=== PATIENT | male | born 1965 | race Caucasian/White ===

== ENCOUNTER 2019-11-12 21:40 | Inpatient (IN) | payer OTHER ==
[~2019-11-12 21:40] MED LIST: SODIUM CHLORIDE 0.9% 1,000 ML IV STA
[2019-11-12] MEDS ORDERED: ACETAMINOPHEN TAB 500 MG TAB PO STA (21:55)
[2019-11-12] MEDS ORDERED: IBUPROFEN 600 MG TAB PO STA (21:55)
[2019-11-12] MEDS: SODIUM CHLORIDE 0.9% 1,000 ML IV SCH (22:06)
[2019-11-12] MEDS: SODIUM CHLORIDE 0.9% 500 ML 500 ML IV SCH ×2 (22:06→23:49)
[2019-11-12 22:10] LABS: INR 1.1 (<1.2); Partial Thromboplastin Time 23.2 sec (22.0-30.0); Prothrombin Time 11.1 sec (9.0-12.0)
[2019-11-12 22:11] LABS: Albumin 3.7 g/dL (3.5-5.0); Calcium 8.4 mg/dL (8.4-10.2); Potassium 4.7 mmol/L (3.5-5.1); Total Bilirubin 0.9 mg/dL (0.2-1.3); Total Protein 6.4 g/dL (6.3-8.2)
[2019-11-12 22:12] LABS: Basophils # (A) 0.1 k/uL (0-0.2); Basophils % (A) 1 %; Eosinophils # (A) 0.1 k/uL (0-0.7); Eosinophils % (A) 1 %; HCT 37.4 % (39.0-53.0); HGB 12.7 gm/dL (13.0-17.5); Lymphocytes # (A) 0.3 k/uL (1.0-4.8); Lymphocytes % (A) 3 %; MCH 31.7 pg (25.0-35.0); MCHC 33.9 g/dL (31.0-37.0); MCV 93.3 fL (80.0-100.0); Mean Platelet Volume 8.2; Monocytes # (A) 0.4 k/uL (0-1.0); Monocytes % (A) 5 %; Neutrophils # (A) 8.8 k/uL (1.3-7.7); Neutrophils % (A) 90 %; Platelet Count 258 k/uL (150-450); RDW 12.3 % (11.5-15.5); WBC 9.8 k/uL (3.8-10.6)
--- NOTE | 2019-11-12 22:20 | ED ---
General Adult HPI - General Chief complaint: Syncope Stated complaint: Syncope, Dizziness Time Seen by Provider: 11/12/19 21:40 Source: patient Mode of arrival: EMS Limitations: no limitations - History of Present Illness Initial comments: Weston is a 54-year-old [place] male who presents the ER today via EMS from the [facility] for evaluation of syncopal episode. Per [facility] staff the patient has been coughing for couple of days, today he was noted to have a syncopal episode and was evaluated by medical staff at the [facility] where he was noted did not have a fever or be tachycardic but developed hives over his body and appeared unwell so EMS was contacted. Patient denies headache or chest pain. - Related Data Allergies Allergy/AdvReac Type Severity Reaction Status Date / Time No Known Allergies Allergy Verified 11/12/19 22:17 Review of Systems ROS Statement: Those systems with pertinent positive or pertinent negative responses have been documented in the HPI. ROS Other: All systems not noted in ROS Statement are negative. Past Medical History Past Medical History: Unable to Obtain History of Any Multi-Drug Resistant Organisms: None Reported Past Surgical History: No Surgical Hx Reported Past Psychological History: No Psychological Hx Reported Smoking Status: Never smoker Past Alcohol Use History: None Reported Past Drug Use History: None Reported General Exam - General Exam Comments Initial Comments: Physical Exam GENERAL: Patient is well-developed and well-nourished. Patient is nontoxic and well- hydrated and is in no distress. HENT: Normocephalic, Atraumatic. EYES: PERRL, EOMI PULMONARY: Unlabored respirations. No audible rales rhonchi or wheezing was noted. CARDIOVASCULAR: There is a regular rate and rhythm without any murmurs gallops or rubs. ABDOMEN: Soft and nontender with normal bowel sounds. SKIN: Skin is clear with no lesions or rashes and otherwise unremarkable. : Deferred NEUROLOGIC: Patient is alert and oriented x3. Moving all extremities spontaneously MUSCULOSKELETAL: Normal extremities with adequate strength and full range of motion. No lower extremity swelling or edema. No calf tenderness. PSYCHIATRIC: Normal psychiatric evaluation. Limitations: no limitations Course Vital Signs 11/12/19 11/12/19 21:43 23:12 Temperature 101.3 F H 100 F H Pulse Rate 92 78 Respiratory 18 19 Rate Blood Pressure 105/57 95/57 O2 Sat by Pulse 95 97 Oximetry EKG Findings - EKG Comments: EKG Findings:: EKG was obtained as part sepsis workup, EKG was obtained at 2153, rate is 80 rhythm is sinus normal axis, normal intervals, CA 166, QRS 80, QTC 423, no acute ST elevations or depressions or evidence of acute ischemia or infarction. Medical Decision Making - Medical Decision Making Patient was seen and evaluated history is obtained from patient, EMS and she'll staff Upon arrival patient is tachycardia in the 90s, febrile with a productive cough Sepsis workup and influenza swabs were obtained EKG was obtained and is nonischemic Labs resulted with influenza A positive, elevated glucose, elevated BUN and creatinine, no leukocytosis, anemia of uncertain etiology Chest X her results with a left lower pneumonia, Rocephin and azithromycin were ordered for treatment Given the patient has Sirs criteria, left lower lobe pneumonia, influenza A, poorly controlled diabetes do not feel he will receive adequate medical care at the [facility] and would benefit from admission the hospital for IV fluid resuscitation, IV antibiotics and close monitoring. Patient agreeable to this. Patient care was discussed with medicine on-call Dr. Murray who presents with plan for admission. - Lab Data Result diagrams: 11/12/19 21:50 11/12/19 21:50 Lab Results 11/12/19 11/12/19 11/12/19 Range/Units 21:50 21:50 21:50 WBC 9.8 (3.8-10.6) k/uL RBC 4.00 L (4.30-5.90) m/uL Hgb 12.7 L (13.0-17.5) gm/dL Hct 37.4 L (39.0-53.0) % MCV 93.3 (80.0-100.0) fL MCH 31.7 (25.0-35.0) pg MCHC 33.9 (31.0-37.0) g/dL RDW 12.3 (11.5-15.5) % Plt Count 258 (150-450) k/uL Neutrophils % 90 % Lymphocytes % 3 % Monocytes % 5 % Eosinophils % 1 % Basophils % 1 % Neutrophils # 8.8 H (1.3-7.7) k/uL Lymphocytes # 0.3 L (1.0-4.8) k/uL Monocytes # 0.4 (0-1.0) k/uL Eosinophils # 0.1 (0-0.7) k/uL Basophils # 0.1 (0-0.2) k/uL PT 11.1 (9.0-12.0) sec INR 1.1 (<1.2) APTT 23.2 (22.0-30.0) sec Sodium 138 (137-145) mmol/L Potassium 4.7 (3.5-5.1) mmol/L Chloride 100 (98-107) mmol/L Carbon Dioxide 23 (22-30) mmol/L Anion Gap 15 mmol/L BUN 36 H (9-20) mg/dL Creatinine 1.62 H (0.66-1.25) mg/dL Est GFR (CKD-EPI)AfAm 54 (>60 ml/min/1.73 sqM) Est GFR (CKD-EPI)NonAf 47 (>60 ml/min/1.73 sqM) Glucose 299 H (74-99) mg/dL Plasma Lactic Acid Luis (0.7-2.0) mmol/L Calcium 8.4 (8.4-10.2) mg/dL Total Bilirubin 0.9 (0.2-1.3) mg/dL AST 26 (17-59) U/L ALT 22 (4-49) U/L Alkaline Phosphatase 86 (38-126) U/L Troponin I (0.000-0.034) ng/mL Total Protein 6.4 (6.3-8.2) g/dL Albumin 3.7 (3.5-5.0) g/dL Influenza Type A RNA (Not Detectd) Influenza Type B (PCR) (Not Detectd) 11/12/19 11/12/19 11/12/19 Range/Units 21:50 21:50 21:50 WBC (3.8-10.6) k/uL RBC (4.30-5.90) m/uL Hgb (13.0-17.5) gm/dL Hct (39.0-53.0) % MCV (80.0-100.0) fL MCH (25.0-35.0) pg MCHC (31.0-37.0) g/dL RDW (11.5-15.5) % Plt Count (150-450) k/uL Neutrophils % % Lymphocytes % % Monocytes % % Eosinophils % % Basophils % % Neutrophils # (1.3-7.7) k/uL Lymphocytes # (1.0-4.8) k/uL Monocytes # (0-1.0) k/uL Eosinophils # (0-0.7) k/uL Basophils # (0-0.2) k/uL PT (9.0-12.0) sec INR (<1.2) APTT (22.0-30.0) sec Sodium (137-145) mmol/L Potassium (3.5-5.1) mmol/L Chloride (98-107) mmol/L Carbon Dioxide (22-30) mmol/L Anion Gap mmol/L BUN (9-20) mg/dL Creatinine (0.66-1.25) mg/dL Est GFR (CKD-EPI)AfAm (>60 ml/min/1.73 sqM) Est GFR (CKD-EPI)NonAf (>60 ml/min/1.73 sqM) Glucose (74-99) mg/dL Plasma Lactic Acid Luis 3.4 H* (0.7-2.0) mmol/L Calcium (8.4-10.2) mg/dL Total Bilirubin (0.2-1.3) mg/dL AST (17-59) U/L ALT (4-49) U/L Alkaline Phosphatase (38-126) U/L Troponin I <0.012 (0.000-0.034) ng/mL Total Protein (6.3-8.2) g/dL Albumin (3.5-5.0) g/dL Influenza Type A RNA Detected H (Not Detectd) Influenza Type B (PCR) Not Detected (Not Detectd) Disposition Clinical Impression: Pneumonia, Influenza A, Sepsis, Uncontrolled diabetes mellitus, MIGUEL (acute k idney injury) Disposition: ADMITTED IP TO THIS HOSP Condition: Serious Is patient prescribed a controlled substance at d/c from ED?: No Referrals: None,Stated [Primary Care Provider] - 1-2 days
--- NOTE | 2019-11-12 22:46 | XR ---
EXAMINATION TYPE: XR chest 2V DATE OF EXAM: 11/12/2019 COMPARISON: NONE HISTORY: Syncope TECHNIQUE: 2 views FINDINGS: There is some patchy airspace infiltrate left lower lobe. Right lung is clear. There is no heart failure. There are sternal wires. IMPRESSION: Left lower lobe pneumonia. Normal heart.
[2019-11-12] MEDS ORDERED: AZITHROMYCIN 500 MG in SODIUM CHLORIDE 0.9% 250 ML IVPB STA (23:38)
[2019-11-12] MEDS ORDERED: NALOXONE 0.4 MG/ML 1 ML VIAL IV PRN (23:43)
[2019-11-13 00:22] LABS: Glucose,Whole Blood 249 mg/dL (75-99)
[2019-11-13 06:59] LABS: Glucose,Whole Blood 311 mg/dL (75-99)
[2019-11-13] MEDS: SODIUM CHLORIDE 0.9% 1,000 ML IV SCH ×3 (07:04→23:28)
[2019-11-13] MEDS: ACETAMINOPHEN TAB 325 MG TAB PO PRN ×2 (08:06→21:28)
[2019-11-13] MEDS: INSULIN ASPART (NovoLOG) 100 UNIT/ML VIAL SQ SCH ×4 (08:06→20:44)
[2019-11-13] MEDS: OSELTAMIVIR 75 MG CAP PO SCH ×2 (08:07→20:43)
[2019-11-13] MEDS: IBUPROFEN 400 MG TAB PO PRN ×2 (08:07→19:35)
[2019-11-13 11:39] LABS: Glucose,Whole Blood 266 mg/dL (75-99)
[2019-11-13] MEDS: guaiFENesin 600 MG TABLET.ER PO PRN ×2 (12:54→23:28)
[2019-11-13 16:47] LABS: Glucose,Whole Blood 283 mg/dL (75-99)
[2019-11-13] MEDS ORDERED: ALBUTEROL NEBULIZED 2.5 MG/3 ML INHALATION PRN (17:57)
[2019-11-13] MEDS ORDERED: IPRATROPIUM-ALBUTEROL 3 ML NEB INHALATION PRN (18:31)
[2019-11-13 19:24] LABS: HCT 36.1 % (39.0-53.0); MCH 31.8 pg (25.0-35.0); MCHC 33.3 g/dL (31.0-37.0); MCV 95.5 fL (80.0-100.0); Mean Platelet Volume 8.3; Platelet Count 183 k/uL (150-450); RBC 3.78 m/uL (4.30-5.90); RDW 12.5 % (11.5-15.5); WBC 13.9 k/uL (3.8-10.6)
[2019-11-13] MEDS: ATORVASTATIN 20 MG TAB PO SCH (19:31)
[2019-11-13 19:35] LABS: ALT 18 U/L (4-49); AST 23 U/L (17-59); African American GFR (CKD) >90 (>60 ml/min/1.73 sqM); Albumin 2.8 g/dL (3.5-5.0); Alkaline Phosphatase 80 U/L (38-126); Anion Gap 9 mmol/L; Blood Urea Nitrogen 25 mg/dL (9-20); Carbon Dioxide 20 mmol/L (22-30); Chloride 108 mmol/L (98-107); Glucose 288 mg/dL (74-99); Non-African American GFR(CKD) >90 (>60 ml/min/1.73 sqM); Potassium 4.3 mmol/L (3.5-5.1); Sodium 137 mmol/L (137-145); Total Bilirubin 0.7 mg/dL (0.2-1.3); Total Protein 5.4 g/dL (6.3-8.2)
[2019-11-13 19:46] LABS: Band Neutrophils % 31 %; Lymphocytes # (M) 0.97 k/uL (1.0-4.8); Metamyelocytes # (M) 1.11 k/uL (0); Metamyelocytes % 8 %; Monocytes # (M) 0.42 k/uL (0-1.0); Myelocytes # (M) 0.14 k/uL (0); Myelocytes % 1 %; Neutrophils % (M) 51 %; Nucleated Red Blood Cells 0 /100 WBC (0-0); Total Cells Counted 200
--- NOTE | 2019-11-13 19:46 | PN ---
PROGRESS NOTE DATE OF SERVICE: 11/13/2019 CHIEF COMPLAINT: Pneumonitis and uncontrolled diabetes. HISTORY OF PRESENT ILLNESS: This gentleman is doing a bit better, but he is still febrile and is still very congested, short of breath. Blood sugars are still elevated. PHYSICAL EXAMINATION: He is slightly diaphoretic. Head, ears, eyes, nose, mouth, and throat were normal. Chest demonstrates decreased breath sounds bilaterally, anteriorly and posteriorly with rales, rhonchi and productive cough. Cardiac exam demonstrates tachycardia. Abdomen is soft, nontender. IMPRESSION: 1. Bilateral bronchopneumonia. 2. Uncontrolled diabetes mellitus. PLAN: Continue with IV fluids and antibiotics. MMODL / IJN: [id number] /
[2019-11-13 19:55] LABS: Glucose,Whole Blood 274 mg/dL (75-99)
[2019-11-13] MEDS: IPRATROPIUM-ALBUTEROL 3 ML NEB INHALATION PRN (20:19)
--- NOTE | 2019-11-13 20:31 | HP ---
HISTORY AND PHYSICAL CHIEF COMPLAINT: Sepsis and pneumonitis. HISTORY OF PRESENT ILLNESS: This is the first admission for this 55-year-old Latin-Pak[place] male, brought in from the [facility]. He developed a URI with fever, cough, and chills and came to the emergency room, where he was found to be influenza positive and had bilateral bronchopneumonia. He was admitted for treatment. REVIEW OF SYSTEMS: He does have a history of diabetes and is on insulin in the [facility]. Review of systems is otherwise unremarkable. He has had no neurologic problems, heart disease, hemoptysis, abdominal pain, vomiting, diarrhea, renal failure, dysuria, hematuria, frequency. He does not smoke. In the [facility] he is on regular insulin, albuterol, aspirin, atorvastatin, lisinopril, and omeprazole. He also uses NPH 15 units twice a day. PHYSICAL EXAMINATION: Blood pressure is 145/85 with a pulse of 87, respirations 34, and his temperature is 99. In general, he appeared to be well developed and in no acute distress. He was somewhat diaphoretic. Head, ears, eyes, nose, mouth, and throat were normal. The chest demonstrates bilateral rales and rhonchi. The cardiac exam demonstrates tachycardia. The abdomen is soft and nontender. The extremities are normal. Neurologically, he is intact. IMPRESSION: 1. Influenza A. 2. Bronchopneumonia. 3. Type 2 insulin-dependent diabetes mellitus. PLAN: 1. Bed rest. 2. IV fluids. 3. Updrafts. 4. IV antibiotics. MMAMINTAL / PRIETON: [id number] /
[2019-11-13] MEDS: INSULIN NPH 300 UNIT/3 ML VIAL SQ SCH (20:44)
[2019-11-13] MEDS ORDERED: INSULIN REGULAR 100 UNIT/ML VIAL SQ SCH (21:00)
[2019-11-14] MEDS: IBUPROFEN 400 MG TAB PO PRN ×2 (03:48→16:59)
[2019-11-14] MEDS: SODIUM CHLORIDE 0.9% 1,000 ML IV SCH ×3 (03:49→17:02)
[2019-11-14 06:59] LABS: Glucose,Whole Blood 196 mg/dL (75-99)
[2019-11-14] MEDS: INSULIN NPH 300 UNIT/3 ML VIAL SQ SCH ×2 (07:12→21:07)
[2019-11-14] MEDS: INSULIN ASPART (NovoLOG) 100 UNIT/ML VIAL SQ SCH ×4 (07:12→21:06)
[2019-11-14] MEDS: OSELTAMIVIR 75 MG CAP PO SCH ×2 (07:13→21:06)
[2019-11-14] MEDS: LISINOPRIL 5 MG TAB PO SCH (07:13)
[2019-11-14] MEDS: ACETAMINOPHEN TAB 325 MG TAB PO PRN ×2 (07:13→17:00)
[2019-11-14] MEDS: ASPIRIN 81 MG PO SCH (07:13)
[2019-11-14] MEDS: PANTOPRAZOLE 40 MG TABLET PO SCH (07:14)
[2019-11-14] MEDS: IPRATROPIUM-ALBUTEROL 3 ML NEB INHALATION PRN (08:28)
--- NOTE | 2019-11-14 10:30 | CT ---
EXAMINATION TYPE: CT angio chest DATE OF EXAM: 11/14/2019 COMPARISON: None HISTORY: Influenza A, Pneumonia, Hemoptysis CT DLP: 371.8 mGycm CONTRAST: CT chest with contrast and 3D reconstruction with MIP imaging is performed without and with IV Contra st, patient injected with 100 ml mL of Isovue 370. Contrast-enhanced CT of the chest was performed through the course of the pulmonary arteries with liliana g and mediastinal window settings submitted. 3D reconstruction with MIP imaging was also performed. PULMONARY ARTERIES: The pulmonary arteries and their major tributaries are patent. I do not see amelie dence for sizable filling defect to suggest pulmonary embolic process. LUNGS: Left lower lobe infiltrate with associated pleural effusion. The remainder of the lungs are cl ear. MEDIASTINUM: Thoracic aorta is of normal caliber,however, evaluation is limited given timing of the contrast bolus. If there is concern for thoracic aortic pathology consider FRED. Correlate clinicall y . The heart is moderately enlarged. No evidence for mediastinal mass. No mediastinal lymph nodes greater than 1cm. HILAR STRUCTURES: No evidence for mass. No hilar lymph nodes greater than 1 cm. UPPER ABDOMEN: No significant abnormality is seen. IMPRESSION: 1. No evidence for Pulmonary embolism at this time. 2. Left lower lobe infiltrate and pleural effusion. Correlate for pneumonia.
[2019-11-14 11:40] LABS: Glucose,Whole Blood 266 mg/dL (75-99)
[2019-11-14 11:41] LABS: Hemoglobin A1C 8.3 % (4.0-6.0)
[2019-11-14] MEDS ORDERED: LEVOFLOXACIN 500 MG TAB PO SCH (13:00)
[2019-11-14] MEDS: guaiFENesin 600 MG TABLET.ER PO PRN (17:00)
[2019-11-14 17:03] LABS: Glucose,Whole Blood 206 mg/dL (75-99)
[2019-11-14] MEDS ORDERED: AMPICILLIN-SULBACTAM 1.5 GM in SODIUM CHLORIDE 0.9% 50 ML IVPB SCH (18:00)
--- NOTE | 2019-11-14 19:44 | PN ---
PROGRESS NOTE CHIEF COMPLAINT: Pneumonitis and fever. HISTORY OF PRESENT ILLNESS: This gentleman is still not feeling well. He is still running a temp. Blood sugars are elevated. He is also now coughing up blood. PHYSICAL EXAM: Head ears, eyes, nose, mouth, and throat are normal. Chest demonstrates bilateral rales and rhonchi in both lung guaman. Cardiac exam remains normal. Abdomen is soft, nontender. IMPRESSION: 1. Pneumonitis. 2. Uncontrolled diabetes. 3. Hemoptysis. PLAN: 1. Obtain results of TB skin test done from the [facility] when he was admitted there: Nonreactive. 2. Consult with Infectious Disease and Pulmonology. 3. CTA of the chest and continue IV fluids, antibiotics and updrafts. MMODL / IJN: [id number] /
[2019-11-14 20:59] LABS: Glucose,Whole Blood 227 mg/dL (75-99)
[2019-11-14] MEDS: AMPICILLIN-SULBACTAM 3 GM in SODIUM CHLORIDE 0.9% 100 ML IVPB SCH (21:05)
[2019-11-14] MEDS: ATORVASTATIN 20 MG TAB PO SCH (21:06)
[2019-11-14] MEDS: HEPARIN SODIUM,PORCINE 5,000 UNIT/ML 1 ML VIAL SQ SCH (21:08)
--- NOTE | 2019-11-14 23:34 | P.CONS ---
History of Present Illness - Reason for Consult Consult date: 11/14/19 Acute influenza pneumonia Requesting physician: Harinder Murray - Chief Complaint Shortness of breath or cough x few days - History of Present Illness Patient is a 54-year-old male currently at [facility] patient currently seem to have any symptoms of shortness of breath and cough that have been going on for the last few days on the day of presentation to the hospital the patient did have severe coughing episode and subsequently did have a syncopal episode EMS was called and patient was noticed to be unwell did have a fever and tachycardia subsequently the patient was brought to [facility] ER for further management of the same, on arrival to the ER the patient did have a fever of 101F. He did have mild tachycardia with heart rate of 92 initial white count was normal subsequently did have elevated white count 13.8 chest x- ray was left lower lobe pneumonia influenza PCR came back positive patient has been started on Tamiflu along with IV cefazolin he did have a CT angiogram completed this morning that was negative for PE however did shows left lower lobe pneumonia with some parapneumonic effusion infectious disease was consulted for further recommendation regarding antibiotic therapy the patient continued to be not feeling well though no fever has been recorded in the last 2 days the patient denies having any chest pain he continued to have a cough which is moderate in intensity and ending up some sputum with minimal hemoptysis no pleuritic chest pain no nausea no vomiting no shortness of for no bone pain and no diarrhea, patient did have a TB test Done at the [facility] emergency room 2 weeks ago that has been negative Review of Systems Positive point has been mentioned in the HPI rest of the systems are negative Past Medical History Past Medical History: Diabetes Mellitus, Eye Disorder, Pneumonia Additional Past Medical History / Comment(s): cataracts unable to see with his left eye and only able to see shapes peripherally in the right eye, no teeth on top and missing a few on the bottom. History of Any Multi-Drug Resistant Organisms: None Reported Past Surgical History: Appendectomy, Cardiac Valve Replacement, Orthopedic Surgery Additional Past Surgical History / Comment(s): appendix removed in 1991, heart valve replaced in 2013, and elbow surgery in 2014. Past Anesthesia/Blood Transfusion Reactions: No Reported Reaction Past Psychological History: No Psychological Hx Reported Smoking Status: Former smoker Additional Past Alcohol Use History / Comment(s): States quit smoking 20-25 years ago and stopped drinking about 10 years ago. Past Drug Use History: None Reported Medications and Allergies Home Medications Medication Instructions Recorded Confirmed Type Albuterol Nebulized [Ventolin 2.5 mg INHALATION RT-QID PRN 11/13/19 11/13/19 History Nebulized] Aspirin EC [Ecotrin Low Dose] 81 mg PO DAILY 11/13/19 11/13/19 History Atorvastatin [Lipitor] 20 mg PO HS 11/13/19 11/13/19 History Azithromycin [Zithromax Z-pack] See Taper PO DAILY 11/13/19 11/13/19 History Insulin NPH Human Isophane 15 unit SQ BID 11/13/19 11/13/19 History [humuLIN N] Insulin Regular [HumuLIN R] See Protocol SQ ACHS 11/13/19 11/13/19 History Lisinopril [Zestril] 5 mg PO DAILY 11/13/19 11/13/19 History Omeprazole 20 mg PO DAILY 11/13/19 11/13/19 History Allergies Allergy/AdvReac Type Severity Reaction Status Date / Time No Known Allergies Allergy Verified 11/13/19 12:07 Physical Exam Vitals: Vital Signs Temp Pulse Pulse Resp BP Pulse Ox 11/14/19 18:55 98.4 F 70 128/72 97 11/14/19 15:00 99.6 F 74 17 131/68 95 11/14/19 08:42 86 11/14/19 08:32 80 11/14/19 07:00 98.1 F 76 17 125/61 95 11/14/19 02:49 98.5 F 71 18 109/66 92 L Intake and Output 11/14/19 11/14/19 11/15/19 14:59 22:59 06:59 Intake Total 2079 Balance 2079 Intake: Intake, IV Titration 440 Amount Sodium Chloride 0.9% 1, 390 000 ml @ 130 mls/hr IV . Q7H42M [facility]OLO Rx#:[id number] ceFAZolin 1,000 mg In 50 Sodium Chloride 0.9% 50 ml @ 100 mls/hr IVPB Q8HR [facility]OLO Rx#:[id number] Oral 1640 Other: Voiding Method Toilet # Voids 3 # Bowel Movements 1 GENERAL DESCRIPTION: Middle-aged male lying in bed, no distress. No tachypnea or accessory muscle of respiration use. HEENT: Shows Pallor , no scleral icterus. Oral mucous membrane is dry. No pharyngeal erythema or thrush NECK: Trachea central, no thyromegaly. LUNGS: Unlabored breathing. Coarse breath sounds at bases bilaterally No wheeze or crackle. HEART: S1, S2, regular rate and rhythm. No loud murmur ABDOMEN: Soft, no tenderness , guarding or rigidity, no organomegaly EXTREMITIES: No edema of feet. SKIN: No rash, no masses palpable. NEUROLOGICAL: The patient is awake, alert, oriented x3, mood and affect normal. Results CBC & Chem 7: 11/13/19 18:58 11/13/19 18:58 Labs: Abnormal Lab Results - Last 24 Hours (Table) 11/13/19 11/14/19 11/14/19 Range/Units 18:58 06:57 11:38 POC Glucose (mg/dL) 196 H 266 H (75-99) mg/dL Hemoglobin A1c 8.3 H (4.0-6.0) % 11/14/19 11/14/19 Range/Units 17:01 20:57 POC Glucose (mg/dL) 206 H 227 H (75-99) mg/dL Hemoglobin A1c (4.0-6.0) % Microbiology - Last 24 Hours (Table) 11/14/19 11:00 Acid Fast Bacilli Culture - Preliminary Sputum 11/12/19 22:05 Blood Culture - Preliminary Blood No Growth after 24 hours Assessment and Plan Assessment: 1-patient presented to hospital with increasing shortness of breath or cough condition and did have a syncopal episode in this patient who was febrile on presentation along with tachycardia meeting criteria for sepsis source likely acute influenza with secondary bacterial pneumonia in view of for resolution of the fever with cefazolin could be community acquired pathogen, clinical suspicion for underlying tuberculosis in this patient who did have a short history and recently tested for TB antigen that was negative (1) Influenza A Current Visit: Yes Status: Acute Code(s): J10.1 - FLU DUE TO OTH IDENT INFLUENZA VIRUS W OTH RESP MANIFEST SNOMED Code(s): 266636298 (2) Pneumonia Current Visit: Yes Status: Acute Code(s): J18.9 - PNEUMONIA, UNSPECIFIED ORGANISM SNOMED Code(s): 948888170 (3) Sepsis Current Visit: Yes Status: Acute Code(s): A41.9 - SEPSIS, UNSPECIFIED ORGANISM SNOMED Code(s): 30453162 Plan: 1-obtain sputum for Gram stain and culture 2 Tamiflu 75 mg by mouth twice a day for 5 days 3-discontinue cefazolin 4-start the patient on Rocephin 2 g daily and Levaquin 500 daily We will follow on clinical condition and cultures to further adjust medication if needed Thank you for this consultation will follow this patient with you Time with Patient: Greater than 30
[2019-11-14 23:37] LABS: RBC,Urine 1 /hpf (0-5); WBC,Urine 1 /hpf (0-5)
[2019-11-14 23:41] LABS: Appearance,Urine Clear (Clear); Bilirubin,Urine Negative (Negative); Blood,Urine Small (Negative); Color,Urine Yellow; Glucose,Urine (UA) 3+ (Negative); Ketones,Urine 1+ (Negative); Protein,Urine 2+ (Negative); Urobilinogen,Urine <2.0 mg/dL (<2.0)
[2019-11-14 23:42] LABS: Leukocyte Esterase,Urine Negative (Negative)
[2019-11-14 23:45] LABS: Nitrite,Urine Negative (Negative)
[2019-11-15] MEDS: AMPICILLIN-SULBACTAM 3 GM in SODIUM CHLORIDE 0.9% 100 ML IVPB SCH ×4 (00:26→19:50)
[2019-11-15] MEDS: IPRATROPIUM-ALBUTEROL 3 ML NEB INHALATION PRN ×2 (01:17→08:44)
[2019-11-15] MEDS: IBUPROFEN 400 MG TAB PO PRN ×2 (01:34→12:55)
[2019-11-15] MEDS: ACETAMINOPHEN TAB 325 MG TAB PO PRN ×3 (01:34→23:43)
[2019-11-15] MEDS: SODIUM CHLORIDE 0.9% 1,000 ML IV SCH ×3 (03:47→22:55)
--- NOTE | 2019-11-15 06:08 | CONS ---
CONSULTATION Weston Cespedes is a 54-year-old male who presented to the ED when he was transferred from the [facility]. He had a syncopal episode and had been coughing for a few days. He complained of pain in the left side of his chest that is pleuritic in nature. He has been bringing up some grayish phlegm as well. He was seen in the ER and admitted for further evaluation and management. PAST MEDICAL HISTORY: Apparently negative for COPD, possibly positive for asthma. Positive for diabetes mellitus. Positive hypertension. SOCIAL HISTORY: He is a never smoker. He is in [facility] at this time. MEDICATIONS: His medications prior to admission were omeprazole, Zestril, insulin, Zithromax, Lipitor, Ecotrin, and Ventolin. ALLERGIES: Patient has no known drug allergies. PHYSICAL EXAMINATION: On physical examination, he was short of breath. His respiratory rate is 17, pulse rate of 74, temperature 99.6, blood pressure 131/68. His temperature when he came to the ER was 101.3 degrees Fahrenheit, blood pressure was 105/57, pulse rate of 92. HEENT reveals pupils are equal. Chest reveals decreased breath sounds in the left hemithorax. No clear wheeze. Prolonged exhalation. Right side is relatively clear. Cardiovascular system reveals an S1, S2. No S3, no S4. No murmurs. Abdomen is soft. There is no pedal edema. CT scan of the chest showed a left lower zone infiltrate. There is a pleural effusion that tracks all the way to the apex and seems somewhat loculated and is compressing the lung at the apex as well. LABS: Labs revealed a white blood cell count of 9.8, that increased to 13.9 yesterday, hemoglobin of 12 with 11.3 thousand neutrophils. Influenza type A is positive. Plasma lactic acid was 3.4 when he came in and it has come down to 1.5. Albumin is 2.8. IMPRESSION AT THIS TIME: 1. Left-sided pneumonia with possible left-sided empyema. 2. Diabetes mellitus type 2. 3. Possible asthma. At this point in time would change his antibiotic coverage to include coverage for anaerobes with Unasyn at 3 grams IV piggyback q.6. Continue him on other antibiotics per ID and keep him on GI and DVT prophylaxis. Keep his sugars under control using insulin. His prognosis at this time is guarded. We would set him up for an interventional radiology ultrasound-guided thoracentesis partly to obtain cultures and diagnosis. He may require further intervention depending on what the fluid shows. His prognosis is guarded. MMODL / IJN: [id number] /
[2019-11-15 06:51] LABS: Glucose,Whole Blood 379 mg/dL (75-99)
[2019-11-15] MEDS: HEPARIN SODIUM,PORCINE 5,000 UNIT/ML 1 ML VIAL SQ SCH ×2 (07:42→21:06)
[2019-11-15] MEDS: PANTOPRAZOLE 40 MG TABLET PO SCH (07:43)
[2019-11-15] MEDS: INSULIN ASPART (NovoLOG) 100 UNIT/ML VIAL SQ SCH ×4 (07:43→21:07)
[2019-11-15] MEDS: LISINOPRIL 5 MG TAB PO SCH (07:43)
[2019-11-15] MEDS: ASPIRIN 81 MG PO SCH (07:43)
[2019-11-15] MEDS: INSULIN NPH 300 UNIT/3 ML VIAL SQ SCH ×2 (07:43→21:06)
[2019-11-15] MEDS: OSELTAMIVIR 75 MG CAP PO SCH ×2 (07:43→21:07)
[2019-11-15] MEDS ORDERED: INSULIN NPH 300 UNIT/3 ML VIAL SQ ONE (10:30)
[2019-11-15 12:07] LABS: Glucose,Whole Blood 147 mg/dL (75-99)
[2019-11-15] MEDS: guaiFENesin 600 MG TABLET.ER PO PRN (12:56)
--- NOTE | 2019-11-15 13:18 | PN ---
PROGRESS NOTE DATE OF SERVICE: 11/15/2019 Patient is a 54-year-old male seen sitting up in bed. He Is awake and alert. Continues to complain of cough ongoing with intermittent sputum production with bloody sputum. The patient is hemodynamically stable, afebrile, in no acute distress. ON PHYSICAL EXAM: VITAL SIGNS: Temp 98.2, heart rate is 80, respiratory rate is 18, blood pressure is 146/70, O2 sats 95% on room air. HEENT. Head is normocephalic, atraumatic. Neck is supple. Trachea is midline. Lungs are decreased with end-expiratory wheeze. HEART: S1, S2 are heard. Not tachycardic. ABDOMEN: Soft. Bowel sounds heard. EXTREMITIES: With no edema. NEUROLOGIC: Patient is awake and alert. LABS: No new labs to review. IMAGING: No new imaging to review. IMPRESSION AT THIS TIME: 1. Left-sided pneumonia with possible left-sided empyema. 2. Diabetes mellitus type 2. 3. Possible asthma. PLAN: Continue current medications, which have been reviewed. Continue antibiotics per Infectious Disease. Continue GI and DVT prophylaxis. Continue insulin for control of hyperglycemia. Interventional Radiology has been consulted for ultrasound-guided thoracentesis per nursing that will be done probably tomorrow. Will add budesonide 0.5 mg via nebulizer b.i.d. to see if that will help with decreased airway inflammation and continue to follow patient closely with you making further changes as necessary. MMODL / IJN: [id number] /
--- NOTE | 2019-11-15 13:32 | PN ---
PROGRESS NOTE CHIEF COMPLAINT: Pneumonitis and diabetes. HISTORY OF PRESENT ILLNESS: This gentleman is doing a little bit better. Cough is a little bit less congested. Sugar is still high. PHYSICAL EXAMINATION: Chest still demonstrates rales and rhonchi bilaterally with expiratory wheezing. Cardiac exam is normal. Abdomen is soft, nontender. IMPRESSION: 1. Bronchial pneumonia. 2. Uncontrolled diabetes. PLAN: Increase his Novolin insulin to 15 to 20 units twice a day and continue with updrafts, antibiotics and IV fluids. MMODL / IJN: [id number] /
--- NOTE | 2019-11-15 14:01 | CDI ---
Documentation Clarification Form Date: 11/15/2019 01:43:58 PM From: Brie Hartman RN, CCDS Admit Date: 11/12/2019 11:44:00 PM Patient Name: Weston Cespedes Visit Number: [id number] Discharge Date: ATTENTION: The Clinical Documentation Specialists (CDI) and [facility] Coding Staff appreciate your assistance in clarifying documentation. Please respond to the clarification below the line at the bottom and electronically sign. The CDI & [facility] Coding staff will review the response and follow-up if needed. Please note: Queries are made part of the Legal Health Record. If you have any questions, please contact the author of this message via ITS. Dr. Harinder Murray The patient has uncontrolled diabetes, as indicated on progress note on 11/13- 11/14 and further clarification History/Risk Factors: Diabetes Mellitus type 2, Clinical Indicators: 54-year-old male who presents to ER on 11/12 for evaluation of syncopal episode and coughing for couple of days. 11/12 VS 105/57 92 18 101.3 11/12 Labs: lactic acid 3.4. Influenza A detected: Glucose 299, 11/13 Glucose: 311, 266, 274 Treatment: Novolon SQ ACHS CHOLO coverage Humulin N 20 units SQ BID Monitor Glucose ACHS In order to capture the severity of Illness and necessary documentation specificity, please clarify Uncontrolled Diabetes Mellitus: DM Type 2, with Hyperglycemia DM Type 2 with Hypoglycemia Other, please specify Unable to Determine (Last Revision: June 2017) MTDD
--- NOTE | 2019-11-15 15:51 | PN ---
PROGRESS NOTE DATE OF SERVICE: 11/15/2019 REASON FOR FOLLOWUP: 1. Acute influenza. 2. Pneumonia and a question of empyema. INTERVAL HISTORY: The patient is currently afebrile. He is still complaining of shortness of breath. He continues to have a cough which has been moderate in intensity, but he is not bringing up any more sputum. No hemoptysis. No nausea, no vomiting. No abdominal pain or diarrhea. PHYSICAL EXAMINATION: Blood pressure 146/70 with a pulse of 78, temperature 98.2. He is 95% on room air. General description is a middle-aged male lying in bed in no distress. RESPIRATORY SYSTEM: Unlabored breathing. Coarse breath sounds in the bases bilaterally. HEART: S1, S2. Regular rate and rhythm. A ABDOMEN: Soft. No tenderness. T LABS: No new labs have been obtained today. DIAGNOSTIC IMPRESSION AND PLAN: 1. Patient with acute influenza, for which the patient is currently covered with Tamiflu; to finish a 5-day course of therapy. 2. Patient with left lower lobe pneumonia with concern for possible empyema. The thoracocentesis per Radiology is currently pending. Patient is covered with Unasyn; to continue, adjusting antibiotic further based on the culture report. Continue with supportive care. MMODL / IJN: [id number] /
[2019-11-15 16:56] LABS: Glucose,Whole Blood 92 mg/dL (75-99)
--- NOTE | 2019-11-15 18:12 | US ---
EXAMINATION TYPE: US chest DATE OF EXAM: 11/15/2019 COMPARISON: CT 11/14/2019 CLINICAL HISTORY: pleural Effusion. TECHNIQUE: Targeted ultrasound of the posterior lower bilateral hemithoraces EXAM MEASUREMENTS: Left Pleural Effusion pocket size: 9.0 cm - Debris visualized within Left skin surface to fluid distance: 4.3 cm Left side marked for possible thoracentesis outside the dept. Pulmonologists are able to review the images in the patient?s EMR. Debris visualized within IMPRESSIONS: Left pleural effusion is demonstrated.
[2019-11-15] MEDS: BUDESONIDE 0.5 MG/2 ML NEBU INHALATION SCH (19:06)
[2019-11-15 20:20] LABS: Glucose,Whole Blood 168 mg/dL (75-99)
[2019-11-15] MEDS: ATORVASTATIN 20 MG TAB PO SCH (21:07)
[2019-11-16] MEDS: AMPICILLIN-SULBACTAM 3 GM in SODIUM CHLORIDE 0.9% 100 ML IVPB SCH ×5 (00:49→23:25)
[2019-11-16] MEDS: SODIUM CHLORIDE 0.9% 1,000 ML IV SCH ×3 (03:09→17:17)
[2019-11-16] MEDS: guaiFENesin 600 MG TABLET.ER PO PRN ×2 (05:51→21:08)
[2019-11-16 06:57] LABS: Glucose,Whole Blood 168 mg/dL (75-99)
[2019-11-16] MEDS: INSULIN ASPART (NovoLOG) 100 UNIT/ML VIAL SQ SCH ×4 (07:12→21:01)
[2019-11-16] MEDS: INSULIN NPH 300 UNIT/3 ML VIAL SQ SCH ×2 (07:12→17:17)
[2019-11-16] MEDS: BUDESONIDE 0.5 MG/2 ML NEBU INHALATION SCH ×2 (07:48→20:08)
[2019-11-16] MEDS: IPRATROPIUM-ALBUTEROL 3 ML NEB INHALATION PRN (07:48)
[2019-11-16] MEDS: LISINOPRIL 5 MG TAB PO SCH (08:30)
[2019-11-16] MEDS: PANTOPRAZOLE 40 MG TABLET PO SCH (08:30)
[2019-11-16] MEDS: OSELTAMIVIR 75 MG CAP PO SCH ×2 (08:30→21:01)
[2019-11-16] MEDS: HEPARIN SODIUM,PORCINE 5,000 UNIT/ML 1 ML VIAL SQ SCH ×3 (10:11→21:01)
[2019-11-16] MEDS: ASPIRIN 81 MG PO SCH ×2 (10:11→12:07)
--- NOTE | 2019-11-16 11:38 | CDI ---
Documentation Clarification Form Date: 11/16/2019 11:08:19 AM From: Brie Hartman RN, CCDS Admit Date: 11/12/2019 11:44:00 PM Patient Name: Weston Cespedes Visit Number: [id number] Discharge Date: ATTENTION: The Clinical Documentation Specialists (CDI) and [facility] Coding Staff appreciate your assistance in clarifying documentation. Please respond to the clarification below the line at the bottom and electronically sign. The CDI & [facility] Coding staff will review the response and follow-up if needed. Please note: Queries are made part of the Legal Health Record. If you have any questions, please contact the author of this message via ITS. Dr. Harinder Murray The diagnosis sepsis was documented in the emergency room clinical impression, in the H&P on 11/13, as chief complaint sepsis and pneumonitis, but is not noted in subsequent documentation. History/Risk Factors: Influenza A, Bronchopneumonia, Diabetes Mellitus Type 2 Clinical Indicators: 54-year-old male present to ER on 11/12 for evaluation of syncopal episode. He has been coughing, developed hives over his body and appeared unwell. 11/12 on admission Vital signs: 105/57, 92 18 101.3, 95/57 78 19 100.0 97 % RA 11/12 Labs: WBC 9.8, Creatinine 1.62, Lactic acid 3.4 ER: Given the patient has SIRS criteria, left lower lobe pneumonia, influenza A, poorly controlled diabetes would benefit from admission. IV antibiotics and close monitoring. 11/13 ID (Dr. Joseph) " this patient who was febrile on presentation along with tachycardia meeting criteria for sepsis source likely acute influenza with secondary bacterial pneumonia" Treatment: Unasyn 3 gm IV Q 6 hrs Pulmicort 0.5 mg Inhalation bid Tamiflu 75 MG po Q 12 hrs Please clarify if the sepsis was: Present/active this admission Treated and resolved this admission Ruled out Other, please specify Clinically unable to determine (Last Query Form Revision: May 2019) JESUSITAD
[2019-11-16 11:57] LABS: Glucose,Whole Blood 211 mg/dL (75-99)
[2019-11-16] MEDS: ACETAMINOPHEN TAB 325 MG TAB PO PRN ×2 (12:07→21:08)
--- NOTE | 2019-11-16 12:11 | XR ---
EXAMINATION TYPE: XR chest 1V portable DATE OF EXAM: 11/16/2019 Comparison: CT 11/14/2019 Clinical History: 54-year-old male post left thoracentesis Findings: Median sternotomy wires and post-CABG clips in the mediastinum. Heart remains borderline enlarged. Re sidual small left effusion but with extensive opacities throughout the left mid and lower lung. No pn eumothorax seen. Impression: Residual small left effusion but with extensive opacities throughout the left mid and lower lung. Pat ient should be followed to exclude the development of cavitary pneumonia or cavitary change from atyp ical infections.
--- NOTE | 2019-11-16 14:08 | PN ---
PROGRESS NOTE Patient was seen again on 11/16/2019. He underwent thoracentesis but apparently they could only get about 50 mL of fluid. He continues to have shortness of breath. On physical examination, his respiratory rate is 18, pulse rate of 90, blood pressure 157/83, O2 saturation on 2 L by nasal cannula is 97%. HEENT: Reveals pupils that are equal. Chest reveals decreased breath sounds on the left. Cardiovascular system reveals an S1, S2. Abdomen is soft. There is no pedal edema. IMPRESSION: 1. Left-sided empyema with loculated effusion likely for which he may benefit from decortication and will consult thoracic surgery to further evaluate him. 2. Diabetes mellitus. 3. Influenza A. At this point in time, continue him on his current medications and antibiotics per ID. Increase his activity level and have thoracic surgery further evaluate the patient. LENY / ARANZA: [id number] /
--- NOTE | 2019-11-16 15:59 | US ---
EXAMINATION TYPE: US thoracentesis DATE OF EXAM: 11/16/2019 COMPARISON: NONE HISTORY: Pleural effusion. FINDINGS: Maximal barrier technique was utilized. The skin overlying a suitable pocket of fluid was localized and the overlying skin prepped and draped. Lidocaine was used for local anesthesia. Ultras ound was used with sterile technique. A 5 Frisian catheter over guide needle was advanced into the pl eural fluid collection using ultrasound guidance and the needle removed, catheter advanced. Approxim ately 50 cc of straw colored turbid fluid was removed. Specimen sent for laboratory analysis. Cathet er was withdrawn and hemostasis achieved. There is no immediate complication. The patient discharge d in stable condition without complication. Postprocedure chest x-ray was pending. Low-level internal echoes are present suggesting some loculation, dense consolidation. IMPRESSION: STATUS POST ULTRASOUND GUIDED DIAGNOSTIC THORACENTESIS, POST PROCEDURE CHEST X-RAY PENDIN G. THIS PROCEDURE WAS PERFORMED BY THE UNDERSIGNED.
[2019-11-16 17:09] LABS: Glucose,Whole Blood 196 mg/dL (75-99)
[2019-11-16] MEDS: LISINOPRIL 20 MG TAB PO SCH (17:17)
[2019-11-16 18:02] LABS: Glucose, BF Source Thoracentesis Fluid; Glucose, Body Fluid <4 mg/dL; LDH, Body Fluid Source Thoracentesis Fluid; Total Protein, Body Fluid 2900 mg/dL
--- NOTE | 2019-11-16 18:42 | PN ---
PROGRESS NOTE DATE OF SERVICE: 11/16/2019. REASON FOR FOLLOWUP: 1. Acute influenza. 2. Pneumonia with empyema. INTERVAL HISTORY: Patient is currently afebrile, has been breathing comfortably. Denies having any chest pain. Cough decreased in intensity. No nausea, no vomiting. No abdominal pain. No diarrhea. PHYSICAL EXAMINATION: Blood pressure is 132/77 with a pulse of 80, temperature of 99.1. He is 97% on room air. General description is a middle-aged male lying in bed in no distress. Respiratory system: Unlabored breathing, decreased breath sounds in the bases. No wheeze. Heart S1, S2 regular rate and rhythm. ABDOMEN: Soft, no tenderness. LABS: No new labs have been obtained today. DIAGNOSTIC IMPRESSION AND PLAN: 1. Patient with acute influenza for which the patient is currently covered with Tamiflu to finish a five day course of therapy. 2. The patient with pneumonia, parapneumonic effusion, status post thoracocentesis with concern for loculated fluid for which CT surgery has been consulted. 3. We will keep the patient on Unasyn and follow up on the culture and adjust antibiotic further if needed. 4. Continue supportive care. MMODL / IJN: [id number] /
--- NOTE | 2019-11-16 19:56 | PN ---
PROGRESS NOTE CHIEF COMPLAINT: Bronchopneumonia with hemoptysis, influenza and uncontrolled diabetes. HISTORY OF PRESENT ILLNESS: This gentleman is slowly improving. His chest is improving. However, he has a left- sided pleural effusion and he is going today for thoracentesis. Blood sugars are still slightly elevated, but acceptable. PHYSICAL EXAMINATION: He still has extensive wheezing, rales and rhonchi bilaterally with dullness at both bases. Cardiac exam is normal. Abdomen is soft, nontender. IMPRESSION: 1. Bronchopneumonia. 2. Left pleural effusion. 3. Uncontrolled diabetes. PLAN: Thoracentesis today. Continue with updrafts, antibiotics and IV fluids along with management of his diabetes. MMODL / IJN: [id number] /
[2019-11-16 20:22] LABS: Appearance,BF Cloudy; Color,BF Yellow
[2019-11-16 20:23] LABS: Mononuclear WBC,Body Fluid 7 %; Nucleated Cells, Body Fluid 8750 /uL; Polynuclear WBC,Body Fluid 93 %; RBC, Body Fluid 1800 /uL
[2019-11-16 20:44] LABS: Glucose,Whole Blood 221 mg/dL (75-99)
[2019-11-16] MEDS: ATORVASTATIN 20 MG TAB PO SCH (21:01)
[2019-11-17] MEDS: AMPICILLIN-SULBACTAM 3 GM in SODIUM CHLORIDE 0.9% 100 ML IVPB SCH ×4 (05:46→23:10)
[2019-11-17 06:52] LABS: Glucose,Whole Blood 193 mg/dL (75-99)
[2019-11-17] MEDS: INSULIN ASPART (NovoLOG) 100 UNIT/ML VIAL SQ SCH ×4 (07:45→20:33)
[2019-11-17] MEDS: INSULIN NPH 300 UNIT/3 ML VIAL SQ SCH ×2 (07:45→17:14)
[2019-11-17] MEDS: IPRATROPIUM-ALBUTEROL 3 ML NEB INHALATION PRN ×3 (07:54→21:35)
[2019-11-17] MEDS: BUDESONIDE 0.5 MG/2 ML NEBU INHALATION SCH ×2 (07:54→21:35)
[2019-11-17] MEDS: OSELTAMIVIR 75 MG CAP PO SCH ×2 (08:09→22:03)
[2019-11-17] MEDS: PANTOPRAZOLE 40 MG TABLET PO SCH (08:09)
[2019-11-17] MEDS: HEPARIN SODIUM,PORCINE 5,000 UNIT/ML 1 ML VIAL SQ SCH ×2 (08:09→20:50)
[2019-11-17] MEDS: LISINOPRIL 20 MG TAB PO SCH (08:09)
[2019-11-17] MEDS: ASPIRIN 81 MG PO SCH (08:09)
--- NOTE | 2019-11-17 08:10 | XR ---
EXAMINATION TYPE: XR chest 1V portable DATE OF EXAM: 11/17/2019 COMPARISON: 11/16/2019 INDICATION: Left pleural effusion TECHNIQUE: Single frontal view of the chest is obtained. FINDINGS: The heart size is normal. The pulmonary vasculature is normal. There is small left pleural effusion somewhat diminished from comparison. Sternotomy wires are present from prior CABG. IMPRESSION: 1. Diminished left pleural effusion.
[2019-11-17 11:32] LABS: Glucose,Whole Blood 189 mg/dL (75-99)
--- NOTE | 2019-11-17 14:53 | P.GSCN ---
History of Present Illness Consult date: 11/17/19 Reason for Consult: Left pleural effusion Requesting physician: Asael Doshi History of present illness: This is a 54-year-old [place] male patient who currently is at [facility]. He has a past medical history significant for type 2 insulin-dependent diabetes mellitus, eye disorder and remote history of nicotine dependence quit over 20 years ago. The patient was transported from the [facility] to the emergency department here at [facility] due to complaints of fever, chills and productive cough. He reports he did have some episodes of nausea as well but denies any complaints of diarrhea, constipation, headache, dizziness or pain. He did test positive for influenza A and a chest x-ray on presentation to the emergency department showed a left lower pneumonia. The patient was subsequently admitted for further evaluation and treatment and on 11/14/2019 underwent a CTA of his chest. The chest CTA results demonstrated a left lower lobe infiltrate, pleural effusion and no evidence of pulmonary embolism. Due to the left pleural effusion and ultrasound of his chest was completed which showed a left pleural effusion pocket size measuring 9.0 cm. Yesterday 11/16/2019 a left-sided ultrasound-guided thoracentesis was completed by interventional radiology with approximately 50 mL of straw-colored turbid fluid drained. Status post the drainage of the left pleural fluid a consult was placed to Dr. Jim Hamilton from cardiothoracic surgery for further evaluation and treatment recommendations. Review of Systems A 14 point review of systems was completed was negative except as mentioned in the HPI. Past Medical History Past Medical History: Diabetes Mellitus, Eye Disorder, Pneumonia Additional Past Medical History / Comment(s): cataracts unable to see with his left eye and only able to see shapes peripherally in the right eye, no teeth on top and missing a few on the bottom. History of Any Multi-Drug Resistant Organisms: None Reported Past Surgical History: Appendectomy, Cardiac Valve Replacement, Orthopedic Surgery Additional Past Surgical History / Comment(s): appendix removed in 1991, heart valve replaced in 2013, and elbow surgery in 2014. Past Anesthesia/Blood Transfusion Reactions: No Reported Reaction Past Psychological History: No Psychological Hx Reported Smoking Status: Former smoker Past Alcohol Use History: None Reported Additional Past Alcohol Use History / Comment(s): States quit smoking 20-25 years ago and stopped drinking about 10 years ago. Past Drug Use History: None Reported - Past Family History Father History Unknown: Yes Mother History Unknown: Yes Medications and Allergies Home Medications Medication Instructions Recorded Confirmed Type Albuterol Nebulized [Ventolin 2.5 mg INHALATION RT-QID PRN 11/13/19 11/13/19 History Nebulized] Aspirin EC [Ecotrin Low Dose] 81 mg PO DAILY 11/13/19 11/13/19 History Atorvastatin [Lipitor] 20 mg PO HS 11/13/19 11/13/19 History Azithromycin [Zithromax Z-pack] See Taper PO DAILY 11/13/19 11/13/19 History Insulin NPH Human Isophane 15 unit SQ BID 11/13/19 11/13/19 History [humuLIN N] Insulin Regular [HumuLIN R] See Protocol SQ ACHS 11/13/19 11/13/19 History Lisinopril [Zestril] 5 mg PO DAILY 11/13/19 11/13/19 History Omeprazole 20 mg PO DAILY 11/13/19 11/13/19 History Allergies Allergy/AdvReac Type Severity Reaction Status Date / Time No Known Allergies Allergy Verified 11/13/19 12:07 Surgical - Exam Vital Signs Temp Pulse Resp BP Pulse Ox 101.3 F H 92 18 105/57 95 11/12/19 21:43 11/12/19 21:43 11/12/19 21:43 11/12/19 21:43 11/12/19 21:43 - General well developed, well nourished, no distress, no pain, obese - Eyes No scleral icterus - ENT no pharyngeal erythema or thrush. normal pinna, normal nares, normal mucosa, no hearing loss, no congestion - Neck Neck is supple, no lymphadenopathy. no masses, no bruits, trachea midline, no venous distension - Respiratory Lung sounds with coarse rhonchi throughout, diminished to his bilateral bases left greater than right. Respirations are symmetrical and nonlabored. Loose productive cough. - Cardiovascular Regular rhythm and rate. S1 and S2 present, negative for S3, gallop or murmur. No edema present. - Abdomen Abdomen is soft, nontender nondistended. Active bowel sounds present all 4 abdominal quadrants. No guarding or rigidity. No organomegaly appreciated. - Genitourinary Deferred - Rectum Deferred - Integumentary no rash, no growths, no abnormal pigmentation - Neurologic Awake, alert and oriented 3. - Psychiatric oriented to time, oriented to person, oriented to place, speech is normal, memory intact Results - Labs 11/13/19 18:58 11/13/19 18:58 Abnormal Lab Results - Last 24 Hours (Table) 11/16/19 11/16/19 11/17/19 Range/Units 17:04 20:40 06:50 POC Glucose (mg/dL) 196 H 221 H 193 H (75-99) mg/dL 11/17/19 Range/Units 11:28 POC Glucose (mg/dL) 189 H (75-99) mg/dL Microbiology - Last 24 Hours (Table) 11/16/19 11:25 Gram Stain - Preliminary Thoracic Fluid Body Fluid Culture - Preliminary 11/12/19 22:05 Blood Culture - Preliminary Blood No Growth after 96 hours 11/16/19 11:25 Fungal Culture - Preliminary Thoracic Fluid - Imaging Comments: Ultrasound of the chest results reviewed. Chest x-ray: report reviewed, image reviewed CT scan - chest: report reviewed, image reviewed Assessment and Plan Assessment: 1. Left-sided pleural effusion 2. Influenza A 3. Left lower lobe pneumonia 4. Diabetes mellitus type 2 5. Remote history of tobacco abuse Plan: The patient was seen and examined at his bedside on the fourth floor medical surgical unit. He has Investor officers present at his bedside. He is in no acute distress. His chart and diagnostics were reviewed. He was seen and examined by Dr. Basilio Wagner from cardiothoracic surgery. No surgical i ntervention is warranted at this time. We repeat the ultrasound of his chest and if able we have asked interventional radiology to place a left chest pigtail catheter. If the pigtail catheter is placed we will start alteplase pleural instillation tomorrow 11/18/2019. Encourage use of his incentive spirometry every hour while awake. Bronchodilators and pulmonary management per Dr. Doshi's recommendations. Antibiotic management per infectious disease. Medical/diabetes management per primary care service. Continue to monitor daily chest x-rays. More recommendations to follow based on patient's clinical course. Thank you Dr. Doshi for this consult and we look for to working with you in the care of this patient. Time with Patient: Greater than 30
--- NOTE | 2019-11-17 15:13 | US ---
EXAMINATION TYPE: US chest DATE OF EXAM: 11/17/2019 COMPARISON: CT 11/14/2019, ultrasound 11/15/2019, chest x-ray 11/17/2019 CLINICAL HISTORY: US Left chest pleural effusion.. Influenza A, left thoracentesis done yesterday, pr ocedure planning TECHNIQUE: Targeted ultrasound of the posterior lower Left EXAM MEASUREMENTS: Left Pleural Effusion pocket size: 13.4 cm - did not place jordan on patient due to extensive loculati ons seen within entire pocket. Left side NOT marked for possible thoracentesis outside the dept. Pulmonologists are able to review the images in the patient?s EMR. Limited ultrasound posterior left chest. Clear differentiation between possible loculations, effusion and lung not Identified. IMPRESSIONS: Multilocular appearance, difficult to state with certainty whether there is abnormal liliana g present. No evident sizable effusion. No suitable pocket identified for PICC catheter placement.
[2019-11-17 16:34] LABS: Glucose,Whole Blood 234 mg/dL (75-99)
--- NOTE | 2019-11-17 17:19 | PN ---
PROGRESS NOTE DATE OF SERVICE: 11/17/2019 Patient is a 54-year-old male who was seen lying in bed, is awake, alert. Continues to complain of difficulty breathing with cough. Patient is afebrile, hemodynamically stable, in no acute distress. PHYSICAL EXAMINATION: VITAL SIGNS: Temperature is 98.3, heart rate 88, respiratory rate 19, blood pressure 132/81, oxygen saturation 92% on room air. HEENT: Head is normocephalic, atraumatic. NECK: Neck is supple. Trachea is midline. LUNGS: Decreased breath sounds and end-expiratory wheeze. HEART: S1 and S2 are heard. Not tachycardic. ABDOMEN: Soft. Bowel sounds are positive. EXTREMITIES: No edema. NEUROLOGIC: The patient is awake and alert. LABS/IMAGING: No new labs to review. Fluid culture from thoracic fluid is pending. Ultrasound of the chest shows multi-loculated appearance; difficult to state with certainty whether there is abnormal lung present. No sizable effusion. No suitable pocket identified for PICC catheter placement. Chest x-ray this a.m. shows diminished left pleural effusion. IMPRESSION: 1. Left-sided empyema with loculated effusion likely, for which he may benefit from decortication. Thoracic Surgery is on consult, which is pending. 2. Diabetes mellitus. 3. Influenza A. PLAN: Continue current medications, which have been reviewed. Continue antibiotics per Infectious Disease. Continue bronchodilators and aerosolized steroids. Continue GI and DVT prophylaxis. We will continue to follow patient closely with you, making further changes as necessary. MMODL / IJN: [id number] /
[2019-11-17] MEDS: SODIUM CHLORIDE 0.9% 1,000 ML IV SCH (17:43)
[2019-11-17 18:11] LABS: African American GFR (CKD) >90 (>60 ml/min/1.73 sqM); Anion Gap 10 mmol/L; Blood Urea Nitrogen 8 mg/dL (9-20); Calcium 7.8 mg/dL (8.4-10.2); Carbon Dioxide 24 mmol/L (22-30); Chloride 101 mmol/L (98-107); Glucose 217 mg/dL (74-99); Non-African American GFR(CKD) >90 (>60 ml/min/1.73 sqM); Potassium 3.2 mmol/L (3.5-5.1); Sodium 135 mmol/L (137-145)
[2019-11-17 19:33] LABS: Basophils % (A) 0 %; Eosinophils % (A) 0 %; HCT 33.9 % (39.0-53.0); HGB 11.2 gm/dL (13.0-17.5); Lymphocytes # (A) 1.3 k/uL (1.0-4.8); Lymphocytes % (A) 12 %; MCH 31.1 pg (25.0-35.0); MCHC 32.9 g/dL (31.0-37.0); MCV 94.7 fL (80.0-100.0); Mean Platelet Volume 8.4; Monocytes % (A) 9 %; Neutrophils # (A) 8.3 k/uL (1.3-7.7); Neutrophils % (A) 77 %; Platelet Count 360 k/uL (150-450); RBC 3.58 m/uL (4.30-5.90); RDW 12.9 % (11.5-15.5); WBC 10.9 k/uL (3.8-10.6)
--- NOTE | 2019-11-17 19:44 | XR ---
EXAMINATION TYPE: XR abdomen 4 view DATE OF EXAM: 11/17/2019 7:31 PM CLINICAL HISTORY: Pain and distention TECHNIQUE: 4V COMPARISON: None. FINDINGS: There is consolidative opacity through much of the left lower lobe silhouetting the entire left hemidiaphragm. The right lung bases clear. Scattered gas is seen in mildly dilated small bowel loops. Gas and fecal material is seen in througho ut ascending and transverse and descending colon. There is no pneumoperitoneum or pneumatosis. No definite acute soft tissue or skeletal findings. IMPRESSION: 1. Abnormal bowel gas pattern, pattern suggests ileus at the present time; continued clinical survei llance and consideration of follow-up radiographs suggested. 2. Silhouetted left hemidiaphragm consistent with partial left lower lobe airlessness/ pleural effusi on.
[2019-11-17 20:26] LABS: Glucose,Whole Blood 130 mg/dL (75-99)
[2019-11-17] MEDS: ATORVASTATIN 20 MG TAB PO SCH (22:00)
--- NOTE | 2019-11-17 22:44 | CT ---
EXAMINATION TYPE: CT chest wo/w con DATE OF EXAM: 11/17/2019 COMPARISON: 11/14/2019 HISTORY: LT pleural effusion CT DLP: 926.9 mGycm Automated exposure control for dose reduction was used. CONTRAST: CT scan of the chest is performed with IV Contrast, patient injected with 100 mL of Isovue 300. FINDINGS: AIRWAYS, LUNGS, AND PLEURAL SPACES: The airways are unremarkable. The ill-defined left lower lobe pul monary consolidation with a 3 cm geographic zone of cavitation is redemonstrated, associated with con sistent with a clinical diagnosis of pneumonia. The left pleural effusion has increased from mild to [id number] in volume over the past 3 days, and appears mildly complex. MEDIASTINUM: While not a dedicated pulmonary CTA, there are no evident pulmonary arterial filling def ects to suggest pulmonary embolism. There are no acute aortic findings. There is mild cardiomegaly wi th panchamber enlargement and coronary calcifications, status post CABG. Pericardial space is negativ e. OTHER: No additional significant abnormality is seen. IMPRESSION: LEFT PLEURAL-PARENCHYMAL CHANGES REDEMONSTRATED DISCUSSED, WITH MILD INTERVAL INCREASE IN LEFT PLE URAL EFFUSION.
[2019-11-17 22:58] LABS: Glucose,Whole Blood 126 mg/dL (75-99)
[2019-11-17] MEDS: ACETAMINOPHEN TAB 325 MG TAB PO PRN (23:10)
--- NOTE | 2019-11-17 23:39 | PN ---
PROGRESS NOTE DATE OF SERVICE: REASON FOR FOLLOWUP: 1. Acute influenza. 2. Pneumonia with parapneumonic effusion. INTERVAL HISTORY: The patient did have a low-grade temperature of 100.6 today. The patient was breathing comfortably. Denies having any chest pain. Cough has decreased in intensity. No nausea, no vomiting. No abdominal pain. No diarrhea. PHYSICAL EXAMINATION: Blood pressure 135/61 with a pulse of 83, temperature 98.9. He is 91% on room air. General description is a middle-aged male lying in bed in no distress. RESPIRATORY SYSTEM: Unlabored breathing with decreased breath sounds at the base. No wheeze. HEART: S1, S2. Regular rate and rhythm. ABDOMEN: Soft. No tenderness. LAB: Hemoglobin 11.2, white count 10.9, BUN of 8, creatinine 0.82. DIAGNOSTIC IMPRESSION AND PLAN: 1. Patient admitted to hospital with acute influenza, for which the patient has completed a 5-day course of oral Tamiflu. 2. Patient with pneumonia and parapneumonic effusion, status post thoracentesis. While waiting for those cultures to finalize, keep the patient on Unasyn, adjusting antibiotic further based on the culture report. Continue with supportive care. MMODL / IJN: [id number] /
[2019-11-18] MEDS: AMPICILLIN-SULBACTAM 3 GM in SODIUM CHLORIDE 0.9% 100 ML IVPB SCH ×3 (06:03→19:43)
[2019-11-18 07:06] LABS: Glucose,Whole Blood 111 mg/dL (75-99)
[2019-11-18] MEDS: INSULIN ASPART (NovoLOG) 100 UNIT/ML VIAL SQ SCH ×4 (07:11→19:46)
[2019-11-18] MEDS: ASPIRIN 81 MG PO SCH (07:11)
[2019-11-18] MEDS: PANTOPRAZOLE 40 MG TABLET PO SCH (07:11)
[2019-11-18] MEDS: LISINOPRIL 20 MG TAB PO SCH (07:13)
[2019-11-18] MEDS: HEPARIN SODIUM,PORCINE 5,000 UNIT/ML 1 ML VIAL SQ SCH ×2 (07:13→19:46)
[2019-11-18] MEDS: INSULIN NPH 300 UNIT/3 ML VIAL SQ SCH ×2 (07:16→19:43)
--- NOTE | 2019-11-18 08:56 | XR ---
EXAMINATION TYPE: XR chest 1V portable DATE OF EXAM: 11/18/2019 HISTORY: Shortness of breath. COMPARISON: 11/17/2019 TECHNIQUE: Single view of the chest is submitted. FINDINGS: Demonstrated are scattered senescent parenchymal change. Persistent left perihilar and left basilar infiltrate. Underlying atelectasis and/or effusion also co nsidered. No interval change appreciated. The heart is stable. Hilar and mediastinal structures are within normal limits. Degenerative changes are seen of the dorsal spine. IMPRESSION: 1. Persistent left perihilar and left basilar infiltrate. Underlying atelectasis and/or effusion als o considered. No interval change appreciated.
[2019-11-18] MEDS: IPRATROPIUM-ALBUTEROL 3 ML NEB INHALATION PRN ×4 (09:05→19:57)
[2019-11-18] MEDS: BUDESONIDE 0.5 MG/2 ML NEBU INHALATION SCH ×2 (09:06→19:57)
[2019-11-18] MEDS ORDERED: BISACODYL 10 MG SUPP RECTAL STA (09:15)
[2019-11-18 10:21] LABS: Basophils % (A) 0 %; Eosinophils % (A) 0 %; HGB 10.9 gm/dL (13.0-17.5); Lymphocytes # (A) 1.9 k/uL (1.0-4.8); Lymphocytes % (A) 15 %; MCH 31.3 pg (25.0-35.0); Monocytes # (A) 0.9 k/uL (0-1.0); Monocytes % (A) 7 %; Neutrophils # (A) 9.4 k/uL (1.3-7.7); Neutrophils % (A) 75 %; Platelet Count 364 k/uL (150-450); RBC 3.47 m/uL (4.30-5.90); RDW 13.1 % (11.5-15.5); WBC 12.6 k/uL (3.8-10.6)
[2019-11-18 10:31] LABS: African American GFR (CKD) >90 (>60 ml/min/1.73 sqM); Anion Gap 13 mmol/L; Blood Urea Nitrogen 9 mg/dL (9-20); Carbon Dioxide 22 mmol/L (22-30); Chloride 103 mmol/L (98-107); Glucose 133 mg/dL (74-99); Non-African American GFR(CKD) >90 (>60 ml/min/1.73 sqM); Potassium 3.3 mmol/L (3.5-5.1); Sodium 138 mmol/L (137-145)
[2019-11-18 11:53] LABS: Glucose,Whole Blood 149 mg/dL (75-99)
[2019-11-18] MEDS: METOCLOPRAMIDE 5 MG/ML 2 ML VIAL IVP SCH ×2 (12:11→19:42)
--- NOTE | 2019-11-18 12:25 | P.PN ---
Subjective Progress Note Date: 11/18/19 Principal diagnosis: Left-sided pleural effusion, left lower lobe pneumonia, influenza A. Past medical history significant for diabetes mellitus type 2, eye disorder and a remote history of tobacco abuse. The patient is laying in bed on the fourth floor medical surgical unit. He is in no acute distress, although he is complaining of some abdominal discomfort and continues to complain of episodes of shortness of breath. He is awake and alert and remains hemodynamically stable. Oxygen saturations are 93% on 2 L nasal cannula. He is achieving 1250 mL on entrance incentive spirometry. His T-max temperature in the last 24 hours is 101.4F and he is on Unasyn for antibiotic coverage. Pleural fluid pathology showed acute pleuritis/empyema with numerous reactive mesothelial cells in a background of pus. Continues to deny any nausea or vomiting although continues to complain of abdominal bloating. An ultrasound of his chest was completed yesterday which showed mult ilocular appearance. For further evaluation a computed tomography scan of his chest was completed with contrast which demonstrated a left pleural effusion. Objective - Vital Signs Vital signs: Vital Signs Temp 99.1 F 11/18/19 03:12 Pulse 86 11/18/19 09:26 Resp 19 11/18/19 02:15 BP 142/72 11/18/19 02:15 Pulse Ox 93 L 11/18/19 02:15 Intake & Output 11/17/19 11/18/19 11/18/19 18:59 06:59 18:59 Intake Total 1040 Balance 1040 Intake: Intake, IV Titration 240 Amount Ampicillin-Sulbactam 3 gm 100 In Sodium Chloride 0.9% 100 ml @ 200 mls/hr IVPB Q6HR [facility] Rx#:[id number] Sodium Chloride 0.9% 1, 140 000 ml @ 20 mls/hr IV . Q24H [facility] Rx#:[id number] Oral 800 Other: Voiding Method Urinal Urinal Urinal # Voids 1 - Constitutional General appearance: Present: cooperative, no acute distress, obese - Respiratory Details: Lung sounds diminished to his bilateral bases with few scattered rhonchi throughout. Respirations are symmetrical and nonlabored. Achieving 1250 mL on his incentive spirometry. Oxygen saturation is 93% on 2 L nasal cannula. - Cardiovascular Details: Regular rhythm and rate. S1 and S2 present, negative for S3, gallop or murmur. - Gastrointestinal Gastrointestinal Comment(s): Abdomen is distended and and tender with touch. Hypoactive bowel sounds. - Integumentary Integumentary Comment(s): Skin is warm and dry. No clubbing or cyanosis is present. - Neurologic Neurologic Comment(s): Awake and alert. - Musculoskeletal Musculoskeletal: Present: generalized weakness, strength equal bilaterally - Psychiatric Psychiatric: Present: A&O x's 3, appropriate affect, intact judgment & insight - Allied health notes Allied health notes reviewed: nursing - Labs CBC & Chem 7: 11/18/19 09:47 11/18/19 09:47 Labs: Abnormal Lab Results - Last 24 Hours (Table) 11/17/19 11/17/19 11/17/19 Range/Units 16:30 17:26 17:26 WBC 10.9 H (3.8-10.6) k/uL RBC 3.58 L (4.30-5.90) m/uL Hgb 11.2 L (13.0-17.5) gm/dL Hct 33.9 L (39.0-53.0) % Neutrophils # 8.3 H (1.3-7.7) k/uL Sodium 135 L (137-145) mmol/L Potassium 3.2 L (3.5-5.1) mmol/L BUN 8 L (9-20) mg/dL Glucose 217 H (74-99) mg/dL POC Glucose (mg/dL) 234 H (75-99) mg/dL Calcium 7.8 L (8.4-10.2) mg/dL 11/17/19 11/17/19 11/18/19 Range/Units 20:24 22:57 07:04 WBC (3.8-10.6) k/uL RBC (4.30-5.90) m/uL Hgb (13.0-17.5) gm/dL Hct (39.0-53.0) % Neutrophils # (1.3-7.7) k/uL Sodium (137-145) mmol/L Potassium (3.5-5.1) mmol/L BUN (9-20) mg/dL Glucose (74-99) mg/dL POC Glucose (mg/dL) 130 H 126 H 111 H (75-99) mg/dL Calcium (8.4-10.2) mg/dL 11/18/19 11/18/19 11/18/19 Range/Units 09:47 09:47 11:51 WBC 12.6 H (3.8-10.6) k/uL RBC 3.47 L (4.30-5.90) m/uL Hgb 10.9 L (13.0-17.5) gm/dL Hct 33.0 L (39.0-53.0) % Neutrophils # 9.4 H (1.3-7.7) k/uL Sodium (137-145) mmol/L Potassium 3.3 L (3.5-5.1) mmol/L BUN (9-20) mg/dL Glucose 133 H (74-99) mg/dL POC Glucose (mg/dL) 149 H (75-99) mg/dL Calcium 8.0 L (8.4-10.2) mg/dL Microbiology - Last 24 Hours (Table) 11/12/19 22:05 Blood Culture - Preliminary Blood No Growth after 120 hours 11/16/19 11:25 Gram Stain - Preliminary Thoracic Fluid Body Fluid Culture - Preliminary - Imaging and Cardiology Chest x-ray: report reviewed, image reviewed CT scan - chest: report reviewed, image reviewed Assessment and Plan Assessment: 1. Left-sided pleural effusion 2. Influenza A 3. Left lower lobe pneumonia 4. Diabetes mellitus type 2 5. Remote history of tobacco abuse Plan: 1. We have consulted interventional radiology for left chest pigtail catheter placement. Once the pigtail catheter has been placed we will initiate alteplase pleural instillation daily. 2. Continue to encourage use of his incentive spirometry every hour while awake. 3. Encourage continued smoking cessation. 4. Bronchodilators per pulmonary medicine management. 5. Antibiotic management per infectious disease. 6. Medical management and other comorbidities per primary care service. 7. More recommendations to follow based on patient's clinical course. Time with Patient: Greater than 30
[2019-11-18] MEDS ORDERED: ONDANSETRON 4 MG/2 ML VIAL IVP PRN (12:44)
--- NOTE | 2019-11-18 12:44 | P.GSCN ---
<Hannah Daniel - Last Filed: 11/18/19 12:40> History of Present Illness Consult date: 11/18/19 Reason for Consult: abdominal pain Requesting physician: Harinder Murray History of present illness: CHIEF COMPLAINT: Abdominal pain HISTORY OF PRESENT ILLNESS: 54-year-old male who was admitted to the hospital secondary to influenza A, pneumonia, and left-sided pleural effusion. Patient began having abdominal pain yesterday and consult was placed to general surgery for evaluation. Patient examined this morning at the bedside. He reports generalized abdominal pain. Denies passing flatus or having a bowel movement today. He reports having a normal bowel movement yesterday. He reports some mild intermittent nausea. Denies emesis. He reports abdominal bloating and distention. PAST MEDICAL HISTORY: See list. PAST SURGICAL HISTORY: See list. SOCIAL HISTORY: No illicit drug use. REVIEW OF SYSTEMS: CONSTITUTIONAL: Reports fever. HEENT: Denies blurred vision, vision changes, or eye pain. Denies hemoptysis CARDIOVASCULAR: Denies chest pain or pressure. RESPIRATORY: Reports cough. GASTROINTESTINAL: Refer to HPI for pertinent findings HEMATOLOGIC: Denies bleeding disorders. GENITOURINARY: Denies any blood in urine. SKIN: Denies pruitis. Denies rash. PHYSICAL EXAM: VITAL SIGNS: Reviewed. GENERAL: Well-developed in no acute distress. HEENT: No sclera icterus. Extraocular movements grossly intact. Moist buccal mucosa. Head is atraumatic, normocephalic. ABDOMEN: Soft. Distended. Mild diffuse tenderness. Hypoactive bowel sounds. NEUROLOGIC: Alert and oriented. Cranial nerves II through XII grossly intact. LABORATORY DATA: WBC 12.6. Hemoglobin 10.9. Platelet count 364. IMAGING: -CT chest was completed to evaluate pleural effusion. There was no evidence of bowel distention or acute GI abnormality from the portion scanned. -Abdominal x-ray abnormal bowel gas pattern. Pattern suggests ileus mildly dilated small bowel loops. Gas and fecal material seen throughout ascending and transverse and descending colon. ASSESSMENT: 1. Abdominal pain 2. Ileus PLAN: NPO except ice chips Dulcolax daily Reglan 10mg IV Q6 Zofran PRN for nausea Will hold off on abdominal CT at this time due to recent CT chest x 2 Nurse practitioner note has been reviewed by physician. Signing provider agrees with the documented findings, assessment, and plan of care. Past Medical History Past Medical History: Diabetes Mellitus, Eye Disorder, Pneumonia Additional Past Medical History / Comment(s): cataracts unable to see with his left eye and only able to see shapes peripherally in the right eye, no teeth on top and missing a few on the bottom. History of Any Multi-Drug Resistant Organisms: None Reported Past Surgical History: Appendectomy, Cardiac Valve Replacement, Orthopedic Surgery Additional Past Surgical History / Comment(s): appendix removed in 1991, heart valve replaced in 2013, and elbow surgery in 2014. Past Anesthesia/Blood Transfusion Reactions: No Reported Reaction Past Psychological History: No Psychological Hx Reported Smoking Status: Former smoker Past Alcohol Use History: None Reported Additional Past Alcohol Use History / Comment(s): States quit smoking 20-25 years ago and stopped drinking about 10 years ago. Past Drug Use History: None Reported - Past Family History Father History Unknown: Yes Mother History Unknown: Yes Medications and Allergies Home Medications Medication Instructions Recorded Confirmed Type Albuterol Nebulized [Ventolin 2.5 mg INHALATION RT-QID PRN 11/13/19 11/13/19 History Nebulized] Aspirin EC [Ecotrin Low Dose] 81 mg PO DAILY 11/13/19 11/13/19 History Atorvastatin [Lipitor] 20 mg PO HS 11/13/19 11/13/19 History Azithromycin [Zithromax Z-pack] See Taper PO DAILY 11/13/19 11/13/19 History Insulin NPH Human Isophane 15 unit SQ BID 11/13/19 11/13/19 History [humuLIN N] Insulin Regular [HumuLIN R] See Protocol SQ ACHS 11/13/19 11/13/19 History Lisinopril [Zestril] 5 mg PO DAILY 11/13/19 11/13/19 History Omeprazole 20 mg PO DAILY 11/13/19 11/13/19 History Allergies Allergy/AdvReac Type Severity Reaction Status Date / Time No Known Allergies Allergy Verified 11/13/19 12:07 Surgical - Exam Vital Signs Temp Pulse Resp BP Pulse Ox 101.3 F H 92 18 105/57 95 11/12/19 21:43 11/12/19 21:43 11/12/19 21:43 11/12/19 21:43 11/12/19 21:43 Results - Labs 11/18/19 09:47 11/18/19 09:47 Abnormal Lab Results - Last 24 Hours (Table) 11/17/19 11/17/19 11/17/19 Range/Units 16:30 17:26 17:26 WBC 10.9 H (3.8-10.6) k/uL RBC 3.58 L (4.30-5.90) m/uL Hgb 11.2 L (13.0-17.5) gm/dL Hct 33.9 L (39.0-53.0) % Neutrophils # 8.3 H (1.3-7.7) k/uL Sodium 135 L (137-145) mmol/L Potassium 3.2 L (3.5-5.1) mmol/L BUN 8 L (9-20) mg/dL Glucose 217 H (74-99) mg/dL POC Glucose (mg/dL) 234 H (75-99) mg/dL Calcium 7.8 L (8.4-10.2) mg/dL 11/17/19 11/17/19 11/18/19 Range/Units 20:24 22:57 07:04 WBC (3.8-10.6) k/uL RBC (4.30-5.90) m/uL Hgb (13.0-17.5) gm/dL Hct (39.0-53.0) % Neutrophils # (1.3-7.7) k/uL Sodium (137-145) mmol/L Potassium (3.5-5.1) mmol/L BUN (9-20) mg/dL Glucose (74-99) mg/dL POC Glucose (mg/dL) 130 H 126 H 111 H (75-99) mg/dL Calcium (8.4-10.2) mg/dL 11/18/19 11/18/19 11/18/19 Range/Units 09:47 09:47 11:51 WBC 12.6 H (3.8-10.6) k/uL RBC 3.47 L (4.30-5.90) m/uL Hgb 10.9 L (13.0-17.5) gm/dL Hct 33.0 L (39.0-53.0) % Neutrophils # 9.4 H (1.3-7.7) k/uL Sodium (137-145) mmol/L Potassium 3.3 L (3.5-5.1) mmol/L BUN (9-20) mg/dL Glucose 133 H (74-99) mg/dL POC Glucose (mg/dL) 149 H (75-99) mg/dL Calcium 8.0 L (8.4-10.2) mg/dL Microbiology - Last 24 Hours (Table) 11/12/19 22:05 Blood Culture - Preliminary Blood No Growth after 120 hours 11/16/19 11:25 Gram Stain - Preliminary Thoracic Fluid Body Fluid Culture - Preliminary Diabetes panel 11/17/19 11/18/19 Range/Units 17:26 09:47 Sodium 135 L 138 (137-145) mmol/L Potassium 3.2 L 3.3 L (3.5-5.1) mmol/L Chloride 101 103 (98-107) mmol/L Carbon Dioxide 24 22 (22-30) mmol/L BUN 8 L 9 (9-20) mg/dL Creatinine 0.82 0.81 (0.66-1.25) mg/dL Glucose 217 H 133 H (74-99) mg/dL Calcium 7.8 L 8.0 L (8.4-10.2) mg/dL Calcium panel 11/17/19 11/18/19 Range/Units 17:26 09:47 Calcium 7.8 L 8.0 L (8.4-10.2) mg/dL Pituitary panel 11/17/19 11/18/19 Range/Units 17:26 09:47 Sodium 135 L 138 (137-145) mmol/L Potassium 3.2 L 3.3 L (3.5-5.1) mmol/L Chloride 101 103 (98-107) mmol/L Carbon Dioxide 24 22 (22-30) mmol/L BUN 8 L 9 (9-20) mg/dL Creatinine 0.82 0.81 (0.66-1.25) mg/dL Glucose 217 H 133 H (74-99) mg/dL Calcium 7.8 L 8.0 L (8.4-10.2) mg/dL Adrenal panel 11/17/19 11/18/19 Range/Units 17:26 09:47 Sodium 135 L 138 (137-145) mmol/L Potassium 3.2 L 3.3 L (3.5-5.1) mmol/L Chloride 101 103 (98-107) mmol/L Carbon Dioxide 24 22 (22-30) mmol/L BUN 8 L 9 (9-20) mg/dL Creatinine 0.82 0.81 (0.66-1.25) mg/dL Glucose 217 H 133 H (74-99) mg/dL Calcium 7.8 L 8.0 L (8.4-10.2) mg/dL <Héctor Chen - Last Filed: 11/18/19 13:21> History of Present Illness History of present illness: As above. Patient with abdominal bloating, vague diffuse abdominal discomfort, diminished appetite. On exam the patient is distended with mild tenderness diffusely and is tympanic. Suspect ileus. CAT scan chest from last night reviewed. CAT scan does demonstrate fairly nicely the upper abdomen with no evidence of significant bowel distention, gastric distention, or pneumoperitoneum. Agree with Reglan. Keep nothing by mouth. Suspect ileus related to the patient's other medical issues. Check magnesium and phosphorus levels. We'll reevaluate tomorrow. Surgical - Exam Vital Signs Temp Pulse Resp BP Pulse Ox 101.3 F H 92 18 105/57 95 11/12/19 21:43 11/12/19 21:43 11/12/19 21:43 11/12/19 21:43 11/12/19 21:43 Results - Labs 11/18/19 09:47 11/18/19 09:47 Abnormal Lab Results - Last 24 Hours (Table) 11/17/19 11/17/19 11/17/19 Range/Units 16:30 17:26 17:26 WBC 10.9 H (3.8-10.6) k/uL RBC 3.58 L (4.30-5.90) m/uL Hgb 11.2 L (13.0-17.5) gm/dL Hct 33.9 L (39.0-53.0) % Neutrophils # 8.3 H (1.3-7.7) k/uL Sodium 135 L (137-145) mmol/L Potassium 3.2 L (3.5-5.1) mmol/L BUN 8 L (9-20) mg/dL Glucose 217 H (74-99) mg/dL POC Glucose (mg/dL) 234 H (75-99) mg/dL Calcium 7.8 L (8.4-10.2) mg/dL 11/17/19 11/17/19 11/18/19 Range/Units 20:24 22:57 07:04 WBC (3.8-10.6) k/uL RBC (4.30-5.90) m/uL Hgb (13.0-17.5) gm/dL Hct (39.0-53.0) % Neutrophils # (1.3-7.7) k/uL Sodium (137-145) mmol/L Potassium (3.5-5.1) mmol/L BUN (9-20) mg/dL Glucose (74-99) mg/dL POC Glucose (mg/dL) 130 H 126 H 111 H (75-99) mg/dL Calcium (8.4-10.2) mg/dL 11/18/19 11/18/19 11/18/19 Range/Units 09:47 09:47 11:51 WBC 12.6 H (3.8-10.6) k/uL RBC 3.47 L (4.30-5.90) m/uL Hgb 10.9 L (13.0-17.5) gm/dL Hct 33.0 L (39.0-53.0) % Neutrophils # 9.4 H (1.3-7.7) k/uL Sodium (137-145) mmol/L Potassium 3.3 L (3.5-5.1) mmol/L BUN (9-20) mg/dL Glucose 133 H (74-99) mg/dL POC Glucose (mg/dL) 149 H (75-99) mg/dL Calcium 8.0 L (8.4-10.2) mg/dL Microbiology - Last 24 Hours (Table) 11/12/19 22:05 Blood Culture - Preliminary Blood No Growth after 120 hours 11/16/19 11:25 Gram Stain - Preliminary Thoracic Fluid Body Fluid Culture - Preliminary Diabetes panel 11/17/19 11/18/19 Range/Units 17:26 09:47 Sodium 135 L 138 (137-145) mmol/L Potassium 3.2 L 3.3 L (3.5-5.1) mmol/L Chloride 101 103 (98-107) mmol/L Carbon Dioxide 24 22 (22-30) mmol/L BUN 8 L 9 (9-20) mg/dL Creatinine 0.82 0.81 (0.66-1.25) mg/dL Glucose 217 H 133 H (74-99) mg/dL Calcium 7.8 L 8.0 L (8.4-10.2) mg/dL Calcium panel 11/17/19 11/18/19 Range/Units 17:26 09:47 Calcium 7.8 L 8.0 L (8.4-10.2) mg/dL Pituitary panel 11/17/19 11/18/19 Range/Units 17:26 09:47 Sodium 135 L 138 (137-145) mmol/L Potassium 3.2 L 3.3 L (3.5-5.1) mmol/L Chloride 101 103 (98-107) mmol/L Carbon Dioxide 24 22 (22-30) mmol/L BUN 8 L 9 (9-20) mg/dL Creatinine 0.82 0.81 (0.66-1.25) mg/dL Glucose 217 H 133 H (74-99) mg/dL Calcium 7.8 L 8.0 L (8.4-10.2) mg/dL Adrenal panel 11/17/19 11/18/19 Range/Units 17:26 09:47 Sodium 135 L 138 (137-145) mmol/L Potassium 3.2 L 3.3 L (3.5-5.1) mmol/L Chloride 101 103 (98-107) mmol/L Carbon Dioxide 24 22 (22-30) mmol/L BUN 8 L 9 (9-20) mg/dL Creatinine 0.82 0.81 (0.66-1.25) mg/dL Glucose 217 H 133 H (74-99) mg/dL Calcium 7.8 L 8.0 L (8.4-10.2) mg/dL
[2019-11-18 13:28] VITALS: BMI 25.3
[2019-11-18] MEDS: ACETAMINOPHEN TAB 325 MG TAB PO PRN (15:13)
--- NOTE | 2019-11-18 15:51 | XR ---
EXAMINATION TYPE: XR chest 1V portable DATE OF EXAM: 11/18/2019 HISTORY: Shortness of breath. COMPARISON: November 18, 2019 TECHNIQUE: Single view of the chest is submitted. FINDINGS: Demonstrated are scattered senescent parenchymal change. Left basilar pleural catheter is in place. No evidence for pneumothorax. Moderate pleural parenchymal opacity left mid and left lower lung zones unchanged. Right lung is clear. The heart is stable. Hilar and mediastinal structures are within normal limits. Degenerative changes are seen of the dorsal spine. IMPRESSION: 1. Left basilar pleural noted. Overall no change in the appearance of the chest. No evidence for pne umothorax.
--- NOTE | 2019-11-18 15:52 | US ---
EXAMINATION TYPE: US guided chest tube insertion DATE OF EXAM: 11/18/2019 COMPARISON: CT chest 11/17/2019 HISTORY: Left Pleural effusion. FINDINGS: Maximal barrier technique was utilized. Hand hygiene obtained with soap and water. The ski n overlying a suitable pocket of fluid was localized in the posterior left lower chest and the overly ing skin prepped and draped. Lidocaine was used for local anesthesia. Ultrasound was used with steri le technique. A 21-gauge needle was advanced into the pleural fluid collection using ultrasound guid ance and straw-colored fluid returned in the hub of the needle, 0.018 inch wire was advanced. Transit ional dilator advanced over the wire and the wire was upsized, the tract was dilated, an 8.5 [place] p igtail catheter advanced over the wire into the pleural fluid collection and fluid returned in the hu b of the catheter. Hemostasis achieved, post procedure chest x-rays pending. There is no immediate co mplication. The patient maintained in stable condition without complication. IMPRESSION: STATUS POST ULTRASOUND GUIDED PLEURAL DRAIN CATHETER PLACEMENT, POST PROCEDURE CHEST X-RA Y PENDING. THIS PROCEDURE WAS PERFORMED BY THE UNDERSIGNED.
[2019-11-18 17:15] LABS: Glucose,Whole Blood 178 mg/dL (75-99)
--- NOTE | 2019-11-18 18:25 | PN ---
PROGRESS NOTE DATE OF SERVICE: 11/18/2019 REASON FOR FOLLOWUP: 1. Acute influenza. 2. Empyema. INTERVAL HISTORY: The patient did spike a fever this morning of 101.4. The patient is complaining of shortness of breath and cough abdominal pain, nausea but no vomiting and no diarrhea. PHYSICAL EXAMINATION: Blood pressure is 142/72 with a pulse of 85, temperature of 101.4. He is 93% on room air. General description is a middle-aged male lying in bed in no distress. RESPIRATORY SYSTEM: Unlabored breathing with decreased breath sounds at the base. No wheeze. HEART: S1, S2. Regular rate and rhythm. ABDOMEN: Soft. Mildly distended. No guarding or rigidity. LABS: Hemoglobin is 10.1, white count 12.6, creatinine 0.81. The pleural fluid cultures are so far pending. DIAGNOSTIC IMPRESSION AND PLAN: 1. Patient with acute influenza that has been adequately treated. 2. Patient with pneumonia with a concern for empyema. Scheduled for the chest tube placement today per Interventional Radiology. In view of the new fever, blood cultures should have been repeated; however, . Will repeat now and add vancomycin and monitor his clinical course closely. MMODL / IJN: [id number] /
--- NOTE | 2019-11-18 19:25 | PN ---
PROGRESS NOTE . CHIEF COMPLAINT: Pneumonitis and left pleural effusion. HISTORY OF PRESENT ILLNESS: This gentleman is doing fairly well. He still has quite a bit of lung congestion and he is short of breath. Attempts at thoracentesis were not successful in that the fluid in the left lung cavity was thick enough they would not flow. There was talk of placement of a chest tube. PHYSICAL EXAMINATION: He has bilateral rales and rhonchi with decreased breath sounds at both bases and particularly on the left. Cardiac exam is normal. IMPRESSION: 1. Bilateral bronchial pneumonia. 2. Left pleural effusion or empyema. PLAN: Continue with updrafts, IV fluids and fluids and antibiotics and wait for whether not there will be any further any intervention in the left chest. MMODL / IJN: [id number] /
--- NOTE | 2019-11-18 19:34 | PN ---
PROGRESS NOTE CHIEF COMPLAINT: Pneumonitis. HISTORY OF PRESENT ILLNESS: This gentleman's is just about the same. Nothing further has been done with his left- sided infusion empyema. PHYSICAL EXAMINATION: Chest remains congested with no wheezing, rales and rhonchi throughout. Cardiac exam is normal. Abdomen is soft, nontender. IMPRESSION: 1. Pneumonitis with left pleural effusion or empyema. Plan remove telemetry. 2. Continue with the treatment with updrafts, fluids and antibiotics. MMODL / IJN: [id number] /
[2019-11-18] MEDS: SODIUM CHLORIDE 0.9% 1,000 ML IV SCH (19:44)
[2019-11-18] MEDS: ATORVASTATIN 20 MG TAB PO SCH (19:46)
[2019-11-18] MEDS: IBUPROFEN 400 MG TAB PO PRN (19:57)
--- NOTE | 2019-11-18 20:54 | PN ---
PROGRESS NOTE DATE OF SERVICE: 11/18/2019 This patient has been hemodynamically stable. He has less pain in his chest. He has a pigtail catheter placed in his chest on the left at this time which is draining thick yellowish fluid. His blood pressure is 144/72, respiratory rate of 18, pulse rate of 91. Oxygen saturation on 2 L by nasal cannula is 95%. HEENT is unremarkable. Chest reveals decreased breath sounds on the left with a pigtail catheter in place. Cardiovascular system is in S1, S2. Abdomen is soft. There is no pedal edema. Microbiological cultures are showing no growth. White count is 12.6 today, hemoglobin of 10.9. IMPRESSION AT THIS TIME: 1. Left-sided empyema. 2. Pneumonia. 3. Diabetes mellitus. Continue Unasyn. GI and DVT prophylaxis. Insulin. May benefit from decortication down the line. Continue chest tube drainage of the left empyema. MMODL / IJN: [id number] /
[2019-11-18 21:02] LABS: Glucose,Whole Blood 200 mg/dL (75-99)
[2019-11-19] MEDS: METOCLOPRAMIDE 5 MG/ML 2 ML VIAL IVP SCH ×4 (01:36→17:19)
[2019-11-19] MEDS: AMPICILLIN-SULBACTAM 3 GM in SODIUM CHLORIDE 0.9% 100 ML IVPB SCH ×4 (01:37→17:18)
[2019-11-19] MEDS: guaiFENesin 600 MG TABLET.ER PO PRN (01:42)
[2019-11-19] MEDS: IBUPROFEN 400 MG TAB PO PRN ×2 (01:42→07:45)
--- NOTE | 2019-11-19 07:04 | XR ---
EXAMINATION TYPE: XR chest 1V portable DATE OF EXAM: 11/19/2019 HISTORY: Left pleural effusion. REFERENCE: Previous study dated 11/18/2019. FINDINGS: There has been a midline sternotomy. There is left basilar airspace disease. There is a lef t effusion. Heart size is obscured. IMPRESSION: NO SIGNIFICANT INTERVAL CHANGE IN THE APPEARANCE OF THE CHEST.
[2019-11-19] MEDS ORDERED: ALTEPLASE 10 MG in SODIUM CHLORIDE 0.9% 100 ML IRRIGATION ONE (07:18)
[2019-11-19 07:31] LABS: Glucose,Whole Blood 111 mg/dL (75-99)
[2019-11-19 07:34] LABS: Magnesium 2.1 mg/dL (1.6-2.3); Phosphorus 3.5 mg/dL (2.5-4.5)
[2019-11-19] MEDS: INSULIN ASPART (NovoLOG) 100 UNIT/ML VIAL SQ SCH ×4 (07:37→21:06)
[2019-11-19] MEDS: LISINOPRIL 20 MG TAB PO SCH (07:46)
[2019-11-19] MEDS: ASPIRIN 81 MG PO SCH (07:46)
[2019-11-19] MEDS: PANTOPRAZOLE 40 MG TABLET PO SCH (07:46)
[2019-11-19] MEDS: HEPARIN SODIUM,PORCINE 5,000 UNIT/ML 1 ML VIAL SQ SCH ×2 (07:46→21:06)
[2019-11-19] MEDS: BISACODYL 10 MG SUPP RECTAL SCH (07:47)
[2019-11-19] MEDS: BUDESONIDE 0.5 MG/2 ML NEBU INHALATION SCH ×2 (08:27→19:59)
[2019-11-19] MEDS: IPRATROPIUM-ALBUTEROL 3 ML NEB INHALATION PRN ×4 (08:27→19:59)
[2019-11-19] MEDS: INSULIN NPH 300 UNIT/3 ML VIAL SQ SCH ×2 (09:17→17:18)
[2019-11-19] MEDS: ACETAMINOPHEN TAB 325 MG TAB PO PRN (09:46)
--- NOTE | 2019-11-19 11:57 | P.PN ---
Subjective Progress Note Date: 11/19/19 Principal diagnosis: Ileus Patient feels better today. He does have an appetite now. He is requesting solid foods. T-max 99.4. He is passing flatus. No bowel movement. Objective - Vital Signs Vital signs: Vital Signs Temp 97.7 F 11/19/19 07:43 Pulse 80 11/19/19 08:41 Resp 16 11/19/19 07:43 BP 150/76 11/19/19 07:43 Pulse Ox 95 11/19/19 07:43 Intake & Output 11/18/19 11/19/19 11/19/19 18:59 06:59 18:59 Output Total 1350 250 Balance -1350 -250 Weight 69 kg Output: Chest Tube Drainage 250 Chest Tube Left Posterior 250 Chest Urine 1350 Other: Voiding Method Urinal Urinal Urinal # Voids 400 - Exam Abdomen: Soft, mild distention certainly less than yesterday, minimal tenderness - Labs CBC & Chem 7: 11/18/19 09:47 11/18/19 09:47 Labs: Abnormal Lab Results - Last 24 Hours (Table) 11/18/19 11/18/19 11/19/19 Range/Units 17:13 21:00 07:26 POC Glucose (mg/dL) 178 H 200 H 111 H (75-99) mg/dL Microbiology - Last 24 Hours (Table) 11/16/19 11:25 Gram Stain - Preliminary Thoracic Fluid Body Fluid Culture - Preliminary 11/12/19 22:05 Blood Culture - Final Blood No Growth after 144 hours Assessment and Plan (1) Ileus Narrative/Plan: Will begin diet at this time. Continue ambulation. Continue antibiotics. Current Visit: Yes Status: Acute Code(s): K56.7 - ILEUS, UNSPECIFIED SNOMED Code(s): 876032217
[2019-11-19 12:12] LABS: Glucose,Whole Blood 159 mg/dL (75-99)
--- NOTE | 2019-11-19 12:14 | P.PN ---
Subjective Progress Note Date: 11/19/19 Principal diagnosis: Left-sided pleural effusion, left lower lobe pneumonia, influenza A. Past medical history significant for diabetes mellitus type 2, eye disorder and a remote history of tobacco abuse. POD #1 placement of left chest pigtail catheter placed by interventional radiology. The patient is laying in bed on the fourth floor medical surgical unit. He is in no acute distress. He reports he feels like he is making some slight improvement today with his breathing. He denies any complaints of pain or shortness of breath at this time. Still is complaining of some slight abdominal distention and discomfort. He reports he has not had a bowel movement in the la st couple of days. He is a left chest pigtail catheter in place which was placed by interventional radiology yesterday draining thin serous drainage. No air leak is present. The pigtail catheter remains to low continuous wall suction -20 cm H2O. 140 mL output since the tube was inserted yesterday. T-max temperature in the last 24 hours was 102.1F. Objective - Vital Signs Vital signs: Vital Signs Temp 97.7 F 11/19/19 07:43 Pulse 80 11/19/19 08:41 Resp 16 11/19/19 07:43 BP 150/76 11/19/19 07:43 Pulse Ox 95 11/19/19 07:43 Intake & Output 11/18/19 11/19/19 11/19/19 18:59 06:59 18:59 Output Total 1350 250 Balance -1350 -250 Weight 69 kg Output: Chest Tube Drainage 250 Chest Tube Left Posterior 250 Chest Urine 1350 Other: Voiding Method Urinal Urinal Urinal # Voids 400 - Constitutional General appearance: Present: cooperative, no acute distress, obese - Respiratory Details: Lung sounds with few scattered expiratory wheezes throughout, diminished to his bilateral bases left greater than right. Oxygen saturation 96% on 2 L nasal cannula. Left chest pigtail catheter in place to low continuous wall suction - 20 cm H2O. No air leak is present. Draining thin serous drainage. - Cardiovascular Details: Regular rhythm and rate. S1 and S2 present, negative for S3, gallop or murmur. No edema present. - Gastrointestinal Gastrointestinal Comment(s): Abdomen is soft, slightly distended and some scattered tenderness throughout his abdomen. Hypoactive bowel sounds present all 4 abdominal quadrants. Passing flatus. - Genitourinary Genitourinary Comment(s): Voiding clear breonna urine. - Integumentary Integumentary Comment(s): Skin is warm and dry. No clubbing or cyanosis is present. No rash or abnormal pigmentation is present. - Neurologic Neurologic: Present: CNII-XII intact - Musculoskeletal Musculoskeletal: Present: gait normal, generalized weakness, strength equal bilaterally - Psychiatric Psychiatric: Present: A&O x's 3, appropriate affect, intact judgment & insight - Allied health notes Allied health notes reviewed: nursing - Labs CBC & Chem 7: 11/18/19 09:47 11/18/19 09:47 Labs: Abnormal Lab Results - Last 24 Hours (Table) 11/18/19 11/18/19 11/19/19 Range/Units 17:13 21:00 07:26 POC Glucose (mg/dL) 178 H 200 H 111 H (75-99) mg/dL Microbiology - Last 24 Hours (Table) 11/16/19 11:25 Gram Stain - Preliminary Thoracic Fluid Body Fluid Culture - Preliminary 11/12/19 22:05 Blood Culture - Final Blood No Growth after 144 hours - Imaging and Cardiology Chest x-ray: report reviewed, image reviewed Assessment and Plan Assessment: 1. Left-sided pleural effusion, status post placement of left chest pigtail catheter performed by interventional radiology 2. Influenza A 3. Left lower lobe pneumonia 4. Diabetes mellitus type 2 5. Remote history of tobacco abuse Plan: 1. Keep left chest pigtail catheter in place to low continuous wall suction -20 cm H2O. We will instill alteplase 10 mg/100 mL normal saline pleural instillation to his pigtail catheter today. 2. Continue to encourage use of his incentive spirometry every hour while awake. 3. Encourage continued smoking cessation. 4. Bronchodilators per pulmonary medicine management. 5. Antibiotic management per infectious disease. 6. Medical management and other comorbidities per primary care service. 7. Continue to monitor daily chest x-rays. 8. More recommendations to follow based on patient's clinical course. Time with Patient: Greater than 30
--- NOTE | 2019-11-19 14:25 | PN ---
PROGRESS NOTE DATE OF SERVICE: 11/19/2019 This patient has been hemodynamically stable. He has less pain in his left chest. On physical examination, his respiratory rate is 16, pulse rate of 71, temperature 97.7, blood pressure 150/76. Oxygen saturation on room air is 95%. HEENT is unremarkable. Chest reveals decreased breath sounds on the left with a chest tube in place. Cardiovascular system is in S1, S2. No S3, no S4. Abdomen is soft. There is no pedal edema. Microbiological cultures are showing no growth. IMPRESSION AT THIS TIME: 1. Left-sided empyema. 2. Diabetes mellitus. 3. Pneumonia. At this point in time, continue antibiotics, chest tube drainage. He may benefit from formal decortication. His prognosis is fair. MMODL / IJN: [id number] /
--- NOTE | 2019-11-19 15:16 | PN ---
PROGRESS NOTE CHIEF COMPLAINT: Pneumonitis with left empyema. HISTORY OF PRESENT ILLNESS: This gentleman had a catheter placed in the left chest yesterday to drain his empyema. He states he is feeling a little bit better. PHYSICAL EXAMINATION: He still has decreased breath sounds with rales and rhonchi bilaterally. Cardiac exam is normal. Abdomen is soft, nontender. There is a pigtail catheter taped to the left posterior chest. IMPRESSION: Pneumonitis with empyema. PLAN: Continue with IV fluids, antibiotics, updrafts and drainage in the left side. MMODL / IJN: [id number] /
--- NOTE | 2019-11-19 16:07 | PN ---
PROGRESS NOTE DATE OF SERVICE: 11/19/2019 REASON FOR FOLLOWUP: 1. Acute influenza. 2. Empyema. INTERVAL HISTORY: The patient is currently afebrile. The patient is status post chest tube placement with and did have removal of 1700 cc mL of the pleural fluid. The patient tolerated the procedure. The patient currently denies having any worsening chest pain. No nausea. No vomiting. No abdominal pain or diarrhea. PHYSICAL EXAMINATION: Blood pressure 150/76 with pulse of 71, temperature 97.7. He is 95% on room air. General description is a middle-aged male lying in bed in no distress. RESPIRATORY SYSTEM: Unlabored breathing with decreased breath sounds at the base. No wheeze. HEART: S1, S2. Regular rate and rhythm. ABDOMEN: Soft. No tenderness. LABS: No new labs have been obtained today. The pleural fluid culture is so far pending. DIAGNOSTIC IMPRESSION AND PLAN: 1. Patient with acute influenza which has been adequately treated. 2. Patient with pneumonia with parapneumonic effusion and empyema, status post chest tube placement . Will wait for those cultures to finalize. Continue with Unasyn and monitor clinical course closely. MMODL / IJN: [id number] /
[2019-11-19 16:38] LABS: Glucose,Whole Blood 167 mg/dL (75-99)
[2019-11-19 20:05] LABS: Glucose,Whole Blood 190 mg/dL (75-99)
[2019-11-19] MEDS: ATORVASTATIN 20 MG TAB PO SCH (21:06)
[2019-11-19] MEDS: SODIUM CHLORIDE 0.9% 1,000 ML IV SCH (21:06)
[2019-11-20] MEDS: AMPICILLIN-SULBACTAM 3 GM in SODIUM CHLORIDE 0.9% 100 ML IVPB SCH ×4 (00:09→17:25)
[2019-11-20] MEDS: METOCLOPRAMIDE 5 MG/ML 2 ML VIAL IVP SCH ×4 (00:09→17:24)
[2019-11-20] MEDS: ACETAMINOPHEN TAB 325 MG TAB PO PRN (01:23)
[2019-11-20 06:48] LABS: Basophils % (A) 0 %; Eosinophils % (A) 0 %; HCT 32.1 % (39.0-53.0); HGB 10.5 gm/dL (13.0-17.5); Lymphocytes # (A) 1.5 k/uL (1.0-4.8); Lymphocytes % (A) 10 %; MCH 31.1 pg (25.0-35.0); MCHC 32.8 g/dL (31.0-37.0); MCV 94.8 fL (80.0-100.0); Mean Platelet Volume 7.7; Monocytes # (A) 0.4 k/uL (0-1.0); Monocytes % (A) 2 %; Neutrophils # (A) 13.2 k/uL (1.3-7.7); Neutrophils % (A) 86 %; Platelet Count 523 k/uL (150-450); RBC 3.38 m/uL (4.30-5.90); RDW 13.2 % (11.5-15.5); WBC 15.4 k/uL (3.8-10.6)
--- NOTE | 2019-11-20 06:53 | XR ---
EXAMINATION TYPE: XR chest 1V portable DATE OF EXAM: 11/20/2019 HISTORY: Left pleural effusion. REFERENCE: Previous study dated 11/19/2019. FINDINGS: There has been a midline sternotomy. There is left-sided airspace disease. I suspect a left effusion. Heart size is obscured. IMPRESSION: CONTINUING LEFT-SIDED AIRSPACE DISEASE WITH A CONCOMITANT EFFUSION.
[2019-11-20 07:06] LABS: Glucose,Whole Blood 131 mg/dL (75-99)
[2019-11-20] MEDS: LISINOPRIL 20 MG TAB PO SCH (07:15)
[2019-11-20] MEDS: ASPIRIN 81 MG PO SCH (07:15)
[2019-11-20] MEDS: PANTOPRAZOLE 40 MG TABLET PO SCH (07:15)
[2019-11-20] MEDS: IBUPROFEN 400 MG TAB PO PRN ×2 (07:15→19:47)
[2019-11-20] MEDS: HEPARIN SODIUM,PORCINE 5,000 UNIT/ML 1 ML VIAL SQ SCH ×2 (07:16→21:00)
[2019-11-20] MEDS: INSULIN ASPART (NovoLOG) 100 UNIT/ML VIAL SQ SCH ×4 (07:17→21:01)
[2019-11-20] MEDS: INSULIN NPH 300 UNIT/3 ML VIAL SQ SCH ×2 (07:17→17:22)
[2019-11-20] MEDS: BISACODYL 10 MG SUPP RECTAL SCH (07:22)
[2019-11-20] MEDS: BUDESONIDE 0.5 MG/2 ML NEBU INHALATION SCH ×2 (07:46→17:33)
[2019-11-20] MEDS: IPRATROPIUM-ALBUTEROL 3 ML NEB INHALATION PRN ×4 (07:46→21:24)
[2019-11-20] MEDS ORDERED: ALTEPLASE 10 MG in SODIUM CHLORIDE 0.9% 100 ML IRRIGATION ONE (08:00)
--- NOTE | 2019-11-20 10:06 | P.PN ---
Subjective Progress Note Date: 11/20/19 Principal diagnosis: Left-sided pleural effusion, left lower lobe pneumonia, influenza A. Past medical history significant for diabetes mellitus type 2, eye disorder and a remote history of tobacco abuse. POD #2 placement of left chest pigtail catheter placed by interventional radiology. The patient is laying in bed on the fourth floor medical surgical unit. He is in no acute distress. He reports he feels better on a daily basis. Oxygen saturations are 92% on 2 L nasal cannula and he is achieving 1000 mL on his incentive spirometry. He denies any complaints of pain or shortness of breath at this time and reports his abdomen is feeling somewhat better today. His left chest pigtail catheter remains in place which was placed by interventional radiology 11/18/2019 and continues to drain thin serous drainage. A dose of Alteplase 10 mg/100 mL of normal saline was instilled through his left chest pigtail catheter yesterday with 660 mL of drainage from the pigtail catheter in 24 hours. No air leak is present. The pigtail catheter remains to low continuous wall suction -20 cm H2O. T-max temperature in the last 24 hours was 100.3F and he remains on Unasyn for antibiotics managed by infectious disease. Objective - Vital Signs Vital signs: Vital Signs Temp 98.5 F 11/20/19 07:12 Pulse 86 11/20/19 08:02 Resp 17 11/20/19 07:20 BP 151/74 11/20/19 07:12 Pulse Ox 92 L 11/20/19 07:12 Intake & Output 11/19/19 11/20/19 11/20/19 18:59 06:59 18:59 Intake Total 20 Output Total 950 400 Balance -950 -380 Intake: Intake, IV Titration 20 Amount Sodium Chloride 0.9% 1, 20 000 ml @ 20 mls/hr IV . Q24H [facility] Rx#:[id number] Output: Chest Tube Drainage 950 Chest Tube Left Posterior 950 Chest Urine 400 Other: Voiding Method Urinal Urinal Urinal # Voids 2 1 - Constitutional General appearance: Present: cooperative, no acute distress, obese - Respiratory Details: Lung sounds with few scattered rhonchi throughout, diminished to his bilateral bases left greater than right. Respirations are symmetrical and nonlabored. Oxygen saturation are 92% on 2 L nasal cannula. Achieving 1000 mL on his incentive spirometry. Left chest pigtail catheter in place to low continuous wall suction -20 cm H2O. No air leak is present. 660 mL of thin serosanguineous drainage out in the last 24 hours. - Cardiovascular Details: Regular rhythm and rate. S1 and S2 present, negative for S3, gallop or murmur. - Gastrointestinal Gastrointestinal Comment(s): Abdomen is soft, nontender and slightly distended. Active bowel sounds present in all 4 abdominal quadrants. - Integumentary Integumentary Comment(s): Skin is warm and dry. No clubbing or cyanosis present. - Neurologic Neurologic: Present: CNII-XII intact - Musculoskeletal Musculoskeletal: Present: gait normal, generalized weakness, strength equal bilaterally - Psychiatric Psychiatric: Present: A&O x's 3, appropriate affect, intact judgment & insight - Allied health notes Allied health notes reviewed: nursing - Labs CBC & Chem 7: 11/20/19 06:19 11/18/19 09:47 Labs: Abnormal Lab Results - Last 24 Hours (Table) 11/19/19 11/19/19 11/19/19 Range/Units 12:05 16:36 20:03 WBC (3.8-10.6) k/uL RBC (4.30-5.90) m/uL Hgb (13.0-17.5) gm/dL Hct (39.0-53.0) % Plt Count (150-450) k/uL Neutrophils # (1.3-7.7) k/uL POC Glucose (mg/dL) 159 H 167 H 190 H (75-99) mg/dL 11/20/19 11/20/19 Range/Units 06:19 07:00 WBC 15.4 H (3.8-10.6) k/uL RBC 3.38 L (4.30-5.90) m/uL Hgb 10.5 L (13.0-17.5) gm/dL Hct 32.1 L (39.0-53.0) % Plt Count 523 H (150-450) k/uL Neutrophils # 13.2 H (1.3-7.7) k/uL POC Glucose (mg/dL) 131 H (75-99) mg/dL Microbiology - Last 24 Hours (Table) 11/16/19 11:25 Gram Stain - Preliminary Thoracic Fluid Body Fluid Culture - Preliminary - Imaging and Cardiology Chest x-ray: report reviewed, image reviewed Assessment and Plan Assessment: 1. Left-sided pleural effusion, status post placement of left chest pigtail catheter performed by interventional radiology 2. Influenza A 3. Left lower lobe pneumonia 4. Diabetes mellitus type 2 5. Remote history of tobacco abuse Plan: 1. Keep left chest pigtail catheter in place to low continuous wall suction -20 cm H2O. We will instill dose two of alteplase 10 mg/100 mL normal saline pleural instillation to his pigtail catheter today. 2. Continue to encourage use of his incentive spirometry every hour while awake. 3. Encourage continued smoking cessation. 4. Bronchodilators per pulmonary medicine management. 5. Antibiotic management per infectious disease. 6. Medical management and other comorbidities per primary care service. 7. Continue to monitor daily chest x-rays. 8. More recommendations to follow based on patient's clinical course. Time with Patient: Greater than 30
--- NOTE | 2019-11-20 10:30 | P.PN ---
Subjective Progress Note Date: 11/20/19 Principal diagnosis: Ileus Patient seems to be doing better today. He did have a bowel movement. Still feels bloated. No nausea or vomiting. Tolerating regular diet. T-max 100.3. Objective - Vital Signs Vital signs: Vital Signs Temp 98.5 F 11/20/19 07:12 Pulse 86 11/20/19 08:02 Resp 17 11/20/19 07:20 BP 151/74 11/20/19 07:12 Pulse Ox 92 L 11/20/19 07:12 Intake & Output 11/19/19 11/20/19 11/20/19 18:59 06:59 18:59 Intake Total 20 Output Total 950 400 Balance -950 -380 Intake: Intake, IV Titration 20 Amount Sodium Chloride 0.9% 1, 20 000 ml @ 20 mls/hr IV . Q24H [facility] Rx#:[id number] Output: Chest Tube Drainage 950 Chest Tube Left Posterior 950 Chest Urine 400 Other: Voiding Method Urinal Urinal Urinal # Voids 2 1 - Exam Abdomen: Soft, mild distention, nontender - Labs CBC & Chem 7: 11/20/19 06:19 11/18/19 09:47 Labs: Abnormal Lab Results - Last 24 Hours (Table) 11/19/19 11/19/19 11/19/19 Range/Units 12:05 16:36 20:03 WBC (3.8-10.6) k/uL RBC (4.30-5.90) m/uL Hgb (13.0-17.5) gm/dL Hct (39.0-53.0) % Plt Count (150-450) k/uL Neutrophils # (1.3-7.7) k/uL POC Glucose (mg/dL) 159 H 167 H 190 H (75-99) mg/dL 11/20/19 11/20/19 Range/Units 06:19 07:00 WBC 15.4 H (3.8-10.6) k/uL RBC 3.38 L (4.30-5.90) m/uL Hgb 10.5 L (13.0-17.5) gm/dL Hct 32.1 L (39.0-53.0) % Plt Count 523 H (150-450) k/uL Neutrophils # 13.2 H (1.3-7.7) k/uL POC Glucose (mg/dL) 131 H (75-99) mg/dL Microbiology - Last 24 Hours (Table) 11/16/19 11:25 Gram Stain - Preliminary Thoracic Fluid Body Fluid Culture - Preliminary Assessment and Plan (1) Ileus Narrative/Plan: Patient overall doing better from an abdominal standpoint. Continue diet as tolerated. Ambulate. Current Visit: Yes Status: Acute Code(s): K56.7 - ILEUS, UNSPECIFIED SNOMED Code(s): 237395684
[2019-11-20 12:02] LABS: Glucose,Whole Blood 159 mg/dL (75-99)
[2019-11-20 17:01] LABS: Glucose,Whole Blood 241 mg/dL (75-99)
--- NOTE | 2019-11-20 17:09 | PN ---
PROGRESS NOTE DATE OF SERVICE: 11/20/2019 REASON FOR FOLLOWUP: 1. Acute influenza. 2. Pneumonia with parapneumonic effusion. INTERVAL HISTORY: The patient did have a low-grade fever this morning of 100.8. The patient afebrile since then. The patient has been breathing comfortably. Denies having any chest pain. Did have some cough but not bringing up sputum. No nausea, vomiting. No abdominal pain. No diarrhea. PHYSICAL EXAMINATION: Blood pressure 155/74, with a pulse of 84, temperature 98.5. He is 92% on 2 L nasal cannula. General description is a middle-aged male lying in bed in no distress. Respiratory system: Unlabored breathing. Decreased breath sounds at the base. No wheeze. Heart S1, S2. Regular rate and rhythm. Abdomen soft, no tenderness. LABS: Hemoglobin is 10.5, with white count 15.4. Culture so far negative. DIAGNOSTIC IMPRESSION AND PLAN: 1. Patient with acute influenza has been adequately treated. 2. The patient with pneumonia, left-sided along with parapneumonic effusion. The patient at this time covered with Unasyn, we will wait for the culture to finalize to adjust antibiotic further if needed. Monitor clinical course closely. MMODL / IJN: [id number] /
--- NOTE | 2019-11-20 17:33 | PN ---
PROGRESS NOTE DATE OF SERVICE: 11/20/2019. He has been hemodynamically stable and does not complain of shortness of breath. He has a little bit of chest pain. On physical examination, blood pressure is 137/64, respiratory rate is 17, pulse rate 82, temperature 98 degrees Fahrenheit, O2 saturation on 2 L by nasal cannula is 93%. HEENT is unremarkable. Chest reveals fair air entry on the left. Cardiovascular system is S1, S2. Abdomen is soft. There is no pedal edema. Chest x-ray shows continuing left-sided airspace disease with concomitant effusion. IMPRESSION: At this time is: 1. Left-sided empyema. 2. Pneumonia. 3. Diabetes mellitus type 2. Continue antibiotics. Continue chest tube drainage. At some point require and benefit from decortication. Continue blood sugar control. Prognosis fair. MMODL / IJN: [id number] /
[2019-11-20 20:54] LABS: Glucose,Whole Blood 216 mg/dL (75-99)
[2019-11-20] MEDS: ATORVASTATIN 20 MG TAB PO SCH (21:00)
--- NOTE | 2019-11-20 22:31 | PN ---
PROGRESS NOTE DATE OF SERVICE: 11/20/2019. CHIEF COMPLAINT: Pneumonitis with left pleural effusion. HISTORY OF PRESENT ILLNESS: This gentleman continues to improve. Antibiotics are being introduced into the left pleural cavity. He has been afebrile. PHYSICAL EXAMINATION: He still has a very poor breath sounds in the left base with scattered rhonchi and rales. Cardiac exam is normal. IMPRESSION: Bronchial pneumonia with left pleural effusion and empyema. PLAN: Continue with current treatment until he is stable enough that the catheter can be removed. MMODL / IJN: [id number] /
[2019-11-21] MEDS: METOCLOPRAMIDE 5 MG/ML 2 ML VIAL IVP SCH ×5 (00:18→23:51)
[2019-11-21] MEDS: AMPICILLIN-SULBACTAM 3 GM in SODIUM CHLORIDE 0.9% 100 ML IVPB SCH ×5 (00:18→23:51)
[2019-11-21 01:52] LABS: Glucose,Whole Blood 130 mg/dL (75-99)
[2019-11-21] MEDS: SODIUM CHLORIDE 0.9% 1,000 ML IV SCH ×2 (06:57→17:21)
[2019-11-21 07:15] LABS: Glucose,Whole Blood 155 mg/dL (75-99)
[2019-11-21] MEDS: HEPARIN SODIUM,PORCINE 5,000 UNIT/ML 1 ML VIAL SQ SCH ×2 (07:31→21:19)
[2019-11-21] MEDS: INSULIN NPH 300 UNIT/3 ML VIAL SQ SCH ×2 (07:31→17:29)
[2019-11-21] MEDS: INSULIN ASPART (NovoLOG) 100 UNIT/ML VIAL SQ SCH ×4 (07:31→21:19)
[2019-11-21] MEDS: LISINOPRIL 20 MG TAB PO SCH (07:32)
[2019-11-21] MEDS: ASPIRIN 81 MG PO SCH (07:32)
[2019-11-21] MEDS: PANTOPRAZOLE 40 MG TABLET PO SCH (07:32)
[2019-11-21] MEDS: IPRATROPIUM-ALBUTEROL 3 ML NEB INHALATION PRN ×4 (07:46→19:57)
[2019-11-21] MEDS: BUDESONIDE 0.5 MG/2 ML NEBU INHALATION SCH ×2 (07:46→19:57)
--- NOTE | 2019-11-21 08:37 | XR ---
EXAMINATION TYPE: XR chest 1V portable DATE OF EXAM: 11/21/2019 HISTORY: Shortness of breath. COMPARISON: 11/20/2019 TECHNIQUE: Single view of the chest is submitted. FINDINGS: Demonstrated are scattered senescent parenchymal change. Persistent infiltrate about the left perihilar and left lower lobe regions with associated pleural ef fusion. Left basilar pleural drain is in place. The heart is stable. Hilar and mediastinal structures are within normal limits. Degenerative changes are seen of the dorsal spine. IMPRESSION: 1. Stable chest.
--- NOTE | 2019-11-21 10:39 | P.PN ---
<Hannah Daniel Odalis - Last Filed: 11/21/19 10:33> Subjective Progress Note Date: 11/21/19 CHIEF COMPLAINT: Abdominal pain HISTORY OF PRESENT ILLNESS: Patient examined this morning at the bedside. Denies abdominal pain. Reports improvement in abdominal distention. Tolerating diet. No nausea or vomiting. Passing flatus and having bowel movements. Vital signs stable. He is afebrile. PHYSICAL EXAM: VITAL SIGNS: Reviewed. GENERAL: Well-developed in no acute distress. HEENT: No sclera icterus. Extraocular movements grossly intact. Moist buccal mucosa. Head is atraumatic, normocephalic. ABDOMEN: Soft. Minimal distention. Nontender with palpation. NEUROLOGIC: Alert and oriented. Cranial nerves II through XII grossly intact ASSESSMENT: 1. Abdominal pain 2. Ileus PLAN: Continue regular diet as tolerated No surgical intervention recommended We will sign off. Please re-consult if needed Nurse practitioner note has been reviewed by physician. Signing provider agrees with the documented findings, assessment, and plan of care. Objective - Vital Signs Vital signs: Vital Signs Temp 98 F 11/21/19 08:28 Pulse 63 11/21/19 08:28 Resp 18 11/21/19 08:28 BP 122/62 11/21/19 08:28 Pulse Ox 95 11/21/19 08:28 Intake & Output 11/20/19 11/21/19 11/21/19 18:59 06:59 18:59 Intake Total 500 Output Total 1030 Balance -1030 500 Intake: Intake, IV Titration 250 Amount Sodium Chloride 0.9% 1, 250 000 ml @ 20 mls/hr IV . Q24H [facility] Rx#:[id number] Oral 250 Output: Chest Tube Drainage 30 Chest Tube Left Posterior 30 Chest Urine 1000 Other: Voiding Method Urinal Toilet Toilet Urinal # Voids 1 2 - Labs CBC & Chem 7: 11/20/19 06:19 11/18/19 09:47 Labs: Abnormal Lab Results - Last 24 Hours (Table) 11/20/19 11/20/19 11/20/19 Range/Units 12:00 16:59 20:52 POC Glucose (mg/dL) 159 H 241 H 216 H (75-99) mg/dL 11/21/19 11/21/19 Range/Units 01:47 07:12 POC Glucose (mg/dL) 130 H 155 H (75-99) mg/dL Microbiology - Last 24 Hours (Table) 11/16/19 11:25 Gram Stain - Final Thoracic Fluid Body Fluid Culture - Final <Héctor Chen - Last Filed: 11/21/19 10:48> Subjective As above. Patient doing well. Tolerating diet. Good bowel function. We'll sign off. Please call if needed. Objective - Vital Signs Vital signs: Vital Signs Temp 98 F 11/21/19 08:28 Pulse 63 11/21/19 08:28 Resp 18 11/21/19 08:28 BP 122/62 11/21/19 08:28 Pulse Ox 95 11/21/19 08:28 Intake & Output 11/20/19 11/21/19 11/21/19 18:59 06:59 18:59 Intake Total 500 Output Total 1030 Balance -1030 500 Intake: Intake, IV Titration 250 Amount Sodium Chloride 0.9% 1, 250 000 ml @ 20 mls/hr IV . Q24H [facility] Rx#:[id number] Oral 250 Output: Chest Tube Drainage 30 Chest Tube Left Posterior 30 Chest Urine 1000 Other: Voiding Method Urinal Toilet Toilet Urinal # Voids 1 2 - Labs CBC & Chem 7: 11/20/19 06:19 11/18/19 09:47 Labs: Abnormal Lab Results - Last 24 Hours (Table) 11/20/19 11/20/19 11/20/19 Range/Units 12:00 16:59 20:52 POC Glucose (mg/dL) 159 H 241 H 216 H (75-99) mg/dL 11/21/19 11/21/19 Range/Units 01:47 07:12 POC Glucose (mg/dL) 130 H 155 H (75-99) mg/dL Microbiology - Last 24 Hours (Table) 11/16/19 11:25 Gram Stain - Final Thoracic Fluid Body Fluid Culture - Final Assessment and Plan (1) Ileus Current Visit: Yes Status: Acute Code(s): K56.7 - ILEUS, UNSPECIFIED SNOMED Code(s): 890071342
[2019-11-21 11:38] LABS: Glucose,Whole Blood 224 mg/dL (75-99)
--- NOTE | 2019-11-21 16:26 | MISC ---
MISCELLANOUS REPORT QUERY: Type 2 diabetes with hyperglycemia. MMODL / IJN: [id number] /
--- NOTE | 2019-11-21 16:29 | MISC ---
MISCELLANOUS REPORT QUERY: Present and active sepsis is present, active on admission. MMODL / IJN: [id number] /
[2019-11-21 17:12] LABS: Glucose,Whole Blood 206 mg/dL (75-99)
--- NOTE | 2019-11-21 17:51 | P.PN ---
Subjective Progress Note Date: 11/21/19 Principal diagnosis: Left-sided pleural effusion, left lower lobe pneumonia, influenza A. Past medical history significant for diabetes mellitus type 2, eye disorder and a remote history of tobacco abuse. POD #3 placement of left chest pigtail catheter placed by interventional radiology. The patient is laying in bed on the fourth floor medical surgical unit. He is in no acute distress. He continues to report he feels better on a daily basis. Oxygen saturations are 93% on 2 L nasal cannula and he is achieving 1000 mL on his incentive spirometry. He denies any complaints of pain or shortness of breath. His left chest pigtail catheter remains in place which was placed by interventional radiology 11/18/2019 with 100 mL drainage in the last 24 hours. A dose of Alteplase 10 mg/100 mL of normal saline was instilled through his left chest pigtail catheter yesterday and also on 11/19/2019. No air leak is present. The pigtail catheter remains to low continuous wall suction -20 cm H2O. T-max temperature in the last 24 hours was 100.3F and he remains on Unasyn for antibiotics, which is managed by infectious disease. Objective - Vital Signs Vital signs: Vital Signs Temp 98 F 11/21/19 15:19 Pulse 84 11/21/19 16:34 Resp 16 11/21/19 15:19 BP 157/57 11/21/19 15:19 Pulse Ox 93 L 11/21/19 15:19 Intake & Output 11/20/19 11/21/19 11/21/19 18:59 06:59 18:59 Intake Total 500 Output Total 1030 Balance -1030 500 Intake: Intake, IV Titration 250 Amount Sodium Chloride 0.9% 1, 250 000 ml @ 20 mls/hr IV . Q24H [facility] Rx#:[id number] Oral 250 Output: Chest Tube Drainage 30 Chest Tube Left Posterior 30 Chest Urine 1000 Other: Voiding Method Urinal Toilet Toilet Urinal # Voids 1 2 3 # Bowel Movements 1 - Constitutional General appearance: Present: cooperative, no acute distress, obese - Respiratory Details: Lung sounds diminished to his bilateral bases left greater than right. Respirations are symmetrical and nonlabored. Oxygen saturation are 96% on 2 L nasal cannula. Achieving 1000 mL on his incentive spirometry. Left chest pigtail catheter in place to low continuous wall suction -20 cm H2O. No air leak is present. 100 mL of thin serosanguineous drainage out in the last 24 hours. - Cardiovascular Details: Regular rhythm and rate. S1 and S2 present, negative for S3, gallop or murmur. - Gastrointestinal Gastrointestinal Comment(s): Abdomen is soft, nontender and slightly distended. Active bowel sounds present in all 4 abdominal quadrants. - Genitourinary Genitourinary Comment(s): Continues to void clear breonna urine. - Integumentary Integumentary Comment(s): Skin is warm and dry. No clubbing or cyanosis present. - Neurologic Neurologic: Present: CNII-XII intact - Musculoskeletal Musculoskeletal: Present: gait normal, generalized weakness, strength equal bilaterally - Psychiatric Psychiatric: Present: A&O x's 3, appropriate affect, intact judgment & insight - Allied health notes Allied health notes reviewed: nursing - Labs CBC & Chem 7: 11/20/19 06:19 11/18/19 09:47 Labs: Abnormal Lab Results - Last 24 Hours (Table) 11/20/19 11/21/19 11/21/19 Range/Units 20:52 01:47 07:12 POC Glucose (mg/dL) 216 H 130 H 155 H (75-99) mg/dL 11/21/19 11/21/19 Range/Units 11:36 17:09 POC Glucose (mg/dL) 224 H 206 H (75-99) mg/dL Microbiology - Last 24 Hours (Table) 11/16/19 11:25 Gram Stain - Final Thoracic Fluid Body Fluid Culture - Final - Imaging and Cardiology Chest x-ray: report reviewed, image reviewed Assessment and Plan Assessment: 1. Left-sided pleural effusion, status post placement of left chest pigtail catheter performed by interventional radiology 2. Influenza A 3. Left lower lobe pneumonia 4. Diabetes mellitus type 2 5. Remote history of tobacco abuse Plan: 1. Keep left chest pigtail catheter in place to low continuous wall suction -20 cm H2O. We will hold off on the further alteplase pleural instillation today. 2. Continue to encourage use of his incentive spirometry every hour while awake. 3. Encourage continued smoking cessation. 4. Bronchodilators per pulmonary medicine management. 5. Antibiotic management per infectious disease. 6. Medical management and other comorbidities per primary care service. 7. Continue to monitor daily chest x-rays. 8. More recommendations to follow based on patient's clinical course. Time with Patient: Greater than 30
--- NOTE | 2019-11-21 18:47 | PN ---
PROGRESS NOTE DATE OF SERVICE: 11/21/2019 He has less pain. He is using his IS up to 1000. On physical examination, his blood pressure was 157/57, respiratory rate of 16, pulse rate of 86, temperature 98 degrees Fahrenheit. Oxygen saturation on 2 liters by nasal cannula is 93%. HEENT reveals pupils that are equal. Chest reveals decreased breath sounds on the left with a chest tube in place. Cardiovascular system reveals an S1, S2. Abdomen is soft. There is no pedal edema. Blood sugars are in the 200 range. Last white count of 15.4 on 11/20/2019, with a hemoglobin of 10.5. IMPRESSION AT THIS TIME: 1. Left-sided empyema. 2. Influenza. Continue Unasyn. Continue bronchodilators. GI and DVT prophylaxis. Continue inhaled steroids. Chest tube management per Cardiothoracic Surgery. MMODL / IJN: [id number] /
--- NOTE | 2019-11-21 19:26 | PN ---
PROGRESS NOTE CHIEF COMPLAINT: Pneumonitis with sepsis and left empyema. HISTORY OF PRESENT ILLNESS: This gentleman has been stable. Temperature has been down. There have been no new developments. Catheter is still in place. PHYSICAL EXAMINATION: He is afebrile. Chest demonstrates persistent rales and rhonchi scattered throughout, but generally his breath sounds are improving. Cardiac exam is normal. IMPRESSION: 1. Bilateral bronchial pneumonia. 2. Left empyema. PLAN: No change in current program. MMODL / IJN: [id number] /
[2019-11-21 20:40] LABS: Glucose,Whole Blood 263 mg/dL (75-99)
[2019-11-21] MEDS: ATORVASTATIN 20 MG TAB PO SCH (21:19)
[2019-11-21] MEDS: IBUPROFEN 400 MG TAB PO PRN (23:58)
--- NOTE | 2019-11-22 05:15 | PN ---
PROGRESS NOTE DATE OF SERVICE: 11/21/2019 REASON FOR FOLLOWUP: Left-sided pneumonia with parapneumonic effusion, empyema. INTERVAL HISTORY: The patient is currently afebrile, has been breathing comfortably. Pain to the left lower chest is currently controlled. Still has a chest tube in. No nausea, no vomiting. No abdominal pain. No diarrhea. PHYSICAL EXAMINATION: Blood pressure 119/62 with a pulse of 89, temperature 99.3. He is 94% on room air. General description is a middle-aged male lying in bed in no distress. RESPIRATORY SYSTEM: Unlabored breathing. Decreased breath sounds at the bases. No wheeze. HEART: S1, S2. Regular rate and rhythm. ABDOMEN: Soft, no tenderness. LABS: No new labs have been obtained today. Culture remains to be negative. DIAGNOSTIC IMPRESSION AND PLAN: Patient with left-sided pneumonia with empyema in this patient who is status post chest tube. Cultures remain to be negative. Patient is covered with Unasyn to continue. Repeat the labs tomorrow. Monitor clinical course closely. MMODL / IJN: [id number] /
[2019-11-22] MEDS: METOCLOPRAMIDE 5 MG/ML 2 ML VIAL IVP SCH ×2 (06:29→12:09)
[2019-11-22] MEDS: AMPICILLIN-SULBACTAM 3 GM in SODIUM CHLORIDE 0.9% 100 ML IVPB SCH ×3 (06:29→17:06)
[2019-11-22] MEDS: IBUPROFEN 400 MG TAB PO PRN ×2 (06:29→17:05)
[2019-11-22] MEDS: guaiFENesin 600 MG TABLET.ER PO PRN ×2 (06:29→22:21)
[2019-11-22 06:48] LABS: Glucose,Whole Blood 236 mg/dL (75-99)
[2019-11-22 08:03] LABS: Basophils % (A) 0 %; Eosinophils % (A) 0 %; HCT 30.2 % (39.0-53.0); HGB 9.9 gm/dL (13.0-17.5); Lymphocytes # (A) 1.1 k/uL (1.0-4.8); Lymphocytes % (A) 9 %; MCHC 32.6 g/dL (31.0-37.0); Mean Platelet Volume 7.1; Monocytes # (A) 0.3 k/uL (0-1.0); Monocytes % (A) 3 %; Neutrophils # (A) 10.6 k/uL (1.3-7.7); Neutrophils % (A) 86 %; Platelet Count 589 k/uL (150-450); RBC 3.18 m/uL (4.30-5.90); RDW 13.1 % (11.5-15.5); WBC 12.3 k/uL (3.8-10.6)
[2019-11-22] MEDS: IPRATROPIUM-ALBUTEROL 3 ML NEB INHALATION PRN ×3 (08:03→20:07)
[2019-11-22] MEDS: BUDESONIDE 0.5 MG/2 ML NEBU INHALATION SCH ×2 (08:06→20:07)
[2019-11-22] MEDS: INSULIN ASPART (NovoLOG) 100 UNIT/ML VIAL SQ SCH ×4 (08:08→22:06)
[2019-11-22] MEDS: PANTOPRAZOLE 40 MG TABLET PO SCH (08:08)
[2019-11-22] MEDS: HEPARIN SODIUM,PORCINE 5,000 UNIT/ML 1 ML VIAL SQ SCH ×2 (08:08→22:20)
[2019-11-22] MEDS: LISINOPRIL 20 MG TAB PO SCH (08:08)
[2019-11-22] MEDS: ASPIRIN 81 MG PO SCH (08:08)
--- NOTE | 2019-11-22 08:09 | XR ---
EXAMINATION TYPE: XR chest 1V portable DATE OF EXAM: 11/22/2019 Comparison: 11/21/2019 Clinical History: 54-year-old male Left pleural effusion Findings: Median sternotomy wires with post-CABG clips in the mediastinum. Heart upper limits of normal in size . Right lung and pleural space are relatively clear. Continued small left pleural effusion with left basilar pigtail pleural catheter in place. Extensive patchy opacities persist throughout the left mid and lower lung. Impression: 1. Similar small left pleural effusion with pigtail pleural catheter in place. 2. Similar more extensive opacities throughout the left mid and lower lung.
[2019-11-22] MEDS: INSULIN NPH 300 UNIT/3 ML VIAL SQ SCH ×3 (08:15→17:16)
[2019-11-22 11:52] LABS: Glucose,Whole Blood 167 mg/dL (75-99)
[2019-11-22] MEDS ORDERED: ALTEPLASE 10 MG in SODIUM CHLORIDE 0.9% 100 ML IRRIGATION ONE (13:00)
--- NOTE | 2019-11-22 15:11 | P.PN ---
Subjective Progress Note Date: 11/22/19 Principal diagnosis: Left-sided pleural effusion, left lower lobe pneumonia, influenza A. Past medical history significant for diabetes mellitus type 2, eye disorder and a remote history of tobacco abuse. POD #4 placement of left chest pigtail catheter placed by interventional radiology. The patient is laying in bed on the fourth floor medical surgical unit. He is in no acute distress. He denies any complaints of pain or shortness of breath at this time and reports that he is feeling much better on a daily basis. He denies any further abdominal discomfort although reports that he has been having frequent episodes of diarrhea. His left chest pigtail catheter remained in place to low continuous wall suction -20 cm H2O. No air leak is present. No drainage output in the last 24 hours. He remains afebrile last 24 hours and continues on Unasyn for antibiotic coverage. CBC results today showed a WBC count of 12.3, hemoglobin 9.9, 30.2 hematocrit, platelets 589. Objective - Vital Signs Vital signs: Vital Signs Temp 98.1 F 11/22/19 07:55 Pulse 82 11/22/19 08:21 Resp 16 11/22/19 07:55 BP 107/70 11/22/19 07:55 Pulse Ox 92 L 11/22/19 07:55 Intake & Output 11/21/19 11/22/19 11/22/19 18:59 06:59 18:59 Other: Voiding Method Toilet Toilet Toilet Urinal Urinal Urinal # Voids 3 2 5 # Bowel Movements 1 1 4 - Constitutional General appearance: Present: cooperative, no acute distress, obese - Respiratory Details: Lung sounds essentially clear to his bilateral upper lobes, diminished his bilateral bases left greater than right. Respirations are symmetrical and nonlabored. Oxygen saturation is 92% on room air. Achieving 0454-5179 mL on his incentive spirometry. Left chest pigtail catheter remains in place to low continuous wall suction -20 cm H2O. No air leak is present. No drainage last 24 hours. - Cardiovascular Details: Regular rhythm and rate. S1 and S2 present, negative for S3, gallop or murmur. - Gastrointestinal Gastrointestinal Comment(s): Abdomen is soft, nontender and nondistended. Active bowel sounds present all 4 abdominal quadrants. - Genitourinary Genitourinary Comment(s): Voiding clear breonna urine. - Integumentary Integumentary Comment(s): Skin is warm and dry. No clubbing or cyanosis is present. Left chest pigtail catheter dressing clean and dry. - Neurologic Neurologic: Present: CNII-XII intact - Musculoskeletal Musculoskeletal: Present: gait normal, strength equal bilaterally - Psychiatric Psychiatric: Present: A&O x's 3, appropriate affect, intact judgment & insight - Allied health notes Allied health notes reviewed: nursing - Labs CBC & Chem 7: 11/22/19 07:48 11/18/19 09:47 Labs: Abnormal Lab Results - Last 24 Hours (Table) 11/21/19 11/21/19 11/22/19 Range/Units 17:09 20:36 06:42 WBC (3.8-10.6) k/uL RBC (4.30-5.90) m/uL Hgb (13.0-17.5) gm/dL Hct (39.0-53.0) % Plt Count (150-450) k/uL Neutrophils # (1.3-7.7) k/uL POC Glucose (mg/dL) 206 H 263 H 236 H (75-99) mg/dL 11/22/19 11/22/19 Range/Units 07:48 11:51 WBC 12.3 H (3.8-10.6) k/uL RBC 3.18 L (4.30-5.90) m/uL Hgb 9.9 L (13.0-17.5) gm/dL Hct 30.2 L (39.0-53.0) % Plt Count 589 H (150-450) k/uL Neutrophils # 10.6 H (1.3-7.7) k/uL POC Glucose (mg/dL) 167 H (75-99) mg/dL Microbiology - Last 24 Hours (Table) 11/14/19 11:00 Acid Fast Bacilli Smear - Final Sputum Acid Fast Bacilli Culture - Preliminary - Imaging and Cardiology Chest x-ray: report reviewed, image reviewed Assessment and Plan Assessment: 1. Left-sided pleural effusion, status post placement of left chest pigtail catheter performed by interventional radiology 2. Influenza A 3. Left lower lobe pneumonia 4. Diabetes mellitus type 2 5. Remote history of tobacco abuse Plan: 1. Keep left chest pigtail catheter in place to low continuous wall suction -20 cm H2O. We will complete another dose of alteplase pleural instillation 10 mg in 100 mL of normal saline today per his left chest pigtail catheter. 2. Continue to encourage use of his incentive spirometry every hour while awake. 3. Encourage continued smoking cessation. 4. Bronchodilators per pulmonary medicine management. 5. Antibiotic management per infectious disease. 6. Medical management and other comorbidities per primary care service. 7. Continue to monitor daily chest x-rays. 8. If there is no drainage out of the left chest pigtail catheter in the next 24 hours we will repeat a computed tomography scan of his chest with contrast. We will recheck his BUN and creatinine the morning and continue to follow his CBC results. 9. Due to the patient's diarrhea we will send a stool for C. diff. 10. More recommendations to follow based on patient's clinical course. Time with Patient: Greater than 30
--- NOTE | 2019-11-22 15:38 | PN ---
PROGRESS NOTE DATE OF SERVICE: 11/22/2019 REASON FOR FOLLOWUP: Pneumonia and empyema. INTERVAL HISTORY: The patient is currently afebrile, has been breathing comfortably. Chest pain has decreased in intensity. Still has some cough, not bringing up any sputum. No nausea, no vomiting and no diarrhea has been reported. PHYSICAL EXAMINATION: Blood pressure 107/70 with a pulse of 70, temperature 98.1, he is 92% on room air. General description is a middle-aged male lying in bed in no distress. RESPIRATORY SYSTEM: Unlabored breathing. Decreased breath sounds in the bases, no wheeze. HEART: S1, S2. Regular rate and rhythm. ABDOMEN: Soft, no tenderness. LABS: Hemoglobin of 9.8, white count of 4.3. No BMP has been done. DIAGNOSTIC IMPRESSION AND PLAN: Patient with left-sided pneumonia with parapneumonic effusion status, status post pigtail catheter, at the place of injection today. Unasyn to continue as well as Will repeat the blood work tomorrow. Monitor clinical course closely. MMODL / IJN: [id number] /
[2019-11-22 16:38] LABS: Glucose,Whole Blood 77 mg/dL (75-99)
[2019-11-22 20:45] LABS: Glucose,Whole Blood 138 mg/dL (75-99)
[2019-11-22] MEDS: ATORVASTATIN 20 MG TAB PO SCH (22:20)
--- NOTE | 2019-11-22 22:37 | PN ---
PROGRESS NOTE DATE OF SERVICE: 11/22/2019 This patient has less shortness of breath and has no pain. On physical examination, respiratory rate is 16, pulse rate of 66, temperature 98.1, blood pressure 132/65. Oxygen saturation on room air is 98%. HEENT reveals pupils that are equal. Chest reveals decreased breath sounds on the left with chest tube in place. Fair air entry. Right is relatively clear. Cardiovascular system reveals an S1, S2. No S3, no S4. Abdomen is soft. There is no pedal edema. Labs reveal a white count of 12.3, hemoglobin 9.9. IMPRESSION AT THIS TIME: 1. Left-sided empyema. 2. Diabetes mellitus, type 2. At this point in time, continue Unasyn. Per Thoracic Surgery, the left-sided pigtail catheter will be kept in place and Alteplase will be installed with normal saline. Continue him on his current medications, which were reviewed. His prognosis is fair. MMODL / IJN: [id number] /
[2019-11-22] MEDS: SODIUM CHLORIDE 0.9% 1,000 ML IV SCH (22:42)
[2019-11-23] MEDS: AMPICILLIN-SULBACTAM 3 GM in SODIUM CHLORIDE 0.9% 100 ML IVPB SCH ×4 (01:46→17:05)
[2019-11-23 06:52] LABS: Glucose,Whole Blood 195 mg/dL (75-99)
[2019-11-23] MEDS: BUDESONIDE 0.5 MG/2 ML NEBU INHALATION SCH ×2 (07:05→19:58)
[2019-11-23] MEDS: IPRATROPIUM-ALBUTEROL 3 ML NEB INHALATION PRN ×3 (07:05→19:58)
[2019-11-23] MEDS: ASPIRIN 81 MG PO SCH (07:25)
[2019-11-23] MEDS: IBUPROFEN 400 MG TAB PO PRN (07:25)
[2019-11-23] MEDS: PANTOPRAZOLE 40 MG TABLET PO SCH (07:25)
[2019-11-23] MEDS: LISINOPRIL 20 MG TAB PO SCH (07:25)
[2019-11-23] MEDS: HEPARIN SODIUM,PORCINE 5,000 UNIT/ML 1 ML VIAL SQ SCH ×2 (07:26→20:44)
[2019-11-23] MEDS: INSULIN NPH 300 UNIT/3 ML VIAL SQ SCH ×2 (07:26→17:05)
[2019-11-23] MEDS: INSULIN ASPART (NovoLOG) 100 UNIT/ML VIAL SQ SCH ×4 (07:27→20:43)
[2019-11-23 08:34] LABS: African American GFR (CKD) >90 (>60 ml/min/1.73 sqM); Anion Gap 10 mmol/L; Blood Urea Nitrogen 7 mg/dL (9-20); Calcium 7.7 mg/dL (8.4-10.2); Carbon Dioxide 27 mmol/L (22-30); Chloride 101 mmol/L (98-107); Glucose 195 mg/dL (74-99); Non-African American GFR(CKD) >90 (>60 ml/min/1.73 sqM); Potassium 3.8 mmol/L (3.5-5.1); Sodium 138 mmol/L (137-145)
--- NOTE | 2019-11-23 08:36 | XR ---
EXAMINATION TYPE: XR chest 1V portable DATE OF EXAM: 11/23/2019 COMPARISON: 11/22/2019 INDICATION: Left pleural effusion TECHNIQUE: Single frontal view of the chest is obtained. FINDINGS: The heart size is normal. The pulmonary vasculature is normal. There is mild left perihilar and left lower lobe infiltrate. This may be slightly improved from tanisha rison. Left basilar drainage tube remains present. Sternotomy wires are present from prior CABG. IMPRESSION: 1. Left perihilar and left lower lobe infiltrate. Correlate for pneumonia. This is slightly improved from comparison. Continued follow-up is recommended.
[2019-11-23 08:53] LABS: Basophils % (A) 0 %; Eosinophils % (A) 0 %; HCT 31.6 % (39.0-53.0); HGB 10.2 gm/dL (13.0-17.5); Lymphocytes # (A) 1.4 k/uL (1.0-4.8); Lymphocytes % (A) 13 %; MCH 31.1 pg (25.0-35.0); MCHC 32.1 g/dL (31.0-37.0); MCV 96.9 fL (80.0-100.0); Mean Platelet Volume 7.1; Monocytes # (A) 0.5 k/uL (0-1.0); Monocytes % (A) 4 %; Neutrophils # (A) 8.7 k/uL (1.3-7.7); Neutrophils % (A) 81 %; Platelet Count 682 k/uL (150-450); RBC 3.26 m/uL (4.30-5.90); WBC 10.8 k/uL (3.8-10.6)
[2019-11-23] MEDS ORDERED: RX INFO: IV CONTRAST WAS GIVEN 1 EACH MISC MISCELLANE PRN (09:10)
--- NOTE | 2019-11-23 11:10 | P.PN ---
Subjective Progress Note Date: 11/23/19 Principal diagnosis: Left-sided pleural effusion, left lower lobe pneumonia, influenza A. Past medical history significant for diabetes mellitus type 2, eye disorder and a remote history of tobacco abuse. POD #5 placement of left chest pigtail catheter placed by interventional radiology. The patient is laying in bed on the fourth floor medical surgical unit. He is in no acute distress. He denies any complaints of pain or shortness of breath at this time. The patient clinically looks much improved this morning and he reports he is feeling much better. He also reports that his episodes of frequent episodes of diarrhea have improved and his stool for C. difficile was negative from yesterday and his Reglan was stopped by general surgery. His left chest pigtail catheter remained in place to low continuous wall suction -20 cm H2O. No air leak is present. Alteplase 10 mg/100 mL normal saline was instilled into his left chest pigtail catheter yesterday with 200 mL of thin serosanguineous drainage returned in the last 24 hours. He remains afebrile last 24 hours and continues on Unasyn for antibiotic coverage. His repeat CBC this morning continues to show his WBC count trending down, his WBC count is 10.8 today, hemoglobin 10.2, BUN 7 and creatinine 0.76. Objective - Vital Signs Vital signs: Vital Signs Temp 98.4 F 11/23/19 07:20 Pulse 78 11/23/19 09:50 Resp 22 11/23/19 09:50 BP 137/68 11/23/19 07:20 Pulse Ox 93 L 11/23/19 07:20 Intake & Output 11/22/19 11/23/19 11/23/19 18:59 06:59 18:59 Output Total 30 Balance -30 Weight 69 kg Output: Chest Tube Drainage 30 Chest Tube Left Posterior 30 Chest Other: Voiding Method Toilet Toilet Toilet Urinal Urinal # Voids 5 3 # Bowel Movements 4 2 1 - Constitutional General appearance: Present: cooperative, no acute distress, obese - Respiratory Details: Lung sounds with few scattered rhonchi throughout, diminished to his bilateral bases left greater than right. Respirations are symmetrical and nonlabored. Oxygen saturation is 93% on room air. He is achieving 1000 mL on his incentive spirometry. Left chest pigtail catheter in place to low continuous wall suction -20 cm H2O. Draining thin serosanguineous drainage with 200 mL output in the last 24 hours. No air leak is present. - Cardiovascular Details: Regular rhythm and rate. S1 and S2 present, negative for S3, gallop or murmur. No edema present. - Gastrointestinal Gastrointestinal Comment(s): Abdomen is soft, nontender nondistended. Active bowel sounds present in all 4 abdominal quadrants. No guarding or rigidity. - Genitourinary Genitourinary Comment(s): Voiding clear breonna urine. - Integumentary Integumentary Comment(s): Skin is warm and dry. No clubbing or cyanosis is present. No rash or abnormal pigmentation is present. Left chest pigtail catheter remains in place with dressing seen dry and intact. - Neurologic Neurologic: Present: CNII-XII intact - Musculoskeletal Musculoskeletal: Present: gait normal, strength equal bilaterally - Psychiatric Psychiatric: Present: A&O x's 3, appropriate affect, intact judgment & insight - Allied health notes Allied health notes reviewed: nursing - Labs CBC & Chem 7: 11/23/19 07:37 11/23/19 07:37 Labs: Abnormal Lab Results - Last 24 Hours (Table) 11/22/19 11/22/19 11/23/19 Range/Units 11:51 20:43 06:51 WBC (3.8-10.6) k/uL RBC (4.30-5.90) m/uL Hgb (13.0-17.5) gm/dL Hct (39.0-53.0) % Plt Count (150-450) k/uL Neutrophils # (1.3-7.7) k/uL BUN (9-20) mg/dL Glucose (74-99) mg/dL POC Glucose (mg/dL) 167 H 138 H 195 H (75-99) mg/dL Calcium (8.4-10.2) mg/dL 11/23/19 11/23/19 Range/Units 07:37 07:37 WBC 10.8 H (3.8-10.6) k/uL RBC 3.26 L (4.30-5.90) m/uL Hgb 10.2 L (13.0-17.5) gm/dL Hct 31.6 L (39.0-53.0) % Plt Count 682 H (150-450) k/uL Neutrophils # 8.7 H (1.3-7.7) k/uL BUN 7 L (9-20) mg/dL Glucose 195 H (74-99) mg/dL POC Glucose (mg/dL) (75-99) mg/dL Calcium 7.7 L (8.4-10.2) mg/dL - Imaging and Cardiology Chest x-ray: report reviewed, image reviewed Assessment and Plan Assessment: 1. Left-sided pleural effusion, status post placement of left chest pigtail catheter performed by interventional radiology 2. Influenza A 3. Left lower lobe pneumonia 4. Diabetes mellitus type 2 5. Remote history of tobacco abuse Plan: 1. Keep left chest pigtail catheter in place to low continuous wall suction -20 cm H2O. Continue to record accurate I&O. No alteplase will be instilled through the pigtail catheter today. 2. Continue to encourage use of his incentive spirometry every hour while awake. 3. Encourage continued smoking cessation. 4. Bronchodilators per pulmonary medicine management. 5. Antibiotic management per infectious disease. 6. Medical management and other comorbidities per primary care service. 7. Continue to monitor daily chest x-rays. 8. We will repeat a computed tomography scan of his chest today with contrast to reevaluate his left pleural effusion. 9. More recommendations to follow based on patient's clinical course. Time with Patient: Greater than 30
[2019-11-23 11:28] LABS: Glucose,Whole Blood 218 mg/dL (75-99)
--- NOTE | 2019-11-23 12:42 | CT ---
EXAMINATION TYPE: CT chest w con DATE OF EXAM: 11/23/2019 COMPARISON: 11/17/2019 HISTORY: Lt Pleural Effusion CT DLP: 433 mGycm, Automated exposure control for dose reduction was used. CONTRAST: Performed injected with 100 mL of Isovue 300. TECHNIQUE: Axial images were obtained at 5 mm thick sections. Reconstructed images are reviewed on [employer] computer in the coronal plane. FINDINGS: Portion of the thyroid visualized is normal. There is a small left pleural effusion. Empyema should be considered. There is air within the pleural fluid. Catheter is present which may have introduced the air. There is a consolidation containing small air pockets which could be related to cavitation of a mass or infection along lateral left lower lobe. COMPARISON: The consolidation is diminished over the interval. The cavitation was present previously. Fluid on the left is diminished. The air within the fluid on the left is new as is the catheter. Pretracheal and left peribronchial lymphadenopathy is present. The Ascending aorta diameter at the l evel of the main pulmonary artery is 4.0 cm. The main pulmonary artery diameter at the bifurcation i s 3.1 cm. Coronary artery calcification is present. Limited CT sections are obtained through the upper abdomen. Abdomen is essentially unremarkable. IMPRESSIONS: 1. Improving consolidation left lower lobe. Cavitation and consolidation remain present. Infectious e tiology is favored. Neoplasm is not excluded. 2. Diminished left pleural fluid collection now contains air post catheter placement.
--- NOTE | 2019-11-23 14:13 | PN ---
PROGRESS NOTE Patient was seen again on 11/23/2019. He has been hemodynamically stable and is complaining of mild shortness of breath with some mild chest pain. On physical exam, his vitals were stable. His chest reveals decreased breath sounds on the left, but more air entry compared to a few days ago. He continues to have aesthetic chest tube. Cardiovascular system reveals an S1, S2. Abdomen is soft. There is no edema. IMPRESSION: 1. Left-sided empyema. Continue chest tube. 2. Continue IV antibiotics. May consider Augmentin upon discharge. May benefit from decortication if his lung does not completely expand. His prognosis is fair. MMODL / IJN: [id number] /
[2019-11-23 16:50] LABS: Glucose,Whole Blood 197 mg/dL (75-99)
--- NOTE | 2019-11-23 16:52 | PN ---
PROGRESS NOTE CHIEF COMPLAINT: Bronchial pneumonia with left empyema. HISTORY OF PRESENT ILLNESS: This gentleman is coming along fairly well. Thoracic Surgery is still irrigating the wound and hope that he will be able to be discharged in another two or three days. PHYSICAL EXAMINATION: Breath sounds are diminished on the left side, but otherwise are fairly clear. the cardiac exam is normal. The abdomen is soft and nontender. IMPRESSION: 1. Bronchial pneumonia. 2. Left empyema. 3. Diabetes. PLAN: Continue with IV fluids and antibiotics and irrigation of the empyema until the catheter can be removed. MMODL / IJN: [id number] /
[2019-11-23] MEDS: guaiFENesin 600 MG TABLET.ER PO PRN (17:04)
[2019-11-23] MEDS: ACETAMINOPHEN TAB 325 MG TAB PO PRN (17:04)
--- NOTE | 2019-11-23 17:49 | PN ---
PROGRESS NOTE DATE OF SERVICE: 11/22/2019 CHIEF COMPLAINT: Pneumonitis and empyema. HISTORY OF PRESENT ILLNESS: This gentleman is feeling a little bit better and doing better. Antibiotics are still being infused into the empyema. PHYSICAL EXAMINATION: He is afebrile. Chest is improving each day with fewer rhonchi. Cardiac exam is normal. IMPRESSION: Bilateral bronchopneumonia with empyema on the left. PLAN: Continue with updrafts, antibiotics intravenously and through the catheter. The plan is that he will stay in the hospital as long as the catheter is in place delivering the antibiotics to the left chest cavity. MMODL / IJN: [id number] /
[2019-11-23 20:14] LABS: Glucose,Whole Blood 186 mg/dL (75-99)
[2019-11-23] MEDS: guaiFENesin-Coden 100-10MG/5ML 10 ML CUP PO PRN (20:43)
[2019-11-23] MEDS: ATORVASTATIN 20 MG TAB PO SCH (20:44)
[2019-11-23] MEDS: SODIUM CHLORIDE 0.9% 1,000 ML IV SCH (20:49)
--- NOTE | 2019-11-23 21:52 | PN ---
PROGRESS NOTE DATE OF SERVICE: 11/23/2019 REASON FOR FOLLOWUP: Left-sided pneumonia and empyema. INTERVAL HISTORY: The patient is currently afebrile, has been breathing comfortably. The patient said his chest pain has decreased in intensity. He is still having some cough but decreased intensity. No nausea, no vomiting. No abdominal pain or diarrhea. PHYSICAL EXAMINATION: Blood pressure 124/60 with a pulse of 70, temperature 98.2. He is 94% on room air. General description is a middle-aged male lying in bed in no distress. RESPIRATORY SYSTEM: Unlabored breathing with decreased breath sounds at the left base. No wheeze. HEART: S1, S2. Regular rate and rhythm. ABDOMEN: Soft. No tenderness. LABS/IMAGING: Hemoglobin is 10.1, white count 10.8. BUN of 7, creatinine 0.76. Cultures remain negative so far. CT of the chest this morning did show some improvement. DIAGNOSTIC IMPRESSION AND PLAN: Patient with left-sided pneumonia with parapneumonic effusion and pain, status post chest tube placement. CT did show some improvement. The patient is covered with Unasyn; to continue and will monitor his clinical course closely. Continue with supportive care. MMODL / IJN: [id number] /
[2019-11-24] MEDS: guaiFENesin-Coden 100-10MG/5ML 10 ML CUP PO PRN ×2 (00:41→06:14)
[2019-11-24] MEDS: AMPICILLIN-SULBACTAM 3 GM in SODIUM CHLORIDE 0.9% 100 ML IVPB SCH ×5 (00:42→23:09)
[2019-11-24] MEDS: IBUPROFEN 400 MG TAB PO PRN ×2 (06:14→14:58)
[2019-11-24 07:11] LABS: Glucose,Whole Blood 142 mg/dL (75-99)
[2019-11-24] MEDS: INSULIN NPH 300 UNIT/3 ML VIAL SQ SCH ×2 (07:18→17:43)
[2019-11-24] MEDS: INSULIN ASPART (NovoLOG) 100 UNIT/ML VIAL SQ SCH ×4 (07:18→20:29)
[2019-11-24] MEDS: LISINOPRIL 20 MG TAB PO SCH ×2 (08:06→09:30)
[2019-11-24] MEDS: ASPIRIN 81 MG PO SCH (08:06)
[2019-11-24] MEDS: HEPARIN SODIUM,PORCINE 5,000 UNIT/ML 1 ML VIAL SQ SCH ×2 (08:06→20:41)
[2019-11-24] MEDS: PANTOPRAZOLE 40 MG TABLET PO SCH (08:06)
--- NOTE | 2019-11-24 08:19 | XR ---
EXAMINATION TYPE: XR chest 1V portable DATE OF EXAM: 11/24/2019 CLINICAL HISTORY: Difficulty breathing and left-sided pleural effusion progress study. TECHNIQUE: Single AP portable upright view of the chest is obtained. COMPARISON: Chest x-ray and CT chest from one day earlier. FINDINGS: Overlying sternal wires and mediastinal clips are redemonstrated. Persistent left basilar pigtail pleural drainage catheter. Persistent left mid to lower lung opacity corresponding to small s ize nonsimple left pleural fluid collection with associated areas of left lung of groundglass opacity , consolidation, and felt abscess formation. Some left-sided volume loss. 2 remain present. Cardiac s ilhouette size is stable and mildly enlarged. Right lung remains clear. Osseous structures are intact . IMPRESSION: Overall stable findings, persistent small left nonsimple pleural fluid collection despit e basilar pigtail pleural drainage catheter. Persistent left mid to lower lung areas of infiltrate wi th areas of consolidation and cavitation redemonstrated.
[2019-11-24 08:39] LABS: Basophils % (A) 0 %; Eosinophils # (A) 0.1 k/uL (0-0.7); Eosinophils % (A) 1 %; HCT 30.2 % (39.0-53.0); HGB 9.7 gm/dL (13.0-17.5); Lymphocytes # (A) 0.7 k/uL (1.0-4.8); Lymphocytes % (A) 7 %; MCH 31.1 pg (25.0-35.0); MCHC 32.2 g/dL (31.0-37.0); MCV 96.7 fL (80.0-100.0); Mean Platelet Volume 7.1; Monocytes # (A) 0.3 k/uL (0-1.0); Monocytes % (A) 4 %; Neutrophils # (A) 8.2 k/uL (1.3-7.7); Neutrophils % (A) 86 %; Platelet Count 729 k/uL (150-450); RBC 3.13 m/uL (4.30-5.90); RDW 13.2 % (11.5-15.5); WBC 9.6 k/uL (3.8-10.6)
[2019-11-24] MEDS: BUDESONIDE 0.5 MG/2 ML NEBU INHALATION SCH ×2 (09:02→20:22)
[2019-11-24] MEDS: IPRATROPIUM-ALBUTEROL 3 ML NEB INHALATION PRN ×2 (09:02→12:09)
--- NOTE | 2019-11-24 09:34 | P.PN ---
Subjective Progress Note Date: 11/24/19 Principal diagnosis: Left-sided pleural effusion, left lower lobe pneumonia, influenza A. Past medical history significant for diabetes mellitus type 2, eye disorder and a remote history of tobacco abuse. POD #6 placement of left chest pigtail catheter placed by interventional radiology. The patient is laying in bed on the fourth floor medical surgical unit. He is in no acute distress. He denies any complaints of pain or shortness of breath at this time. The patient continues to clinically look much improved and he reports he is feeling much better on a daily basis. His CBC results show a WBC count of 9.6 today, and hemoglobin 9.7. His left pleural pigtail catheter remains in place to low continuous wall suction -20 cm H2O. No air leak is present and no drainage output within the last 24 hours. He remains afebrile the last 24 hours and continues on Unasyn for antibiotic coverage managed by infectious disease. His chest x-ray this morning demonstrates overall stable findings with persistent small left non-simple pleural fluid collection, persistent left mid to lower lung areas of infiltrate with areas of consolidation and cavitation. No further complaints of diarrhea or abdominal discomfort. Objective - Vital Signs Vital signs: Vital Signs Temp 98.2 F 11/24/19 08:10 Pulse 84 11/24/19 09:19 Resp 18 11/24/19 08:10 BP 95/52 11/24/19 08:10 Pulse Ox 95 11/24/19 08:10 Intake & Output 11/23/19 11/24/19 11/24/19 18:59 06:59 18:59 Output Total 525 Balance -525 Weight 69 kg Output: Urine 525 Other: Voiding Method Toilet Toilet Toilet Urinal # Voids 1 # Bowel Movements 1 2 - Constitutional General appearance: Present: cooperative, no acute distress, obese - Respiratory Details: Lung sounds with few scattered rhonchi throughout, diminished to his left lower lobe. Respirations are symmetrical and nonlabored. Oxygen saturation are 95% on room air. He is achieving 8104-9086 mL on his incentive spirometry. Left chest pleural pigtail catheter remains in place to low continuous wall suction - 20 cm H2O. No drainage is present and no air leak is present. - Cardiovascular Details: Regular rhythm and rate. S1 and S2 present, negative for S3, gallop or murmur. - Gastrointestinal Gastrointestinal Comment(s): Abdomen soft, nontender and nondistended. Active bowel sounds present in all 4 abdominal quadrants. No guarding or rigidity. No organomegaly. Tolerating oral intake. - Genitourinary Genitourinary Comment(s): Voiding clear yellow urine. - Integumentary Integumentary Comment(s): Skin is warm and dry. No clubbing or cyanosis is present. Dressing is clean and dry to his left pigtail insertion site. - Neurologic Neurologic: Present: CNII-XII intact - Musculoskeletal Musculoskeletal: Present: gait normal, strength equal bilaterally - Psychiatric Psychiatric: Present: A&O x's 3, appropriate affect, intact judgment & insight - Allied health notes Allied health notes reviewed: nursing - Labs CBC & Chem 7: 11/24/19 08:01 11/23/19 07:37 Labs: Abnormal Lab Results - Last 24 Hours (Table) 11/23/19 11/23/19 11/23/19 Range/Units 11:27 16:48 20:08 RBC (4.30-5.90) m/uL Hgb (13.0-17.5) gm/dL Hct (39.0-53.0) % Plt Count (150-450) k/uL Neutrophils # (1.3-7.7) k/uL Lymphocytes # (1.0-4.8) k/uL POC Glucose (mg/dL) 218 H 197 H 186 H (75-99) mg/dL 11/24/19 11/24/19 Range/Units 07:08 08:01 RBC 3.13 L (4.30-5.90) m/uL Hgb 9.7 L (13.0-17.5) gm/dL Hct 30.2 L (39.0-53.0) % Plt Count 729 H (150-450) k/uL Neutrophils # 8.2 H (1.3-7.7) k/uL Lymphocytes # 0.7 L (1.0-4.8) k/uL POC Glucose (mg/dL) 142 H (75-99) mg/dL - Imaging and Cardiology Chest x-ray: report reviewed, image reviewed CT scan - chest: report reviewed, image reviewed Assessment and Plan Assessment: 1. Left-sided pleural effusion, status post placement of left chest pigtail catheter performed by interventional radiology 2. Influenza A 3. Left lower lobe pneumonia 4. Diabetes mellitus type 2 5. Remote history of tobacco abuse Plan: 1. We will discontinue his left chest pigtail catheter today. 2. Continue to encourage use of his incentive spirometry every hour while awake. 3. Encourage continued smoking cessation. 4. Bronchodilators per pulmonary medicine management. 5. Antibiotic management per infectious disease. 6. Medical management and other comorbidities per primary care service. 7. The patient is okay to be discharged when okay with primary care service and infectious disease. He will need several weeks of antibiotics on an outpatient basis. If his x-ray does not improve after the course of antibiotics he may require a left VATS with decortication. 9. We will continue to follow the patient on when necessary basis, please call with any further concerns. Time with Patient: Greater than 30
[2019-11-24 11:43] LABS: Glucose,Whole Blood 101 mg/dL (75-99)
[2019-11-24] MEDS: SODIUM CHLORIDE 0.9% 1,000 ML IV SCH (11:57)
--- NOTE | 2019-11-24 12:15 | PN ---
PROGRESS NOTE CHIEF COMPLAINT: Pneumonitis with left empyema. HISTORY OF PRESENT ILLNESS: This gentleman is doing fairly well. Thoracic surgery plans on removing the catheter from the left chest and he will be able to be returned to long term. He will require a PICC line placement before he leaves for 6 more weeks of antibiotics. PHYSICAL EXAMINATION: Breath sounds are improved, but they are still diminished on the left. Cardiac exam is normal. IMPRESSION: 1. Pneumonitis. 2. Left-sided empyema. PLAN: 1. Catheter is to be removed today or tomorrow. 2. Place PICC line for 6 more weeks of outpatient antibiotic therapy and then discharge back to the long term. MMODL / IJN: [id number] /
--- NOTE | 2019-11-24 13:30 | PN ---
PROGRESS NOTE DATE OF SERVICE: 11/24/2019 REASON FOR FOLLOWUP: Left-sided pneumonia and empyema. INTERVAL HISTORY: The patient is currently afebrile. Patient has been breathing comfortably. Patient's chest tube has been discontinued. Minimal cough. No nausea, no vomiting. No abdominal pain. No diarrhea. PHYSICAL EXAMINATION: Blood pressure is 142/62 with a pulse of 74, temperature 98.2. General description is a middle-aged male lying in bed in no distress. RESPIRATORY SYSTEM: Unlabored breathing, decreased breath sounds at the bases. No wheeze. HEART: S1, S2. Regular rate and rhythm. ABDOMEN: Soft, no tenderness. LABS: Hemoglobin 9.7, white count 9.6, BUN of 7, creatinine 0.76. Chest x-ray this morning did show small left side pleural fluid with areas of consolidation and cavitation re-demonstrated. DIAGNOSTIC IMPRESSION AND PLAN: Patient with left-sided pneumonia and empyema, status post chest tube. The patient culture remains to be negative. He is on IV Unasyn. Ideally would have benefited from continuation of IV antibiotic for a couple of weeks; however, the patient is currently incarcerated and PICC line is a no go at that facility, may transition him to oral Augmentin and monitor his clinical course closely. MMODL / IJN: [id number] /
[2019-11-24] MEDS: guaiFENesin 600 MG TABLET.ER PO PRN (14:56)
[2019-11-24 15:24] LABS: Prothrombin Time 10.6 sec (9.0-12.0)
[2019-11-24 16:53] LABS: Glucose,Whole Blood 117 mg/dL (75-99)
--- NOTE | 2019-11-24 17:00 | PN ---
PROGRESS NOTE DATE OF SERVICE: 11/24/2019 This patient has been hemodynamically stable. He is less short of breath. He has had his chest tube removed. On physical examination, blood pressure is 142/62, respiratory rate of 18, pulse rate 66, temperature 98.2. Oxygen saturation on room air is 95%. HEENT is unremarkable. Chest reveals decreased breath sounds on the left but fair air entry. Cardiovascular system reveals an S1, S2. Abdomen is soft. There is no edema. IMPRESSION AT THIS TIME: 1. Left-sided empyema. 2. Diabetes mellitus, type 2. Continue antibiotics per ID. Continue incentive spirometry. Increase his activity level. His prognosis is fair. MMODL / IJN: [id number] /
[2019-11-24 17:39] LABS: Glucose,Whole Blood 104 mg/dL (75-99)
[2019-11-24 20:11] LABS: Glucose,Whole Blood 52 mg/dL (75-99)
[2019-11-24 20:36] LABS: Glucose,Whole Blood 50 mg/dL (75-99)
[2019-11-24] MEDS: ATORVASTATIN 20 MG TAB PO SCH (20:41)
[2019-11-24 21:11] LABS: Glucose,Whole Blood 86 mg/dL (75-99)
[2019-11-24 23:01] LABS: Glucose,Whole Blood 58 mg/dL (75-99)
[2019-11-24 23:29] LABS: Glucose,Whole Blood 58 mg/dL (75-99)
[2019-11-24 23:58] LABS: Glucose,Whole Blood 137 mg/dL (75-99)
[2019-11-25] MEDS: guaiFENesin-Coden 100-10MG/5ML 10 ML CUP PO PRN ×2 (00:44→08:25)
[2019-11-25] MEDS: AMPICILLIN-SULBACTAM 3 GM in SODIUM CHLORIDE 0.9% 100 ML IVPB SCH ×4 (05:31→23:10)
[2019-11-25 06:50] LABS: Glucose,Whole Blood 248 mg/dL (75-99)
[2019-11-25] MEDS: BUDESONIDE 0.5 MG/2 ML NEBU INHALATION SCH ×2 (07:54→19:50)
[2019-11-25] MEDS: IPRATROPIUM-ALBUTEROL 3 ML NEB INHALATION PRN ×4 (07:54→19:50)
[2019-11-25] MEDS: ACETAMINOPHEN TAB 325 MG TAB PO PRN (08:25)
[2019-11-25] MEDS: INSULIN NPH 300 UNIT/3 ML VIAL SQ SCH ×2 (08:26→18:18)
[2019-11-25] MEDS: PANTOPRAZOLE 40 MG TABLET PO SCH (08:26)
[2019-11-25] MEDS: INSULIN ASPART (NovoLOG) 100 UNIT/ML VIAL SQ SCH ×4 (08:26→23:10)
[2019-11-25] MEDS: LISINOPRIL 20 MG TAB PO SCH (09:35)
[2019-11-25] MEDS: ASPIRIN 81 MG PO SCH (09:35)
[2019-11-25] MEDS: HEPARIN SODIUM,PORCINE 5,000 UNIT/ML 1 ML VIAL SQ SCH ×2 (09:35→20:02)
[2019-11-25 11:43] LABS: Glucose,Whole Blood 137 mg/dL (75-99)
--- NOTE | 2019-11-25 12:24 | PN ---
PROGRESS NOTE DATE OF SERVICE: 11/25/2019 He has been hemodynamically stable. He has some shortness of breath. His IS is about a 1000. He has some pain on the left side of his chest. On physical examination, respiratory rate is 18, pulse rate of 76, temperature 102 degrees Fahrenheit, O2 saturation on room air is 93%. HEENT reveals pupils that are equal. Chest reveals diminished breath sounds on the left. Cardiovascular system reveals an S1, S2. Abdomen is soft. There is no pedal edema. IMPRESSION: 1. Left-sided empyema for which he may benefit from decortication. #. 2. Fever, which may be due to the fact that his chest tube has been removed. At this point in time, would continue IV Unasyn. Continue incentive spirometry. Continue to control his blood sugars. His prognosis is guarded. MMAMINTAL / IJN: [id number] /
[2019-11-25 12:38] LABS: Basophils % (A) 0 %; Eosinophils % (A) 1 %; HCT 29.8 % (39.0-53.0); HGB 9.7 gm/dL (13.0-17.5); Lymphocytes # (A) 1.3 k/uL (1.0-4.8); Lymphocytes % (A) 15 %; MCH 31.5 pg (25.0-35.0); MCHC 32.7 g/dL (31.0-37.0); MCV 96.5 fL (80.0-100.0); Mean Platelet Volume 7.1; Monocytes # (A) 0.5 k/uL (0-1.0); Monocytes % (A) 5 %; Neutrophils # (A) 6.7 k/uL (1.3-7.7); Neutrophils % (A) 77 %; Platelet Count 675 k/uL (150-450); RBC 3.09 m/uL (4.30-5.90); RDW 13.1 % (11.5-15.5); WBC 8.7 k/uL (3.8-10.6)
--- NOTE | 2019-11-25 15:51 | PN ---
PROGRESS NOTE CHIEF COMPLAINT: Pneumonitis with left empyema. HISTORY OF PRESENT ILLNESS: This gentleman is doing well, but he is complaining of a frequent cough, which should be expected. Catheter is out of the left chest and he is awaiting a PICC line. Once that is placed, he can return to the [facility]. PHYSICAL EXAMINATION: He has somewhat decreased breath sounds and scattered rales and rhonchi at the left base. Cardiac exam is normal. Abdomen is soft, nontender. IMPRESSION: Bronchopneumonia with left empyema. PLAN: Await PICC line to allow him to receive outpatient antibiotics. MMODL / IJN: [id number] /
--- NOTE | 2019-11-25 15:57 | PN ---
PROGRESS NOTE DATE OF SERVICE: 11/25/2019 REASON FOR FOLLOWUP: Left-sided pneumonia and empyema. INTERVAL HISTORY: The patient did spike a fever of 102 degrees Fahrenheit this morning, of which I was not notified. No culture has been done. The patient, though, is also breathing comfortably. Denies having any worsening chest pain. Breathing has improved. Occasional cough. No vomiting or any diarrhea. PHYSICAL EXAMINATION: Blood pressure is 136/80 with a pulse of 76, temperature 102. He is 93% on room air. General description is a middle-aged male lying in bed in no distress. RESPIRATORY SYSTEM: Unlabored breathing with decreased breath sounds at the base. No wheeze. HEART: S1, S2. Regular rate and rhythm. ABDOMEN: Soft. No tenderness. LABS: Hemoglobin 9.7, white count 8.7. DIAGNOSTIC IMPRESSION AND PLAN: Patient with left-sided pneumonia with a parapneumonic effusion and empyema, status post chest tube and has been discontinued, now with a new fever, which is concerning. Blood culture has been repeated. Will repeat his chest x-ray. PICC line has been ordered. Currently on Unasyn; to continue and we will monitor the patient's course closely. MMODL / IJN: [id number] /
--- NOTE | 2019-11-25 16:33 | IR ---
EXAMINATION TYPE: IR cvc insert >=5 years DATE OF EXAM: 11/25/2019 COMPARISON: NONE CLINICAL HISTORY: Infection Needs long-term intravenous access for antibiotics. PROCEDURE: Hand hygiene obtained with soap and water and alcohol-based hand rub. After informed consent, the skin overlying the left basilic vein was localized with ultrasound and no tariq to be compressible and patent. An ultrasound image was obtained and submitted on the patient's c elizabeth. The overlying skin was prepped and draped and Lidocaine was used for local anesthesia. A skin clemencia was made with a scalpel. Access was gained to the vein under ultrasound guidance with a 21 gau ge needle and a 0.018 inch wire was advanced. Access site was dilated with Peel-Away sheath and cath eter tailored to the appropriate length and advanced such that the distal tip is at the cavoatrial ju nction. Spot image was obtained verifying placement. Catheter was fixed to the skin and a sterile d ressing was placed following hemostasis. Catheter was aspirated and flushed with saline. Patient wa s discharged in stable condition without complication.Maximal barrier technique is utilized. Ultraso und image is documented on the chart. Ultrasound used with sterile technique. Fluoro time and fluoroscopic images submitted to document procedure: 14 intraoperative C-arm images, 0.2 minutes fluoroscopy time IMPRESSION: STATUS POST ULTRASOUND AND FLUOROSCOPIC GUIDED PICC LINE PLACEMENT, READY FOR USE. THIS PROCEDURE WAS PERFORMED BY THE UNDERSIGNED.
[2019-11-25 16:40] LABS: Glucose,Whole Blood 198 mg/dL (75-99)
[2019-11-25] MEDS: guaiFENesin 600 MG TABLET.ER PO PRN (20:01)
[2019-11-25] MEDS: ATORVASTATIN 20 MG TAB PO SCH (20:01)
[2019-11-25] MEDS: SODIUM CHLORIDE 0.9% 1,000 ML IV SCH (20:03)
[2019-11-25 20:45] LABS: Glucose,Whole Blood 192 mg/dL (75-99)
[2019-11-25 23:08] LABS: Glucose,Whole Blood 205 mg/dL (75-99)
[2019-11-26] MEDS: ACETAMINOPHEN TAB 325 MG TAB PO PRN (02:25)
[2019-11-26] MEDS: AMPICILLIN-SULBACTAM 3 GM in SODIUM CHLORIDE 0.9% 100 ML IVPB SCH ×3 (05:40→17:14)
[2019-11-26 06:58] LABS: Glucose,Whole Blood 169 mg/dL (75-99)
[2019-11-26] MEDS: INSULIN ASPART (NovoLOG) 100 UNIT/ML VIAL SQ SCH ×4 (07:25→20:28)
[2019-11-26] MEDS: PANTOPRAZOLE 40 MG TABLET PO SCH (07:26)
[2019-11-26] MEDS: HEPARIN SODIUM,PORCINE 5,000 UNIT/ML 1 ML VIAL SQ SCH ×2 (07:26→20:30)
[2019-11-26] MEDS: INSULIN NPH 300 UNIT/3 ML VIAL SQ SCH ×2 (07:26→17:13)
[2019-11-26] MEDS: ASPIRIN 81 MG PO SCH (07:26)
[2019-11-26] MEDS: LISINOPRIL 20 MG TAB PO SCH (07:26)
--- NOTE | 2019-11-26 07:41 | XR ---
EXAMINATION TYPE: XR chest 1V portable DATE OF EXAM: 11/26/2019 HISTORY: febrile, cough. REFERENCE: Previous study dated 11/24/2019. FINDINGS: There has been a midline sternotomy. Left pleural drain has been removed. There continues t o be some left basilar airspace disease but this has improved. There is a small left effusion. The he art is not enlarged. IMPRESSION: IMPROVED AERATION, LEFT LUNG BASE.
[2019-11-26] MEDS: IPRATROPIUM-ALBUTEROL 3 ML NEB INHALATION PRN ×3 (07:53→15:32)
[2019-11-26] MEDS: BUDESONIDE 0.5 MG/2 ML NEBU INHALATION SCH ×2 (07:53→19:11)
[2019-11-26 11:39] LABS: Glucose,Whole Blood 233 mg/dL (75-99)
--- NOTE | 2019-11-26 12:07 | PN ---
PROGRESS NOTE CHIEF COMPLAINT: Pneumonitis with left pleural effusion. HISTORY OF PRESENT ILLNESS: This gentleman is doing well. He is feeling better and coughing less. He is not short of breath and he is not running a fever. PICC line was placed. PHYSICAL EXAMINATION: Chest is clearing and he has fewer rales and rhonchi. Cardiac exam is normal. IMPRESSION: Bilateral bronchial pneumonia with left-sided empyema-resolving. PLAN: Probably back to the [facility] Thursday. MMODL / IJN: [id number] /
--- NOTE | 2019-11-26 14:52 | PN ---
PROGRESS NOTE DATE OF SERVICE: 11/26/2019. REASON FOR FOLLOWUP: Left-sided pneumonia and empyema. INTERVAL HISTORY: The patient did spike another fever of 101.4 degrees Fahrenheit early this morning with fever yesterday morning as well. The patient is breathing comfortably. Denies having any chest pain. Cough decreased in intensity. No nausea, no vomiting. No abdominal pain. Did have some diarrhea. PHYSICAL EXAMINATION: Blood pressure 152/77 with a pulse of 68, temperature 98. He is 97% on room air. General description is middle-aged male lying in bed in no distress. RESPIRATORY SYSTEM: Unlabored breathing, decreased breath sounds in the bases. No wheeze. HEART: S1, S2. Regular rate and rhythm. ABDOMEN: Soft, no tenderness. LABS: Stool for C difficile came back negative. Influenza repeat is negative as well. Chest x-ray this morning improve aeration left lung base. DIAGNOSTIC IMPRESSION AND PLAN: Patient with left-sided pneumonia in this patient status post chest tube and Alteplase infusion. After removal of the chest tube, the patient is spiking a fever on a daily basis, concerning for empyema that may need to be drained further. CT will be repeated. Currently Unasyn to continue. Blood culture repeated, and monitor the clinical course closely. MMODL / IJN: [id number] /
--- NOTE | 2019-11-26 15:59 | CT ---
EXAMINATION TYPE: CT chest wo con DATE OF EXAM: 11/26/2019 COMPARISON: 11/23/2019 HISTORY: Fever, empyema. CT DLP: 391.2 mGycm, Automated exposure control for dose reduction was used. CONTRAST: Performed injected with 0 mL of . TECHNIQUE: Axial images were obtained at 5 mm thick sections. Reconstructed images are reviewed on [employer] computer in the coronal plane. FINDINGS: Portion of the thyroid visualized is normal. There is a cavitation within the posterior lateral left lung smaller cavitations within the density o f the inferior posterior lateral lung. Findings are compatible with the empyema present previously. C avitation has enlarged over the interval. Air-fluid level is present. Small masslike area in the post erior lateral inferior left lung measures 2.9 cm which is essentially stable. There is a 1.6 cm lymph node in the pretracheal space which is enlarging. Smaller aortopulmonic wind ow and pretracheal lymphadenopathy remain present. Note is made of some coronary artery calcification . The ascending aorta diameter at the level of the main pulmonary artery is 4.1 cm. The main pulmonar y artery diameter at the bifurcation is 3.4 cm. Measurements are less distinct without intravenous co ntrast. Limited CT sections are obtained through the upper abdomen. Abdomen is essentially unremarkable. IMPRESSIONS: 1. Stable 2.9 cm posterior lateral left lower lobe density with internal cavitation. 2. Enlarging extra-axial air collection with an air-fluid level in the left posterior lateral lung co mpatible with previous empyema.
[2019-11-26 16:55] LABS: Glucose,Whole Blood 275 mg/dL (75-99)
[2019-11-26] MEDS: guaiFENesin-Coden 100-10MG/5ML 10 ML CUP PO PRN (20:30)
[2019-11-26] MEDS: ATORVASTATIN 20 MG TAB PO SCH (20:30)
[2019-11-26] MEDS: SODIUM CHLORIDE 0.9% 1,000 ML IV SCH (20:35)
[2019-11-26 20:44] LABS: Glucose,Whole Blood 231 mg/dL (75-99)
[2019-11-27] MEDS: AMPICILLIN-SULBACTAM 3 GM in SODIUM CHLORIDE 0.9% 100 ML IVPB SCH ×4 (00:15→17:18)
[2019-11-27 07:17] LABS: Glucose,Whole Blood 126 mg/dL (75-99)
[2019-11-27] MEDS: IPRATROPIUM-ALBUTEROL 3 ML NEB INHALATION PRN ×2 (07:35→11:15)
[2019-11-27] MEDS: BUDESONIDE 0.5 MG/2 ML NEBU INHALATION SCH ×2 (07:35→18:50)
[2019-11-27] MEDS: INSULIN ASPART (NovoLOG) 100 UNIT/ML VIAL SQ SCH ×4 (08:03→21:24)
[2019-11-27] MEDS: guaiFENesin-Coden 100-10MG/5ML 10 ML CUP PO PRN ×2 (08:05→23:37)
[2019-11-27] MEDS: INSULIN NPH 300 UNIT/3 ML VIAL SQ SCH ×2 (08:05→17:18)
[2019-11-27] MEDS: PANTOPRAZOLE 40 MG TABLET PO SCH (08:06)
[2019-11-27] MEDS: ASPIRIN 81 MG PO SCH (08:06)
[2019-11-27] MEDS: HEPARIN SODIUM,PORCINE 5,000 UNIT/ML 1 ML VIAL SQ SCH ×2 (08:06→21:24)
[2019-11-27] MEDS: LISINOPRIL 20 MG TAB PO SCH (08:06)
[2019-11-27 11:48] LABS: Glucose,Whole Blood 173 mg/dL (75-99)
--- NOTE | 2019-11-27 13:25 | PN ---
PROGRESS NOTE CHIEF COMPLAINT: Pneumonitis and left empyema. HISTORY OF PRESENT ILLNESS: This gentleman continues to do well. He has had no new complaints. He has been afebrile. PHYSICAL EXAMINATION: Breath sounds are greatly improved over when he came in. He is not having any chills, fever, etc. and his cough is reduced. Cardiac exam is normal. Abdomen is soft, nontender. IMPRESSION: 1. Bronchial pneumonia with left empyema. 2. Diabetes. PLAN: Probably back to [facility] tomorrow. MMODL / IJN: [id number] /
--- NOTE | 2019-11-27 14:53 | P.PN ---
Subjective Progress Note Date: 11/26/19 Principal diagnosis: Left-sided pleural effusion, status post left-sided chest tube placement, left lower lobe pneumonia, influenza A, diabetes mellitus, tobacco abuse and possible COPD 11/26/2019, patient seen eval examined labs reviewed medications reviewed, breathing relatively more comfortably, last computed tomography scan back in 11/26/2019 reviewed stable 3 cm posterior lateral density of left lower lobe with interval cavitation along with fluid loculated pocket Objective - Vital Signs Vital signs: Vital Signs Temp 98.0 F 11/26/19 07:00 Pulse 84 11/26/19 15:43 Resp 17 11/26/19 08:00 BP 152/77 11/26/19 07:00 Pulse Ox 93 L 11/26/19 07:56 Intake & Output 11/26/19 11/26/19 11/27/19 06:59 18:59 06:59 Output Total 850 Balance -850 Output: Urine 850 Other: Voiding Method Toilet # Voids 1 # Bowel Movements 7 1 - Exam Constitutional General appearance: Present: cooperative, no acute distress, obese - Respiratory Details: Lung sounds with few scattered rhonchi throughout, diminished to his left lower lobe. Respirations are symmetrical and nonlabored. Oxygen saturation are 95% on room air. He is achieving 9722-1859 mL on his incentive spirometry. Left chest pleural pigtail catheter remains in place to low continuous wall suction - 20 cm H2O. No drainage is present and no air leak is present. - Cardiovascular Details: Regular rhythm and rate. S1 and S2 present, negative for S3, gallop or murmur. - Gastrointestinal Gastrointestinal Comment(s): Abdomen soft, nontender and nondistended. Active bowel sounds present in all 4 abdominal quadrants. No guarding or rigidity. No organomegaly. Tolerating oral intake. - Genitourinary Genitourinary Comment(s): Voiding clear yellow urine. - Integumentary Integumentary Comment(s): Skin is warm and dry. No clubbing or cyanosis is present. Dressing is clean and dry to his left pigtail insertion site. - Neurologic Neurologic: Present: CNII-XII intact - Musculoskeletal Musculoskeletal: Present: gait normal, strength equal bilaterally - Psychiatric Psychiatric: Present: A&O x's 3, appropriate affect, intact judgment & insight - Labs CBC & Chem 7: 11/25/19 12:22 11/23/19 07:37 Labs: Abnormal Lab Results - Last 24 Hours (Table) 11/25/19 11/25/19 11/26/19 Range/Units 20:37 23:06 06:56 POC Glucose (mg/dL) 192 H 205 H 169 H (75-99) mg/dL 11/26/19 11/26/19 Range/Units 11:36 16:54 POC Glucose (mg/dL) 233 H 275 H (75-99) mg/dL Microbiology - Last 24 Hours (Table) 11/25/19 12:22 Blood Culture - Preliminary Blood No Growth after 24 hours Assessment and Plan Assessment: Left-sided pleural effusion, status post placement of left chest pigtail catheter performed by interventional radiology Influenza A Left lower lobe pneumonia Diabetes mellitus type 2 Remote history of tobacco abuse Plan: Continue antibiotics as per recommendation infectious disease services Left-sided chest U has been discontinued Continue bronchodilators DC as planned Time with Patient: Greater than 30
--- NOTE | 2019-11-27 14:55 | P.PN ---
Subjective Progress Note Date: 11/27/19 Principal diagnosis: Left-sided pleural effusion, status post left-sided chest tube placement, left lower lobe pneumonia, influenza A, diabetes mellitus, tobacco abuse and possible COPD [facility] 2019, patient seen eval examined during the rounds, labs reviewed medications reviewed, radiographic studies including CAT scan reviewed, patient is being planned for discharge ID to recommend broad-spectrum long-term antibiotics and I can be switched to oral 11/26/2019, patient seen eval examined labs reviewed medications reviewed, breathing relatively more comfortably, last computed tomography scan back in 11/26/2019 reviewed stable 3 cm posterior lateral density of left lower lobe with interval cavitation along with fluid loculated pocket Objective - Vital Signs Vital signs: Vital Signs Temp 98.7 F 11/27/19 07:00 Pulse 84 11/27/19 11:27 Resp 17 11/27/19 07:50 BP 145/84 11/27/19 07:00 Pulse Ox 95 11/27/19 07:00 Intake & Output 11/26/19 11/27/19 11/27/19 18:59 06:59 18:59 Intake Total 620 Output Total 450 Balance 170 Intake: Intake, IV Titration 160 Amount Ampicillin-Sulbactam 3 gm 100 In Sodium Chloride 0.9% 100 ml @ 200 mls/hr IVPB Q6HR [facility] Rx#:[id number] Sodium Chloride 0.9% 1, 60 000 ml @ 20 mls/hr IV . Q24H [facility] Rx#:[id number] Oral 460 Output: Urine 450 Other: Voiding Method Toilet Toilet Toilet # Voids 1 2 # Bowel Movements 1 3 - Exam Constitutional General appearance: Present: cooperative, no acute distress, obese - Respiratory Details: Lung sounds with few scattered rhonchi throughout, diminished to his left lower lobe. Respirations are symmetrical and nonlabored. Oxygen saturation are 95% on room air. He is achieving 4279-0224 mL on his incentive spirometry. Left chest pleural pigtail catheter remains in place to low continuous wall suction - 20 cm H2O. No drainage is present and no air leak is present. - Cardiovascular Details: Regular rhythm and rate. S1 and S2 present, negative for S3, gallop or murmur. - Gastrointestinal Gastrointestinal Comment(s): Abdomen soft, nontender and nondistended. Active bowel sounds present in all 4 abdominal quadrants. No guarding or rigidity. No organomegaly. Tolerating oral intake. - Genitourinary Genitourinary Comment(s): Voiding clear yellow urine. - Integumentary Integumentary Comment(s): Skin is warm and dry. No clubbing or cyanosis is present. Dressing is clean and dry to his left pigtail insertion site. - Neurologic Neurologic: Present: CNII-XII intact - Musculoskeletal Musculoskeletal: Present: gait normal, strength equal bilaterally - Psychiatric Psychiatric: Present: A&O x's 3, appropriate affect, intact judgment & insight - Labs CBC & Chem 7: 11/25/19 12:22 11/23/19 07:37 Labs: Abnormal Lab Results - Last 24 Hours (Table) 11/26/19 11/26/19 11/27/19 Range/Units 16:54 20:21 07:16 POC Glucose (mg/dL) 275 H 231 H 126 H (75-99) mg/dL 11/27/19 Range/Units 11:47 POC Glucose (mg/dL) 173 H (75-99) mg/dL Microbiology - Last 24 Hours (Table) 11/25/19 12:22 Blood Culture - Preliminary Blood No Growth after 48 hours Assessment and Plan Assessment: Left-sided pleural effusion, status post placement of left chest pigtail catheter performed by interventional radiology Influenza A Left lower lobe pneumonia Diabetes mellitus type 2 Remote history of tobacco abuse Plan: Continue antibiotics as per recommendation infectious disease services Left-sided chest U has been discontinued Continue bronchodilators DC as planned Time with Patient: Greater than 30
[2019-11-27 17:17] LABS: Glucose,Whole Blood 170 mg/dL (75-99)
[2019-11-27] MEDS: CHOLESTYRAMINE (WITH SUGAR) 4 GM PACKET PO SCH (17:18)
--- NOTE | 2019-11-27 18:19 | PN ---
PROGRESS NOTE DATE OF SERVICE: 11/27/2019 REASON FOR FOLLOW UP: Left sided pneumonia empyema. INTERVAL HISTORY: The patient is currently afebrile. No fever has been recorded in the last 24 hours. The patient is breathing comfortably. Denies any chest pain. Occasional cough. No nausea, no abdominal pain. No vomiting or diarrhea. About four loose stools. PHYSICAL EXAMINATION: Blood pressure 145/84 with a pulse of 64. Temperature 98.5. He is 95% on room air. General description is a middle-aged male up in the bed in no distress. Respiratory system: Unlabored breathing, decreased breath sounds in the bases. No wheeze. Heart S1, S2. Regular rate and rhythm. Abdomen soft, no tenderness. LABS: No new labs have been obtained today. DIAGNOSTIC IMPRESSION AND PLAN: 1. Patient with left sided pneumonia with parapneumonic effusion in this patient now with fever with concern for possible . CT will be reviewed with radiologist. Currently on Zosyn, to be continued. 2. Patient diarrhea for C-dif has been negative. We will add Questran for symptomatic relief. Continue supportive care. MMODL / IJN: [id number] /
[2019-11-27 20:11] LABS: Glucose,Whole Blood 149 mg/dL (75-99)
[2019-11-27] MEDS: ATORVASTATIN 20 MG TAB PO SCH (21:24)
[2019-11-28] MEDS: AMPICILLIN-SULBACTAM 3 GM in SODIUM CHLORIDE 0.9% 100 ML IVPB SCH ×5 (00:18→23:47)
[2019-11-28] MEDS: SODIUM CHLORIDE 0.9% 1,000 ML IV SCH (04:45)
[2019-11-28 07:14] LABS: Glucose,Whole Blood 125 mg/dL (75-99)
[2019-11-28 07:17] LABS: Basophils % (A) 1 %; Eosinophils # (A) 0.1 k/uL (0-0.7); Eosinophils % (A) 1 %; HCT 30.9 % (39.0-53.0); HGB 9.7 gm/dL (13.0-17.5); Lymphocytes # (A) 1.1 k/uL (1.0-4.8); Lymphocytes % (A) 15 %; MCH 30.3 pg (25.0-35.0); MCHC 31.3 g/dL (31.0-37.0); Mean Platelet Volume 7.1; Monocytes # (A) 0.5 k/uL (0-1.0); Monocytes % (A) 6 %; Neutrophils # (A) 5.7 k/uL (1.3-7.7); Neutrophils % (A) 76 %; Platelet Count 709 k/uL (150-450); RBC 3.19 m/uL (4.30-5.90); RDW 13.1 % (11.5-15.5); WBC 7.5 k/uL (3.8-10.6)
[2019-11-28 07:26] LABS: African American GFR (CKD) >90 (>60 ml/min/1.73 sqM); Anion Gap 8 mmol/L; Blood Urea Nitrogen 5 mg/dL (9-20); Calcium 8.3 mg/dL (8.4-10.2); Carbon Dioxide 26 mmol/L (22-30); Chloride 103 mmol/L (98-107); Glucose 120 mg/dL (74-99); Non-African American GFR(CKD) >90 (>60 ml/min/1.73 sqM); Potassium 4.5 mmol/L (3.5-5.1); Sodium 137 mmol/L (137-145)
[2019-11-28] MEDS: INSULIN ASPART (NovoLOG) 100 UNIT/ML VIAL SQ SCH ×4 (07:47→21:33)
[2019-11-28] MEDS: BUDESONIDE 0.5 MG/2 ML NEBU INHALATION SCH ×2 (08:06→21:39)
[2019-11-28] MEDS: IPRATROPIUM-ALBUTEROL 3 ML NEB INHALATION PRN ×2 (08:06→21:39)
[2019-11-28 08:08] LABS: C Reactive Protein 143.9 mg/L (<10.0)
[2019-11-28] MEDS: HEPARIN SODIUM,PORCINE 5,000 UNIT/ML 1 ML VIAL SQ SCH ×2 (08:57→21:33)
[2019-11-28] MEDS: PANTOPRAZOLE 40 MG TABLET PO SCH (08:57)
[2019-11-28] MEDS: LISINOPRIL 20 MG TAB PO SCH (08:57)
[2019-11-28] MEDS: CHOLESTYRAMINE (WITH SUGAR) 4 GM PACKET PO SCH ×2 (08:57→17:54)
[2019-11-28] MEDS: INSULIN NPH 300 UNIT/3 ML VIAL SQ SCH ×2 (08:57→17:54)
[2019-11-28] MEDS: ASPIRIN 81 MG PO SCH (08:57)
[2019-11-28 11:38] LABS: Glucose,Whole Blood 203 mg/dL (75-99)
--- NOTE | 2019-11-28 12:09 | PN ---
PROGRESS NOTE DATE OF SERVICE: 11/28/2019. REASON FOR FOLLOWUP: Left-sided pneumonia and empyema. INTERVAL HISTORY: The patient is currently afebrile, has been feeling better. Breathing comfortably. The patient denies having any chest pain. The cough has decreased in intensity, mostly dry in nature. No nausea, no vomiting. No abdominal pain, no diarrhea. PHYSICAL EXAMINATION: Blood pressure is 137/75 with a pulse of 76, temperature 98.5. He is 96% in room air. General description is a middle-aged male up in the bed in no distress. RESPIRATORY SYSTEM: Unlabored breathing. Decreased breath sounds at the left base. No wheeze. HEART: S1, S2. Regular rate and rhythm. ABDOMEN: Soft, no tenderness. LABS: Hemoglobin 9.7, white count 7.5. BUN of 5, creatinine 0.90. DIAGNOSTIC IMPRESSION AND PLAN: Patient with left-sided pneumonia and empyema, status post chest tube and Alteplase. The patient is currently afebrile for more than 48 hours now, to continue with Unasyn 3 grams q.8 hours in the outpatient setting for 4 weeks. Weekly monitor CBC, BMP and sedimentation rate and close outpatient followup. MMODL / IJN: [id number] /
[2019-11-28 16:40] LABS: Glucose,Whole Blood 110 mg/dL (75-99)
[2019-11-28 20:38] LABS: Glucose,Whole Blood 182 mg/dL (75-99)
[2019-11-28] MEDS: ATORVASTATIN 20 MG TAB PO SCH (21:33)
--- NOTE | 2019-11-28 22:47 | PN ---
PROGRESS NOTE DATE OF SERVICE: 11/28/2019 This patient has some chest pain and mild shortness of breath. On physical examination, respiratory rate is 17, pulse rate 68, temperature 98.6, blood pressure 120/65. HEENT is unremarkable. Chest reveals decreased breath sounds on the left with some scattered rhonchi. Cardiovascular system is in S1, S2. Abdomen is soft. There is no pedal edema. IMPRESSION AT THIS TIME: 1. Left-sided empyema. 2. Pneumonia. Continue Unasyn 3 grams q.8 in the outpatient setting for 4 weeks. His prognosis is fair. MMODL / IJN: [id number] /
[2019-11-29] MEDS: AMPICILLIN-SULBACTAM 3 GM in SODIUM CHLORIDE 0.9% 100 ML IVPB SCH (05:30)
[2019-11-29 07:00] LABS: Glucose,Whole Blood 117 mg/dL (75-99)
[2019-11-29] MEDS: INSULIN ASPART (NovoLOG) 100 UNIT/ML VIAL SQ SCH (07:13)
--- NOTE | 2019-11-29 07:24 | DS ---
DISCHARGE SUMMARY CHIEF COMPLAINT: Pneumonitis and sepsis. HISTORY OF PRESENT ILLNESS AND PHYSICAL EXAM: Details of this man's history and physical can be found in the initial workup. LABORATORY STUDIES: While he was in a hospital he had laboratory studies, details of which can be found in the laboratory section of his chart. COURSE IN THE HOSPITAL: After admission, he was placed on bedrest, started on intravenous fluids, updrafts and antibiotics. Blood sugars lorene and these were managed. His pneumonia continued to worsen and developed an effusion on the left side. This eventually had to be tapped with a thoracentesis, which was unsuccessful. This was then surgically opened and was found to have an empyema. A pigtail catheter was placed for several days with antibiotic irrigation and eventually it was able to be removed. He then continued to improve and he was doing well enough that it was felt that he could be discharged back to the long term on the . FINAL DIAGNOSES: 1. Bilateral bronchial pneumonia. 2. Uncontrolled diabetes mellitus. 3. Left-sided empyema. OPERATIONS: Attempted thoracentesis and drainage of empyema. CONSULTATIONS: Infectious Disease and Pulmonology. He is improved. MMODL / IJN: [id number] /
[2019-11-29] MEDS: INSULIN NPH 300 UNIT/3 ML VIAL SQ SCH (07:26)
[2019-11-29] MEDS: PANTOPRAZOLE 40 MG TABLET PO SCH (07:26)
[2019-11-29 07:59] VITALS: BP 135/67; RESP 17; TEMP 98.6
[2019-11-29] MEDS: LISINOPRIL 20 MG TAB PO SCH (08:00)
[2019-11-29] MEDS: ASPIRIN 81 MG PO SCH (08:00)
[2019-11-29] MEDS: HEPARIN SODIUM,PORCINE 5,000 UNIT/ML 1 ML VIAL SQ SCH (08:00)
[2019-11-29] MEDS: CHOLESTYRAMINE (WITH SUGAR) 4 GM PACKET PO SCH (08:00)
[2019-11-29] MEDS: SODIUM CHLORIDE 0.9% 1,000 ML IV SCH (08:05)
[2019-11-29] MEDS: IPRATROPIUM-ALBUTEROL 3 ML NEB INHALATION PRN (09:18)
[2019-11-29] MEDS: BUDESONIDE 0.5 MG/2 ML NEBU INHALATION SCH (09:18)
[2019-11-29 09:34] VITALS: PULSE 80
--- NOTE | 2019-11-29 12:03 | PN ---
PROGRESS NOTE CHIEF COMPLAINT: Pneumonitis with empyema. HISTORY OF PRESENT ILLNESS: This gentleman is doing well and was discharged yesterday. I am not sure why he is still in the hospital, but apparently he is going to alf today. PHYSICAL EXAMINATION: Chest is quite clear. Cardiac exam is normal. Abdomen is soft, nontender. IMPRESSION: 1. Bronchopneumonia. 2. Left pleural effusion. 3. Insulin-dependent diabetes mellitus. PLAN: Discharge today. MMODL / IJN: [id number] /
== END 2019-11-29 10:32 | disposition home or self-care (01) | DRG 871 ==
LOC: EC 21:40 → EEVIPCON 23:44 → 4SSUR 23:44
PROVIDERS: ADMIT Family Medicine; ATTEND Family Medicine
PROC: 0W9B30Z Drainage of Left Pleural Cavity with Drainage Device, Percutaneous Approach (ICD-10-PCS; principal; 2019-11-16)
PROC: 3E03317 Introduction of Other Thrombolytic into Peripheral Vein, Percutaneous Approach (ICD-10-PCS; 2019-11-19)
PROC: 02HV33Z Insertion of Infusion Device into Superior Vena Cava, Percutaneous Approach (ICD-10-PCS; 2019-11-25)
DX: A41.9 Sepsis, unspecified organism (principal); J10.08 Influenza due to other identified influenza virus with other specified pneumonia; J86.9 Pyothorax without fistula; J91.8 Pleural effusion in other conditions classified elsewhere; K56.7 Ileus, unspecified; N17.9 Acute kidney failure, unspecified; R04.2 Hemoptysis; E11.65 Type 2 diabetes mellitus with hyperglycemia; I10 Essential (primary) hypertension; H26.9 Unspecified cataract; J44.9 Chronic obstructive pulmonary disease, unspecified; R55 Syncope and collapse; H54.3 Unqualified visual loss, both eyes; K08.409 Partial loss of teeth, unspecified cause, unspecified class; E66.9 Obesity, unspecified; Z68.25 Body mass index [BMI] 25.0-25.9, adult; Z79.4 Long term (current) use of insulin; Z79.82 Long term (current) use of aspirin; Z79.899 Other long term (current) drug therapy; Z87.891 Personal history of nicotine dependence; Z95.2 Presence of prosthetic heart valve; Z90.49 Acquired absence of other specified parts of digestive tract; Z87.01 Personal history of pneumonia (recurrent)
CPT/HCPCS: 32551; 32555; 36415; 36573; 71045; 71046; 71250; 71260; 71270; 71275; 74019; 76604; 76942; 80048; 80053; 81001; 82042; 82945; 83036; 83605; 83615; 83735; 84100; 84157; 84484; 85025; 85610; 85730; 86140; 87040; 87070; 87102; 87116; 87205; 87206; 87324; 87502; 88108; 88305; 89050; 93005; 94640; 94760; 96361; 96365; 96368; 99285

== ENCOUNTER 2019-12-15 11:28 | Emergency (ER) | payer OTHER ==
[2019-12-15 11:33] VITALS: BP 147/89; PULSE 75; RESP 18; TEMP 98.1
--- NOTE | 2019-12-15 11:48 | ED ---
General Adult HPI - General Chief complaint: Recheck/Abnormal Lab/Rx Stated complaint: Clogged picc line Source: police Mode of arrival: wheelchair Limitations: no limitations - History of Present Illness Initial comments: The patient is a 64-year-old male with past medical history of pneumonia and diabetes who presents emergency department for evaluation of his PICC line. He was recently hospital is at her facility for pneumonia. He has a PICC line in place for which she has been getting Zosyn 4 times a day. The nurse attempted to administer the antibiotics this morning when she met resistance with his PICC line. She was unable to draw or flush off of it. Because of this they did bring the patient to the emergency room. He does not speak much Turkmen. Denies any pain at the site. There is no surrounding redness or swelling. The patient has not had any fevers or chills. He continues to have a persistent cough which is not worsened. No issues with respiratory distress. There are no other alleviating, precipitating or modifying factors - Related Data Home Medications Medication Instructions Recorded Confirmed Aspirin EC [Ecotrin Low Dose] 81 mg PO DAILY 11/13/19 11/13/19 Insulin NPH Human Isophane 15 unit SQ BID 11/13/19 11/13/19 [humuLIN N] Omeprazole 20 mg PO DAILY 11/13/19 11/13/19 Previous Rx's Medication Instructions Recorded Ampicillin-Sulbactam [Unasyn] 3 gm IVPB Q6HR #1 vial 11/28/19 Lisinopril [Zestril] 40 mg PO DAILY #30 tab 11/28/19 Allergies Allergy/AdvReac Type Severity Reaction Status Date / Time No Known Allergies Allergy Verified 12/15/19 11:33 Review of Systems ROS Statement: Those systems with pertinent positive or pertinent negative responses have been documented in the HPI. ROS Other: All systems not noted in ROS Statement are negative. Past Medical History Past Medical History: Diabetes Mellitus, Eye Disorder, Pneumonia Additional Past Medical History / Comment(s): cataracts unable to see with his left eye and only able to see shapes peripherally in the right eye, no teeth on top and missing a few on the bottom. History of Any Multi-Drug Resistant Organisms: None Reported Past Surgical History: Appendectomy, Cardiac Valve Replacement, Orthopedic Surgery Additional Past Surgical History / Comment(s): appendix removed in 1991, heart valve replaced in 2013, and elbow surgery in 2014. Past Anesthesia/Blood Transfusion Reactions: No Reported Reaction Past Psychological History: No Psychological Hx Reported Smoking Status: Former smoker Past Alcohol Use History: None Reported Past Drug Use History: None Reported - Past Family History Father History Unknown: Yes Mother History Unknown: Yes General Exam Limitations: no limitations Course Vital Signs 12/15/19 11:30 Temperature 98.1 F Pulse Rate 75 Respiratory 18 Rate Blood Pressure 147/89 O2 Sat by Pulse 98 Oximetry Medical Decision Making - Medical Decision Making Upon arrival the patient is placed in room 20. A thorough history and physical exam was performed. We did use a flush with some resistance and were able to flush the line. If we are able to draw blood off the line as well without any resistance. The patient denies any pain. There is no infiltration around the site. At this time the patient will be discharged back to shelter. He is to r esume his antibiotics as previously directed. Follow up with his doctor in 2-4 days. Return to the ER for any new worsening symptoms. The patient was discharged home in stable condition Disposition Clinical Impression: Occluded PICC line Disposition: HOME SELF-CARE Condition: Stable Instructions (If sedation given, give patient instructions): How to Flush Your PICC or Midline Catheter (ED) Additional Instructions: Please resume your antibiotics as directed. Follow up with your primary care doctor. Return to the emergency department for any new or worsening symptoms Is patient prescribed a controlled substance at d/c from ED?: No Referrals: None,Stated [Primary Care Provider] - 1-2 days Time of Disposition: 11:48
== END 2019-12-15 11:58 | disposition home or self-care (01) ==
LOC: EC 11:28
DX: T82.898A Other specified complication of vascular prosthetic devices, implants and grafts, initial encounter (principal); E11.36 Type 2 diabetes mellitus with diabetic cataract; H26.9 Unspecified cataract; Z79.82 Long term (current) use of aspirin; Z79.4 Long term (current) use of insulin; Z79.899 Other long term (current) drug therapy; Z87.891 Personal history of nicotine dependence; Z95.2 Presence of prosthetic heart valve
CPT/HCPCS: 99283

== ENCOUNTER 2019-12-20 19:18 | Emergency (ER) | payer OTHER ==
[2019-12-20 19:26] VITALS: TEMP 98
[2019-12-20] MEDS ORDERED: SODIUM CHLORIDE 0.9% 500 ML 500 ML IV STA (19:41)
[2019-12-20] MEDS ORDERED: ASPIRIN 81 MG PO STA (19:44)
--- NOTE | 2019-12-20 20:02 | ED ---
General Adult HPI - General Chief complaint: Upper Respiratory Infection Stated complaint: Abnormal Labs Time Seen by Provider: 12/20/19 19:27 Source: patient, police, RN notes reviewed, old records reviewed Mode of arrival: ambulatory Limitations: physical limitation - History of Present Illness Initial comments: 54-year-old male patient past history significant for diabetes presents to ED for evaluation. Patient just today completed a 6 week course of Unasyn for an empyema which was surgically drained by interventional radiology on 11/18. Patient was sent from correction today because he reportedly continues to have a productive cough with some shortness of breath. Pt CRP was found be elevated. Patient does complain of some mild left-sided chest pain. Denies any other complaints at this time. Systemic: Pt denies fatigue, fever/chills, rash. Pt denies weakness, night sweats, weight loss. Neuro: Pt denies headache, visual disturbances, syncope or pre-syncope. HEENT: Pt denies ocular discharge or irritation, otalgia, rhinorrhea, pharyngitis or notable lymphadenopathy. Cardiopulmonary: Pt denies heart palpitations, dyspnea on exertion. Abdominal/GI: Pt denies abdominal pain, n/v/d. : Pt denies dysuria, burning w/ urination, frequency/urgency. Denies new onset urinary or bowel incontinence. MSK: Pt denies myalgia, loss of strength or function in extremities. Neuro: Pt denies new onset weakness, paresthesias. - Related Data Home Medications Medication Instructions Recorded Confirmed Aspirin EC [Ecotrin Low Dose] 81 mg PO DAILY 11/13/19 11/13/19 Insulin NPH Human Isophane 15 unit SQ BID 11/13/19 11/13/19 [humuLIN N] Omeprazole 20 mg PO DAILY 11/13/19 11/13/19 Previous Rx's Medication Instructions Recorded Ampicillin-Sulbactam [Unasyn] 3 gm IVPB Q6HR #1 vial 11/28/19 Lisinopril [Zestril] 40 mg PO DAILY #30 tab 11/28/19 Allergies Allergy/AdvReac Type Severity Reaction Status Date / Time No Known Allergies Allergy Verified 12/20/19 19:26 Review of Systems ROS Statement: Those systems with pertinent positive or pertinent negative responses have been documented in the HPI. ROS Other: All systems not noted in ROS Statement are negative. Past Medical History Past Medical History: Diabetes Mellitus, Eye Disorder, Pneumonia Additional Past Medical History / Comment(s): cataracts unable to see with his left eye and only able to see shapes peripherally in the right eye, no teeth on top and missing a few on the bottom. History of Any Multi-Drug Resistant Organisms: None Reported Past Surgical History: Appendectomy, Cardiac Valve Replacement, Orthopedic Surgery Additional Past Surgical History / Comment(s): appendix removed in 1991, heart valve replaced in 2013, and elbow surgery in 2014. Past Anesthesia/Blood Transfusion Reactions: No Reported Reaction Past Psychological History: No Psychological Hx Reported Smoking Status: Former smoker Past Alcohol Use History: None Reported Past Drug Use History: None Reported - Past Family History Father History Unknown: Yes Mother History Unknown: Yes General Exam - General Exam Comments Initial Comments: Constitutional: NAD, AOX3, Pt has pleasant affect. HEENT: NC/AT, trachea midline, neck supple, no lymphadenopathy. Posterior pharynx non erythematous, without exudates. External ears appear normal, without discharge. Mucous membranes moist. Eyes PERRLA, EOM intact. There is no scleral icterus. No pallor noted. Cardiopulmonary: RRR, no murmurs, rubs or gallops, no JVD noted. Lungs CTAB in anterior and posterior guaman. No peripheral edema. Abdominal exam: Abdomen soft and non-distended. Abdomen non-tender to palpation in all 4 quadrants. Bowel sounds active in LLQ. No hepatosplenomegaly. No ecchymosis Neuro: CN II-XII grossly intact. No nuchal rigidity. No raccon eyes, no burt sign, no hemotympanum. No cervical spinal tenderness. MSK: No posterior calf tenderness bilaterally, homans sign negative bilaterally. Posterior tibialis and radial pulse +2 bilaterally. Sensation intact in upper and lower extremities. Full active ROM in upper and lower extremities, 5/5 stregnth. Limitations: physical limitation Course Vital Signs 12/20/19 12/20/19 12/20/19 19:23 20:00 20:30 Temperature 98.0 F Pulse Rate 75 70 69 Respiratory 20 18 24 Rate Blood Pressure 127/70 93/65 116/71 O2 Sat by Pulse 98 98 97 Oximetry 12/20/19 12/20/19 12/20/19 21:00 21:30 22:00 Temperature Pulse Rate 68 71 73 Respiratory 29 H 27 H 12 Rate Blood Pressure 116/71 119/83 125/73 O2 Sat by Pulse 96 97 98 Oximetry 12/20/19 22:30 Temperature Pulse Rate 69 Respiratory 11 L Rate Blood Pressure 146/90 O2 Sat by Pulse 97 Oximetry Medical Decision Making - Medical Decision Making 54-year-old male patient past history significant for diabetes presents to ED for evaluation. Patient just today completed a 6 week course of Unasyn for an empyema which was surgically drained by interventional radiology on 11/18. Patient was sent from correction today because he reportedly continues to have a productive cough with some shortness of breath. Pt CRP was found be elevated. Patient does complain of some mild left-sided chest pain. Denies any other complaints at this time. Patient will symptoms are stable, afebrile. Physical exam didn't display acute pathology. Laboratory investigations were obtained, and are non-impressive. EKG is nonischemic. Troponin is negative 2. CT pulmonary angiography was obtained, this did display interval reaccumulation of fluid in the patient's left lower lobe cavity. Consistent with patient's history of empyema. Patient is coughing however is displaying no signs of systemic infection. Also, within normal limits, no fever, no other acute laboratory abnormalities are noted. Upon reevaluation patient denies any com plaints. Patient discharged to follow up with primary care provider and return to ER if condition worsens. Case discussed with Dr. Gonzalez. - Lab Data Result diagrams: 12/20/19 20:08 12/20/19 20:08 Lab Results 12/20/19 12/20/19 12/20/19 Range/Units 20:08 20:08 20:08 WBC 6.9 (3.8-10.6) k/uL RBC 3.61 L (4.30-5.90) m/uL Hgb 11.0 L (13.0-17.5) gm/dL Hct 32.6 L (39.0-53.0) % MCV 90.2 D (80.0-100.0) fL MCH 30.4 (25.0-35.0) pg MCHC 33.7 (31.0-37.0) g/dL RDW 13.4 (11.5-15.5) % Plt Count 458 H (150-450) k/uL Neutrophils % 55 % Lymphocytes % 33 % Monocytes % 7 % Eosinophils % 2 % Basophils % 1 % Neutrophils # 3.8 (1.3-7.7) k/uL Lymphocytes # 2.3 (1.0-4.8) k/uL Monocytes # 0.5 (0-1.0) k/uL Eosinophils # 0.1 (0-0.7) k/uL Basophils # 0.0 (0-0.2) k/uL PT 10.4 (9.0-12.0) sec INR 1.0 (<1.2) APTT 25.6 (22.0-30.0) sec Sodium 138 (137-145) mmol/L Potassium 3.9 (3.5-5.1) mmol/L Chloride 100 (98-107) mmol/L Carbon Dioxide 28 (22-30) mmol/L Anion Gap 10 mmol/L BUN 11 (9-20) mg/dL Creatinine 0.72 (0.66-1.25) mg/dL Est GFR (CKD-EPI)AfAm >90 (>60 ml/min/1.73 sqM) Est GFR (CKD-EPI)NonAf >90 (>60 ml/min/1.73 sqM) Glucose 276 H (74-99) mg/dL Plasma Lactic Acid Luis (0.7-2.0) mmol/L Calcium 8.7 (8.4-10.2) mg/dL Magnesium 1.8 (1.6-2.3) mg/dL Total Bilirubin 0.4 (0.2-1.3) mg/dL AST 25 (17-59) U/L ALT 27 (4-49) U/L Alkaline Phosphatase 196 H (38-126) U/L Troponin I (0.000-0.034) ng/mL Total Protein 7.5 (6.3-8.2) g/dL Albumin 3.8 (3.5-5.0) g/dL 12/20/19 12/20/19 12/20/19 Range/Units 20:08 20:08 22:34 WBC (3.8-10.6) k/uL RBC (4.30-5.90) m/uL Hgb (13.0-17.5) gm/dL Hct (39.0-53.0) % MCV (80.0-100.0) fL MCH (25.0-35.0) pg MCHC (31.0-37.0) g/dL RDW (11.5-15.5) % Plt Count (150-450) k/uL Neutrophils % % Lymphocytes % % Monocytes % % Eosinophils % % Basophils % % Neutrophils # (1.3-7.7) k/uL Lymphocytes # (1.0-4.8) k/uL Monocytes # (0-1.0) k/uL Eosinophils # (0-0.7) k/uL Basophils # (0-0.2) k/uL PT (9.0-12.0) sec INR (<1.2) APTT (22.0-30.0) sec Sodium (137-145) mmol/L Potassium (3.5-5.1) mmol/L Chloride (98-107) mmol/L Carbon Dioxide (22-30) mmol/L Anion Gap mmol/L BUN (9-20) mg/dL Creatinine (0.66-1.25) mg/dL Est GFR (CKD-EPI)AfAm (>60 ml/min/1.73 sqM) Est GFR (CKD-EPI)NonAf (>60 ml/min/1.73 sqM) Glucose (74-99) mg/dL Plasma Lactic Acid Luis 1.8 (0.7-2.0) mmol/L Calcium (8.4-10.2) mg/dL Magnesium (1.6-2.3) mg/dL Total Bilirubin (0.2-1.3) mg/dL AST (17-59) U/L ALT (4-49) U/L Alkaline Phosphatase (38-126) U/L Troponin I <0.012 <0.012 (0.000-0.034) ng/mL Total Protein (6.3-8.2) g/dL Albumin (3.5-5.0) g/dL - EKG Data -: EKG Interpreted by Me (and Dr. Gonzalez) EKG Comments: Ventricular rate 69, IA interval 166, QRS 70, QT/QTC 91841. No sensory rhythm, no ST elevations or depressions are noted. No concern for acute ischemia. Disposition Clinical Impression: Chest pain, Cough Disposition: HOME SELF-CARE Condition: Stable Instructions (If sedation given, give patient instructions): Acute Cough (ED) Additional Instructions: Follow up with PCP tomorrow. Return to ED if condition worsens in anyway. Is patient prescribed a controlled substance at d/c from ED?: No Referrals: None,Stated [Primary Care Provider] - 1-2 days
[2019-12-20 20:23] LABS: Basophils % (A) 1 %; Eosinophils # (A) 0.1 k/uL (0-0.7); Eosinophils % (A) 2 %; HCT 32.6 % (39.0-53.0); Lymphocytes # (A) 2.3 k/uL (1.0-4.8); Lymphocytes % (A) 33 %; MCH 30.4 pg (25.0-35.0); MCHC 33.7 g/dL (31.0-37.0); Monocytes # (A) 0.5 k/uL (0-1.0); Monocytes % (A) 7 %; Neutrophils # (A) 3.8 k/uL (1.3-7.7); Neutrophils % (A) 55 %; Platelet Count 458 k/uL (150-450); RBC 3.61 m/uL (4.30-5.90); RDW 13.4 % (11.5-15.5); WBC 6.9 k/uL (3.8-10.6)
[2019-12-20 20:24] LABS: MCV 90.2 fL (80.0-100.0)
[2019-12-20 20:27] LABS: ALT 27 U/L (4-49); AST 25 U/L (17-59); African American GFR (CKD) >90 (>60 ml/min/1.73 sqM); Albumin 3.8 g/dL (3.5-5.0); Alkaline Phosphatase 196 U/L (38-126); Anion Gap 10 mmol/L; Blood Urea Nitrogen 11 mg/dL (9-20); Calcium 8.7 mg/dL (8.4-10.2); Carbon Dioxide 28 mmol/L (22-30); Chloride 100 mmol/L (98-107); Glucose 276 mg/dL (74-99); Magnesium 1.8 mg/dL (1.6-2.3); Non-African American GFR(CKD) >90 (>60 ml/min/1.73 sqM); Potassium 3.9 mmol/L (3.5-5.1); Sodium 138 mmol/L (137-145); Total Bilirubin 0.4 mg/dL (0.2-1.3); Total Protein 7.5 g/dL (6.3-8.2)
[2019-12-20 20:28] LABS: Partial Thromboplastin Time 25.6 sec (22.0-30.0); Prothrombin Time 10.4 sec (9.0-12.0)
--- NOTE | 2019-12-20 20:33 | XR ---
EXAMINATION TYPE: XR chest 2V DATE OF EXAM: 12/20/2019 COMPARISON: Prior chest x-ray and chest CT 11/26/2019 HISTORY: Chest pain and shortness of breath, cough TECHNIQUE: Frontal and lateral views of the chest are obtained. FINDINGS: Patient is post median sternotomy. Left-sided PICC line is in place, distal tip is coursing to the level of the cavoatrial junction. There is chronic pleural reaction present at the left lung base. There is no focal air space opacity, pleural effusion, or pneumothorax seen. The cardiac silho uette size is within normal limits. The osseous structures are intact. IMPRESSION: Patient with known findings of empyema and prior CT.
[2019-12-20] MEDS ORDERED: SODIUM CHLORIDE 0.9% 500 ML 500 ML IV ONE (20:58)
--- NOTE | 2019-12-20 21:42 | CT ---
EXAMINATION TYPE: CT chest angio for PE DATE OF EXAM: 12/20/2019 COMPARISON: CT chest 11/26/2019 HISTORY: Cough, chest pain and shortness of breath. CT DLP: 410.5 mGycm Automated exposure control for dose reduction was used. CONTRAST: CT Chest for pulmonary embolism performed with with IV Contrast, patient injected with 100ml mL of Is ovue 370. FINDINGS: LUNGS: The lungs are grossly clear, there is no concerning parenchymal mass or nodule identified. T here is no pleural effusion or pneumothorax seen. The tracheobronchial tree is patent. MEDIASTINUM: There is satisfactory enhancement of the pulmonary artery and its branches, there is no CT evidence for pulmonary embolism. There are no greater than 1 cm hilar or mediastinal lymph nodes. Patient is post median sternotomy, there are coronary artery calcifications No pericardial effusion is seen. AORTA: No additional significant abnormality is seen. OTHER: There is been interval reaccumulation of fluid within the patient's left lower lobe cavity, t here is likely associated free, there is a thickened enhancing wall consistent with empyema, abnormal ity measures approximately 7.4 x 3.2 x 5 cm. Pleural thickening at the left lung base persists. Overa ll there is some improvement in aeration in the left lower lobe with some thickened parenchymal bands that persists. Left-sided PICC line is in place. IMPRESSION: Findings consistent with patient's history of empyema as described
[2019-12-20 23:39] VITALS: BP 119/94
[2019-12-21 00:05] VITALS: PULSE 68; RESP 10
== END 2019-12-21 00:10 | disposition home or self-care (01) ==
LOC: EC 19:18
DX: R07.9 Chest pain, unspecified (principal); R05 Cough; R06.02 Shortness of breath; R93.89 Abnormal findings on diagnostic imaging of other specified body structures; E11.9 Type 2 diabetes mellitus without complications; Z87.891 Personal history of nicotine dependence; Z79.4 Long term (current) use of insulin; Z79.82 Long term (current) use of aspirin; Z79.899 Other long term (current) drug therapy; Z87.01 Personal history of pneumonia (recurrent); Z87.09 Personal history of other diseases of the respiratory system; Z98.890 Other specified postprocedural states
CPT/HCPCS: 36415; 93005; 80053; 83605; 83735; 84484; 85025; 85610; 85730; 87040; 71046; 71275; 99285; 96360; 96361 ×2; Q9967

== ENCOUNTER 2020-01-09 11:11 | Emergency (ER) | payer OTHER ==
[2020-01-09 11:18] VITALS: RESP 18
[2020-01-09] MEDS ORDERED: SODIUM CHLORIDE 0.9% 1,000 ML IV STA (11:26)
--- NOTE | 2020-01-09 12:01 | ED ---
Abdominal Pain HPI - General Chief Complaint: Abdominal Pain Stated Complaint: dehydration/poss COVID Time Seen by Provider: 01/09/20 11:25 Source: patient, police Mode of arrival: wheelchair Limitations: language barrier - History of Present Illness Initial Comments: 54-year-old male patient presents to the emergency department today for evaluation of vomiting, diarrhea, cough, and abdominal pain. Patient is currently detained at the [facility] for suspected illegal immigration. Patient states that he has been coughing for a "while". Denies any sputum production. Denies any shortness of breath. Denies any known fever. States that he has been having vomiting and diarrhea over the last 2-3 days. States he is unable to keep down any food or fluids. Denies hematochezia, melena, or hematemesis. States that he has midepigastric pain that started as mild and has gradually worsened. Denies any radiation through to his back. Patient has had open heart surgery and appendectomy in the past. Patient denies any recent rash, chest pain, numbness, tingling, dizziness, weakness, hematuria, dysuria, urinary urgency, urinary frequency, headache, visual changes, or any other complaints. - Related Data Home Medications Medication Instructions Recorded Confirmed Aspirin EC [Ecotrin Low Dose] 81 mg PO DAILY 11/13/19 11/13/19 Insulin NPH Human Isophane 15 unit SQ BID 11/13/19 11/13/19 [humuLIN N] Omeprazole 20 mg PO DAILY 11/13/19 11/13/19 Previous Rx's Medication Instructions Recorded Ampicillin-Sulbactam [Unasyn] 3 gm IVPB Q6HR #1 vial 11/28/19 Lisinopril [Zestril] 40 mg PO DAILY #30 tab 11/28/19 Azithromycin 250 mg PO DAILY 4 Days #4 tab 01/09/20 Allergies Allergy/AdvReac Type Severity Reaction Status Date / Time No Known Allergies Allergy Verified 12/20/19 19:26 Review of Systems ROS Statement: Those systems with pertinent positive or pertinent negative responses have been documented in the HPI. ROS Other: All systems not noted in ROS Statement are negative. Past Medical History Past Medical History: Diabetes Mellitus, Eye Disorder, Pneumonia Additional Past Medical History / Comment(s): cataracts unable to see with his left eye and only able to see shapes peripherally in the right eye, no teeth on top and missing a few on the bottom. History of Any Multi-Drug Resistant Organisms: None Reported Past Surgical History: Appendectomy, Cardiac Valve Replacement, Orthopedic Surgery Additional Past Surgical History / Comment(s): appendix removed in 1991, heart valve replaced in 2013, and elbow surgery in 2014. Past Anesthesia/Blood Transfusion Reactions: No Reported Reaction Past Psychological History: No Psychological Hx Reported Smoking Status: Former smoker Past Alcohol Use History: None Reported Past Drug Use History: None Reported - Past Family History Father History Unknown: Yes Mother History Unknown: Yes General Exam Limitations: language barrier General appearance: alert, in no apparent distress, other (Physical well- developed, well-nourished adult male patient in no acute distress. Vital signs upon presentation are temperature 99.1F, pulse 65, respirations 18, blood pressure 91/58, pulse ox 97% on room air.) Eye exam: Present: normal appearance, PERRL, EOMI. Absent: scleral icterus, conjunctival injection, periorbital swelling ENT exam: Present: normal exam, normal oropharynx, mucous membranes moist Respiratory exam: Present: normal lung sounds bilaterally. Absent: respiratory distress, wheezes, rales, rhonchi, stridor Cardiovascular Exam: Present: regular rate, normal rhythm, normal heart sounds. Absent: systolic murmur, diastolic murmur, rubs, gallop, clicks GI/Abdominal exam: Present: soft, tenderness (midepigastric tenderness), normal bowel sounds. Absent: distended, guarding, rebound, rigid Neurological exam: Present: alert, oriented X3, CN II-XII intact Psychiatric exam: Present: normal affect, normal mood Skin exam: Present: warm, dry, intact, normal color. Absent: rash Course Vital Signs 01/09/20 01/09/20 01/09/20 11:13 12:26 13:14 Temperature 99.1 F 100.1 F H 98.4 F Pulse Rate 65 77 Respiratory 18 18 Rate Blood Pressure 91/58 118/74 O2 Sat by Pulse 97 97 Oximetry Medical Decision Making - Medical Decision Making 54-year-old male patient presented to the emergency department today for evaluation of vomiting, diarrhea, midepigastric pain. Patient also had a cough. He has been incarcerated at the [facility] for the last 2 months. Physical examination reveals clear equal lung sounds. There is some mild midepigastric tenderness noted. Labs reviewed and revealed normal white blood cell count, elevated lactic acid at 2.8, elevated alk phos, and positive Covid 19 test. Chest x-ray showed left midlung pneumonia most likely viral in nature given positive cocaine test a normal white blood cell count. Vital signs showed no major abnormalities he did have a low-grade fever and 100.1. Patient is breathing without difficulty and resting comfortable in bed. We did administer 1500 mL of normal saline. Repeat lactic acid was decreased to 2.3. At this time patient is well enough for discharge back to custodial. He does have nursing supervision and is instructed to return if symptoms should worsen or change. Return parameters were discussed in detail with both the patient and the officers present. They verbalize understanding and agree with this plan. - Lab Data Result diagrams: 01/09/20 11:58 01/09/20 11:58 Lab Results 01/09/20 01/09/20 01/09/20 Range/Units 11:58 11:58 11:58 WBC 4.5 (3.8-10.6) k/uL RBC 3.92 L (4.30-5.90) m/uL Hgb 11.9 L (13.0-17.5) gm/dL Hct 35.3 L (39.0-53.0) % MCV 90.0 (80.0-100.0) fL MCH 30.3 (25.0-35.0) pg MCHC 33.6 (31.0-37.0) g/dL RDW 13.4 (11.5-15.5) % Plt Count 229 (150-450) k/uL Neutrophils % 62 % Lymphocytes % 31 % Monocytes % 5 % Eosinophils % 1 % Basophils % 0 % Neutrophils # 2.8 (1.3-7.7) k/uL Lymphocytes # 1.4 (1.0-4.8) k/uL Monocytes # 0.2 (0-1.0) k/uL Eosinophils # 0.0 (0-0.7) k/uL Basophils # 0.0 (0-0.2) k/uL Sodium 137 (137-145) mmol/L Potassium 4.7 (3.5-5.1) mmol/L Chloride 103 (98-107) mmol/L Carbon Dioxide 22 (22-30) mmol/L Anion Gap 12 mmol/L BUN 28 H (9-20) mg/dL Creatinine 1.58 H (0.66-1.25) mg/dL Est GFR (CKD-EPI)AfAm 56 (>60 ml/min/1.73 sqM) Est GFR (CKD-EPI)NonAf 49 (>60 ml/min/1.73 sqM) Glucose 207 H (74-99) mg/dL Plasma Lactic Acid Luis 2.8 H* (0.7-2.0) mmol/L Calcium 8.7 (8.4-10.2) mg/dL Total Bilirubin 0.4 (0.2-1.3) mg/dL AST 44 (17-59) U/L ALT 41 (4-49) U/L Alkaline Phosphatase 192 H (38-126) U/L C-Reactive Protein 73.5 H (<10.0) mg/L Total Protein 7.8 (6.3-8.2) g/dL Albumin 4.1 (3.5-5.0) g/dL Lipase 139 (23-300) U/L Coronavirus (PCR) (Not Detectd) 01/09/20 01/09/20 Range/Units 11:58 14:00 WBC (3.8-10.6) k/uL RBC (4.30-5.90) m/uL Hgb (13.0-17.5) gm/dL Hct (39.0-53.0) % MCV (80.0-100.0) fL MCH (25.0-35.0) pg MCHC (31.0-37.0) g/dL RDW (11.5-15.5) % Plt Count (150-450) k/uL Neutrophils % % Lymphocytes % % Monocytes % % Eosinophils % % Basophils % % Neutrophils # (1.3-7.7) k/uL Lymphocytes # (1.0-4.8) k/uL Monocytes # (0-1.0) k/uL Eosinophils # (0-0.7) k/uL Basophils # (0-0.2) k/uL Sodium (137-145) mmol/L Potassium (3.5-5.1) mmol/L Chloride (98-107) mmol/L Carbon Dioxide (22-30) mmol/L Anion Gap mmol/L BUN (9-20) mg/dL Creatinine (0.66-1.25) mg/dL Est GFR (CKD-EPI)AfAm (>60 ml/min/1.73 sqM) Est GFR (CKD-EPI)NonAf (>60 ml/min/1.73 sqM) Glucose (74-99) mg/dL Plasma Lactic Acid Luis 2.3 H* (0.7-2.0) mmol/L Calcium (8.4-10.2) mg/dL Total Bilirubin (0.2-1.3) mg/dL AST (17-59) U/L ALT (4-49) U/L Alkaline Phosphatase (38-126) U/L C-Reactive Protein (<10.0) mg/L Total Protein (6.3-8.2) g/dL Albumin (3.5-5.0) g/dL Lipase (23-300) U/L Coronavirus (PCR) Detected A (Not Detectd) - EKG Data -: EKG Interpreted by [facility] EKG Comments: EKG obtained at 1153 shows normal sinus rhythm with a ventricular rate of 63, ID interval 166, QRS duration 80, QT 398, QTC 407. No evidence of ST elevation or depression. - Radiology Data Radiology results: report reviewed, image reviewed One view x-ray of the chest is obtained. Report was reviewed in its entirety. Impression by Dr. Aaron shows peripheral left midlung pneumonia. One view x-ray of the abdomen is obtained. Report was reviewed in its entirety. Impression by Dr. Aaron shows unremarkable abdomen. Disposition Clinical Impression: COVID-19, Pneumonia involving left lung Disposition: HOME SELF-CARE Condition: Good Instructions (If sedation given, give patient instructions): Viral Pneumonia (ED) Additional Instructions: Continue zofran. Start with clear liquid diet and advance as tolerated. Complete antibiotic prescription in full. Follow up with the primary care physician. Return for intolerance of oral intake, worsening respiratory status, or any other concern. Prescriptions: Azithromycin 250 mg PO DAILY 4 Days #4 tab Is patient prescribed a controlled substance at d/c from ED?: No Referrals: None,Stated [Primary Care Provider] - 1-2 days Time of Disposition: 14:35
[2020-01-09 12:25] LABS: Basophils % (A) 0 %; Eosinophils % (A) 1 %; HCT 35.3 % (39.0-53.0); HGB 11.9 gm/dL (13.0-17.5); Lymphocytes # (A) 1.4 k/uL (1.0-4.8); Lymphocytes % (A) 31 %; MCH 30.3 pg (25.0-35.0); MCHC 33.6 g/dL (31.0-37.0); Mean Platelet Volume 6.8; Monocytes # (A) 0.2 k/uL (0-1.0); Monocytes % (A) 5 %; Neutrophils # (A) 2.8 k/uL (1.3-7.7); Neutrophils % (A) 62 %; Platelet Count 229 k/uL (150-450); RBC 3.92 m/uL (4.30-5.90); RDW 13.4 % (11.5-15.5); WBC 4.5 k/uL (3.8-10.6)
[2020-01-09 12:43] LABS: Albumin 4.1 g/dL (3.5-5.0); C Reactive Protein 73.5 mg/L (<10.0); Calcium 8.7 mg/dL (8.4-10.2); Potassium 4.7 mmol/L (3.5-5.1); Total Bilirubin 0.4 mg/dL (0.2-1.3); Total Protein 7.8 g/dL (6.3-8.2)
--- NOTE | 2020-01-09 12:54 | XR ---
EXAMINATION TYPE: XR abdomen 1V DATE OF EXAM: 01/09/2020 COMPARISON: 11/17/2019 HISTORY: Chest pain abdomen pain TECHNIQUE: Single upright view abdomen FINDINGS: Nonspecific bowel gas is present. Air is within the colon. Psoas margins are normal. Organo megaly is not evident. No mass effect is evident. No suspicious calcifications are evident. Osseous s tructures are unremarkable. IMPRESSION: 1. Unremarkable abdomen
--- NOTE | 2020-01-09 12:55 | XR ---
EXAMINATION TYPE: XR chest 1V portable DATE OF EXAM: 01/09/2020 COMPARISON: 12/20/2019 INDICATION: Chest pain abdomen pain TECHNIQUE: Single frontal view of the chest is obtained. FINDINGS: The heart size is normal. The pulmonary vasculature is normal. There is a left midlung peripheral consolidation better visualized currently. Correlate for pneumonia . Streak opacity extends into the left infrahilar region and towards the left diaphragm could be some additional atelectasis. IMPRESSION: 1. Peripheral left midlung pneumonia
[2020-01-09] MEDS ORDERED: SODIUM CHLORIDE 0.9% 500 ML 500 ML IV ONE (13:02)
[2020-01-09] MEDS ORDERED: AZITHROMYCIN 500 MG TAB PO STA (13:25)
[2020-01-09 14:54] VITALS: BP 111/59; PULSE 56; TEMP 98.6
== END 2020-01-09 14:45 | disposition home or self-care (01) ==
LOC: EC 11:11
DX: U07.1 COVID-19 (principal); J12.89 Other viral pneumonia; E11.9 Type 2 diabetes mellitus without complications; Z79.82 Long term (current) use of aspirin; Z79.4 Long term (current) use of insulin; Z79.899 Other long term (current) drug therapy; Z87.891 Personal history of nicotine dependence; Z95.2 Presence of prosthetic heart valve
CPT/HCPCS: 36415; 71045; 74018; 80053; 83605; 83690; 85025; 86140; 87040; 87635; 93005; 96360; 99284